=== PATIENT | female | born 1975 | race Caucasian/White ===

== ENCOUNTER 2017-08-22 | Inpatient (IN) | payer MEDICAID, SELFPAY | END 2017-08-26 08:15 | disposition home or self-care (01) | DRG 743 | PROVIDERS: Admitting Provider Obstetrics & Gynecology; Family Provider Family Medicine; Visit Provider Obstetrics & Gynecology | DX: N93.8 Other specified abnormal uterine and vaginal bleeding (principal); D25.9 Leiomyoma of uterus, unspecified; N83.202 Unspecified ovarian cyst, left side; N73.6 Female pelvic peritoneal adhesions (postinfective) | CPT/HCPCS: 58150; 49999; 36415; 36430; 81001; 85014; 85018; 86078; 86850; 86900; 86901; 86920; 86922; 87040; 96372; 96375; G0238; J0131; J2405; J2710; P9016 ==

== ENCOUNTER → 2017-12-23 12:46 | Outpatient (CLI) | payer MEDICAID, SELFPAY ==
--- NOTE | 2017-12-23 13:21 | US_ITS ---
US transvaginal HISTORY: Follow-up ovarian cyst ITS.REASON: OVARIAN CYSTS ORDERING PHYSICIAN: Eugene Michel MD PATIENT AGE: 42 years COMPARISON: 07/02/2017 FINDINGS: The uterus and left ovary have been removed surgically. The right ovary is 4.5 x 2.3 x 2.9 cm. There is a small right ovarian cyst at 1 cm and there is a septated 1.5 cm right ovarian cyst as well. Previously the largest right ovarian cyst was 2.3 cm. IMPRESSION: 1. Small right ovarian cysts. 2. Interval hysterectomy and left oophorectomy
== END ==
PROVIDERS: Family Provider Family Medicine; PCP Nurse Practitioner; Visit Provider Obstetrics & Gynecology
DX: R10.2 Pelvic and perineal pain (principal)
CPT/HCPCS: 76830

== ENCOUNTER → 2017-12-30 14:33 | Outpatient (CLI) | payer MEDICAID, SELFPAY ==
[2018-01-02 10:43] LABS: Cancer Antigen (CA) 125 6.7 U/mL (0.0-38.1)
== END ==
PROVIDERS: Visit Provider Obstetrics & Gynecology
DX: N94.9 Unspecified condition associated with female genital organs and menstrual cycle (principal)
CPT/HCPCS: 36415; 86316

== ENCOUNTER → 2018-01-16 14:00 | Outpatient (CLI) | payer MEDICAID, SELFPAY ==
[2018-01-16 14:07] LABS: Microscopic, Urine URINE MICROSCOPIC (MICROSCOPIC)
[2018-01-16 14:41] LABS: Appearance,Urine CLEAR (Clear); Blood, Urine 1+ (Negative); Color,Urine YELLOW (Yellow); Glucose,Urine (UA) Negative (Negative); Ketones,Urine TRACE (Negative); Leukocyte Esterase,Urine Negative (Negative); Nitrate,Urine Negative (Negative); Protein,Urine TRACE (Negative); Specific Gravity, Urine >= 1.030 (1.005-1.030); Urobilinogen,Urine 0.2 EU/dl (0.2)
[2018-01-16 14:43] LABS: Bilirubin,Urine 1+ (Negative)
[2018-01-16 14:58] LABS: Basophils # 0.1 K/mm3 (0-0.2); Basophils % 0.9 % (0.1-2.0); Eosinophils # 0.2 K/mm3 (0.0-0.4); Eosinophils % 2.4 % (0.1-12.0); Hematocrit 45.8 % (37.0-47.0); Lymphocytes # 2.8 K/mm3 (0.7-4.5); Lymphocytes % 34.6 K/mm3 (10-50); Mean Corpuscular HGB Conc 32.7 g/dL (31.8-35.4); Mean Corpuscular Hemoglobin 27.6 pg (27.0-31.2); Mean Corpuscular Volume 84.4 fl (81-99); Mean Platelet Volume 8.9 fl (7.4-10.4); Monocytes # 0.5 K/mm3 (0.1-1.0); Monocytes % 5.8 % (1.7-9.3); Neutrophils # 4.6 K/mm3 (1.8-7.8); Neutrophils % 56.4 % (37.0-80.0); Platelet Count 229 K/mm3 (142-424); Red Blood Count 5.43 M/mm3 (4.20-5.40); Red Cell Distribution Width 15.2 % (11.5-17.5); White Blood Count 8.1 K/mm3 (4.8-10.8)
[2018-01-16 17:38] LABS: Amorphous Sediment,Urine Trace /lpf; Mucus,Urine 1+ /lpf
[2018-01-16 17:55] LABS: Alanine Aminotransferase 25 U/L (12-78); Albumin Level 4.1 gm/dL (3.4-5.0); Albumin/Globulin Ratio 1.4 (1.1-1.8); Alkaline Phosphatase 69 U/L (46-116); Anion Gap 17.1 mEq/L (5-15); Aspartate Amino Transferase 16 U/L (15-37); Bilirubin,Total 0.2 mg/dL (0.2-1.0); Blood Urea Nitrogen 15 mg/dL (7-18); Calcium 9.3 mg/dL (8.5-10.1); Carbon Dioxide 22 mmol/L (21.0-32.0); Chloride 107 mmol/L (98-107); Creatinine,Serum 0.59 mg/dL (0.55-1.02); Estimated Glomerular Filt Rate 112 ml/min (>60); GFR (African American) 136 ML/MIN (>60); Glucose 122 mg/dL (74-106); Potassium 4.1 mmoL/L (3.5-5.1); Sodium 142 mmol/L (136-145); Total Protein,Serum 7.1 gm/dL (6.4-8.2)
== END ==
PROVIDERS: Visit Provider Obstetrics & Gynecology
DX: Z01.818 Encounter for other preprocedural examination (principal); N94.9 Unspecified condition associated with female genital organs and menstrual cycle; R10.2 Pelvic and perineal pain
CPT/HCPCS: 36415; 80053; 81001; 85025

== ENCOUNTER → 2018-02-10 12:52 | Outpatient (CLI) | payer MEDICAID, SELFPAY ==
--- NOTE | 2018-02-10 12:53 | MM_ITS ---
MM Dig mamm DX unilat LT CAD, US breast LT complete INDICATION: Follow-up abnormal mammogram and left breast biopsy ORDERING PHYSICIAN: Eugene Michel MD PATIENT AGE: 42 years COMPARISON: 07/02/2017, 06/05/2016 TECHNIQUE: Standard images performed along with problem solving views and left breast ultrasound FINDINGS: Dense fibroglandular tissue decreasing sensitivity of mammography. There is some asymmetric density in the medial aspect of the left breast which does appear to compress out on spot compression view. Previously there was a 14 mm nodular opacity in this region not readily apparent on today's exam. There was some asymmetric density in the inferior aspect of the left breast which did also appear to compress out as fibroglandular tissue. No malignant appearing mass or malignant appearing microcalcification is evident. There are clips present in the interaspect of the left breast as before. Left breast ultrasound: At 2:00 there is a hypoechoic area measuring 9 x 4 mm. Previously this measured 13 x 6 mm. This likely represents the area that was biopsied on 08/12/2017. No solid mass is evident. No suspicious abnormalities. IMPRESSION: Benign findings, postsurgical changes, no evidence of malignancy BI-RADS Category: 2 Benign Finding(s) RECOMMENDED FOLLOW-UP: 6M - 6 MONTH FOLLOW-UP Recommend resume bilateral screening mammogram June 2018 (A letter has been sent to the patient regarding results of the study.)
== END ==
PROVIDERS: Family Provider Family Medicine; PCP Family Medicine; Visit Provider Obstetrics & Gynecology
DX: R92.8 Other abnormal and inconclusive findings on diagnostic imaging of breast (principal)
CPT/HCPCS: 76641; 77065

== ENCOUNTER → 2018-05-13 08:41 | Outpatient (CLI) | payer MEDICAID, SELFPAY ==
--- NOTE | 2018-05-13 08:42 | US_ITS ---
US thyroid HISTORY: Choking, difficulty swallowing ITS.REASON: goiter ORDERING PHYSICIAN: Jorge Moss MD PATIENT AGE: 42 years Comparison: None FINDINGS: The right lobe is 4.1 x 1.3 x 1.9 cm 4 mm hypoechoic nodule upper pole 3 mm hypoechoic nodule lower pole, 4 mm complex cystic nodule lower pole 6 mm isoechoic nodule lower pole The left lobe is 3.7 x 1 x 1.7 cm. 4 mm hypoechoic nodule upper pole 3 mm hypoechoic nodule lower pole 3 mm solid-appearing nodule lower pole The isthmus is upper normal at 4 mm IMPRESSION: There are small bilateral thyroid nodules which are of low suspicion for malignancy. Consider 6 month follow-up to confirm stability
--- NOTE | 2018-05-13 08:42 | FL_ITS ---
EXAM: Barium swallow/esophagram. INDICATION: Dysphasia, enlarged thyroid ITS.REASON: dysphagia ORDERING PHYSICIAN: Jorge Moss MD PATIENT AGE: 42 years COMPARISON: None TECHNIQUE: In the upright position the patient was observed to swallow barium in both the AP and lateral view. The cervical esophagus was examined under fluoroscopy with images obtained. The patient was then placed prone in the right anterior oblique position and was observed to swallow barium with Valsalva technique . FLUOROSCOPY TIME: 52 seconds FINDINGS: There was no evidence of aspiration. There was normal peristalsis. No filling defects or mucosal abnormalities. No masses or strictures. The esophagus is midline. No esophageal deviation or compression. There is a small sliding hernia. Reflux was not demonstrated during the exam IMPRESSION: Small sliding hiatal hernia otherwise barium swallow. No esophageal compression or deviation
[2018-05-13 11:09] LABS: Free T4 (Free Thyroxine) 0.83 ng/dl (0.76-1.46); Thyroid Stimulating Hormone 1.06 uIU/ml (0.358-3.740)
[2018-05-15 13:22] LABS: Thyroid Peroxidase Antibodies 10 IU/mL (0-34)
[2018-05-15 17:28] LABS: Calcitonin <2.0 pg/mL (0.0-5.0); Thyroid Stimulating Immunoglob <0.10 IU/L (0.00-0.55)
== END ==
PROVIDERS: Family Provider Family Medicine; PCP Family Medicine; Visit Provider Otolaryngology
DX: E01.0 Iodine-deficiency related diffuse (endemic) goiter (principal); E04.9 Nontoxic goiter, unspecified
CPT/HCPCS: 36415; 74220; 76536; 82308; 84439; 84443; 84445; 86376

== ENCOUNTER → 2018-08-17 09:05 | Outpatient (CLI) | payer MEDICAID, SELFPAY ==
--- NOTE | 2018-08-17 09:16 | US_ITS ---
US thyroid HISTORY: Follow-up goiter, bilateral nodules ITS.REASON: GOITER ORDERING PHYSICIAN: Jorge Moss MD PATIENT AGE: 42 years Comparison: None FINDINGS: The right lobe is 4.1 x 1.3 x 1.7 cm. Multiple small cysts are present in the right lobe including a 4 mm hypoechoic nodule in the lower pole with a central area of increased echogenicity unchanged. The left lobe is 3.9 x 1.0 x 1.5 cm containing several small cysts the largest is 3 mm in the upper pole. The isthmus is slightly prominent at 4 mm. No solid suspicious nodules evident. IMPRESSION: Small bilateral thyroid nodules overall not significantly changed with low level of suspicion for malignancy
== END ==
PROVIDERS: PCP Family Medicine; Visit Provider Otolaryngology
DX: E04.9 Nontoxic goiter, unspecified (principal)
CPT/HCPCS: 76536

== ENCOUNTER → 2019-04-16 12:48 | Outpatient (CLI) | payer MEDICAID, SELFPAY ==
--- NOTE | 2019-04-16 12:50 | MM_ITS ---
MM Dig mamm BI DX w/CAD COMPARISON: Digital left mammogram with CAD 02/10/2018 and digital left mammogram with CAD 08/04/2017 INDICATION: Previous biopsy left breast for benign disease now complaining of possible new palpable area in her quadrant, also intermittent nipple discharge TECHNIQUE: Standard MLO and CC views were obtained along with spot compression MLO and CC views FINDINGS: Moderate scattered and heterogenic fibro glandular densities are seen throughout both breasts. Surgical clips are seen in the lower central portion left breast as before at the biopsy site. Marker was placed on the patient's skin inner left breast at the possible palpable site but there is no underlying abnormality. Ultrasound performed same date show no abnormality dislocation. There is a hypoechoic nodular lesion at the 1 to 2:00 position similar in size and appearance the previous ultrasound exam possibly due to a fibroadenoma but also could be secondary to scarring from the previous biopsy. There is a mole marker right breast. There is a possible asymmetric density outer quadrant right breast not definitely seen on the previous mammogram of the right breast June 2017. Recommend the patient return for spot compression views and ultrasound for additional evaluation. IMPRESSION: Stable post biopsy changes left breast, possible new developing asymmetric density right breast BI-RADS Category: 0 Need Additional Imaging Evaluation RECOMMENDED FOLLOW-UP: IMM - IMMEDIATE FOLLOW-UP RECOMMENDED (A letter has been sent to the patient regarding results of the study.)
== END ==
PROVIDERS: PCP Internal Medicine Adolescent Medicine; Visit Provider Obstetrics & Gynecology
DX: N63.20 Unspecified lump in the left breast, unspecified quadrant (principal)
CPT/HCPCS: 76641; 77066

== ENCOUNTER → 2019-04-17 09:47 | Outpatient (CLI) | payer MEDICAID, SELFPAY ==
--- NOTE | 2019-04-17 09:58 | XR_ITS ---
XR sacroiliac joint BI min 3V CLINICAL INDICATION: Pain ORDERING PHYSICIAN: Matthew Pedersen MD PATIENT AGE: 43 years Comparison: None FINDINGS: SI joints are unremarkable. No fracture, sclerosis, or lytic change evident. Minimal spurring noted along the inferior aspect of the right SI joint. IMPRESSION: Minimal degenerative change right SI joint otherwise negative
--- NOTE | 2019-04-17 09:58 | XR_ITS ---
XR hip LT 2-3V w/pelvis HISTORY: Pain ORDERING PHYSICIAN: Matthew Pedersen MD PATIENT AGE: 43 years COMPARISON: None FINDINGS: No fracture or dislocation is evident. No significant degenerative change. No lytic or blastic change. Unremarkable soft tissues IMPRESSION: Negative hip
== END ==
PROVIDERS: PCP Internal Medicine Adolescent Medicine; Visit Provider Internal Medicine Adolescent Medicine
DX: M25.552 Pain in left hip (principal); M54.5 Low back pain
CPT/HCPCS: 72202; 73502

== ENCOUNTER → 2019-04-30 13:25 | Outpatient (CLI) | payer MEDICAID, SELFPAY ==
--- NOTE | 2019-04-30 | US_ITS ---
PROCEDURE: MM DIG MAMM DX UNILAT RT CAD Right breast ultrasound complete with axilla CLINICAL INDICATION: abnormal mammogram COMPARISON: DMDXUL DIG MAMM-DX UNI-LT W/CAD from 08/12/2017 DXLT MM Dig mamm DX unilat LT CAD from 02/10/2018 DIG MAMM-SCREEN DAYNA from 04/16/2019 US BREAST RT COMPLETE from 04/30/2019 TECHNIQUE: Standard CC and MLO images were obtained. R2 CAD reviewed. Right breast ultrasound complete with axilla FINDINGS: Average fibroglandular tissue. There is a lobular 2.9 x 1.4 cm nodular density within the lower outer aspect of the right breast persistent on spot compression views. No malignant appearing microcalcifications. Right breast ultrasound: At 12 o'clock there is a 3 mm by 5 mm cyst. At 1 o'clock there is a 12 x 3 mm hypoechoic nodule which may represent a complex cyst. At 9 o'clock there is a 9 x 4 mm complex cystic nodule. 10 o'clock there is an 8 x 2 mm cyst. 11 o'clock there is a 9 by 9 mm complex cyst. There is a complex 2.6 x 0.7 cm nodular lesion at 9 o'clock containing both solid and cystic components parallel with the chest wall likely corresponding to the mammographic abnormality. IMPRESSION: Lobular 2.9 x 1.4 cm lesion at 9 o'clock in the right breast. This does not represent a simple cyst by ultrasound and is mildly suspicious and could represent a fibroadenoma. Biopsy is recommended. Suggest ultrasound guided mammotome biopsy BI-RAD Category: 4 Supicious Abnormality- Biopsy Considered FOLLOW-UP: Biopsy Recommended (A letter has been sent to the patient regarding results of the study.) Dictated by: Zeke Valladares MD 05/07/2019 09:36 Signed by: <Electronically signed by Zeke Valladares MD in [place]> 05/07/2019 09:36
== END ==
PROVIDERS: PCP Internal Medicine Adolescent Medicine; Visit Provider Obstetrics & Gynecology
DX: R92.8 Other abnormal and inconclusive findings on diagnostic imaging of breast (principal)
CPT/HCPCS: 76641; 77065

== ENCOUNTER → 2019-05-25 09:28 | Outpatient (CLI) | payer MEDICAID, SELFPAY ==
--- NOTE | 2019-05-25 09:30 | US_ITS ---
PROCEDURE: US MAMMOTOME BX RT CLINICAL INDICATION: abnormal mammogram Abnormal mammogram and ultrasound demonstrating a complex nodule in the right breast at 9 o'clock COMPARISON: US BREAST RT COMPLETE from 04/30/2019 MM DIG MAMM DX UNILAT RT CAD from 04/30/2019 MM CLIP PLACEMENT RT from 05/25/2019 FINDINGS: Following obtaining informed consent under aseptic conditions and local anesthesia with 1 percent buffered lidocaine and deeper anesthesia with lidocaine mixed with epinephrine, a skin sarah was performed and 9 gauge a mammotome needle inserted under sonographic guidance. Multiple cores were obtained and a sterile non ferromagnetic clip placed. The patient tolerated the procedure well without evidence of immediate complication. Post biopsy mammogram: Clip is present in the outer aspect of the right breast in the area of the mammographic abnormality. The rounded nodular area is less apparent. There are post biopsy changes. Pathology: Benign breast parenchyma with focal fibrocystic change negative for atypical ductal hyperplasia DCS or invasive carcinoma IMPRESSION: Uneventful ultrasound-guided mammotome biopsy of the right breast showing benign findings. Recommend six-month mammographic and sonographic follow-up per routine protocol Dictated by: Zeke Valladares MD 06/01/2019 17:48 Electronically signed by Zeke Valladares MD in [place] 06/01/2019 17:48
== END ==
PROVIDERS: PCP Internal Medicine Adolescent Medicine; Visit Provider Obstetrics & Gynecology
DX: R92.8 Other abnormal and inconclusive findings on diagnostic imaging of breast (principal); N63.12 Unspecified lump in the right breast, upper inner quadrant
CPT/HCPCS: 19083; 77065; C2618

== ENCOUNTER → 2019-08-26 13:47 | Outpatient (CLI) | payer MEDICAID, SELFPAY ==
[2019-08-26 19:32] LABS: Chloride 106 mmol/L (98-107); Potassium 4.8 mmoL/L (3.5-5.1); Sodium 145 mmol/L (136-145)
[2019-08-26 19:52] LABS: Alanine Aminotransferase 21 U/L (12-78); Albumin Level 4.4 gm/dL (3.4-5.0); Albumin/Globulin Ratio 1.5 (1.1-1.8); Alkaline Phosphatase 103 U/L (46-116); Anion Gap 16.8 mEq/L (5-15); Aspartate Amino Transferase 13 U/L (15-37); Bilirubin,Total 0.3 mg/dL (0.2-1.0); Blood Urea Nitrogen 12 mg/dL (7-18); Calcium 9.3 mg/dL (8.5-10.1); Carbon Dioxide 27 mmol/L (21.0-32.0); Creatinine,Serum 0.64 mg/dL (0.55-1.02); Estimated Glomerular Filt Rate 102 ml/min (>60); Free Thyroxine Index 3.5 ug/dL (5.93-13.13); GFR (African American) 123 ML/MIN (>60); Glucose 89 mg/dL (74-106); T4 (Thyroxine) 10.3 ug/dl (4.7-13.3); Thyroid Stimulating Hormone 0.86 uIU/ml (0.358-3.740); Total Protein,Serum 7.4 gm/dL (6.4-8.2); Triiodothryronine (T3) Uptake 34 % (31-39)
== END ==
PROVIDERS: Visit Provider Internal Medicine Adolescent Medicine
DX: I16.0 Hypertensive urgency (principal)
CPT/HCPCS: 36415; 80053; 84436; 84443; 84479

== ENCOUNTER 2019-10-04 13:02 | Observation (INO) ==
--- NOTE | 2019-10-04 13:30 | Pharmacy Consult Notes ---
[facility] Pharmacy VTE Monitoring - Patient Demographics Admission date: 10/04/19 Report Date: 10/04/19 Time: 13:30 Allergies/Adverse Reactions: Patient Allergies hydromorphone Allergy (Severe, Verified 08/26/19 09:50) S-DIFF. BREATHING propoxyphene [From DARVOCET-N] Allergy (Intermediate, Verified 08/26/19 09:50) SHORTNESS OF BREATH - Prophylaxis VTE Prophylaxis Ordered?: Yes Types of VTE Prophylaxis: TEDS Knee High Location of Applied Device: Bilateral Lower Extremeties - VTE Diagnosis Confirmed Treatment or plan recommended: Continue Current Treatment
[2019-10-04 14:36] LABS: Basophils % 0.5 % (0.1-2.0); Eosinophils # 0.2 K/mm3 (0.0-0.4); Eosinophils % 1.7 % (0.1-12.0); Hematocrit 50.5 % (37.0-47.0); Hemoglobin 16.7 g/dL (12.2-16.2); Lymphocytes # 2.4 K/mm3 (0.7-4.5); Lymphocytes % 26.6 % (10-50); Mean Corpuscular Volume 89.5 fl (81-99); Mean Platelet Volume 9.3 fl (7.4-10.4); Monocytes # 0.6 K/mm3 (0.1-1.0); Neutrophils % 65.3 % (37.0-80.0); Platelet Count 232 K/mm3 (142-424); Red Blood Count 5.65 M/mm3 (4.20-5.40); White Blood Count 9.2 K/mm3 (4.8-10.8)
[2019-10-04 14:53] LABS: Albumin/Globulin Ratio 1.3 (1.1-1.8); Anion Gap 12.6 mEq/L (5-15); Bilirubin,Total 0.3 mg/dL (0.2-1.0); Calcium 9.2 mg/dL (8.5-10.1); Globulin 3.2 gm/dl (1.3-3.2); Total Protein,Serum 7.2 gm/dL (6.4-8.2)
[2019-10-04 17:02] LABS: Microscopic, Urine URINE MICROSCOPIC (MICROSCOPIC)
[2019-10-04 17:06] LABS: Appearance,Urine CLEAR (Clear); Bilirubin,Urine Negative (Negative); Blood, Urine 1+ (Negative); Color,Urine YELLOW (Yellow); Glucose,Urine (UA) Negative (Negative); Ketones,Urine Negative (Negative); Leukocyte Esterase,Urine Negative (Negative); Protein,Urine Negative (Negative); Urobilinogen,Urine 0.2 EU/dl (0.2)
[2019-10-04 17:15] LABS: Bacteria,Urine Trace /lpf; RBC,Urine Occasional #/hpf (0-3); Squamous Epithelial Cell,Urine Occasional #/hpf (0-5); WBC,Urine Occasional #/hpf (0-3)
--- NOTE | 2019-10-04 17:15 | History & Physical Report ---
*Admission Date: 10/04/19 *Chief complaint: Left-sided flank pain. Hematuria *History of present illness: 43-year-old white female who went to the emergency department over the weekend with a chief complaint of flank pain, noted to have hematuria but CT stone protocol was unremarkable and she was treated with Toradol injections and discharged. She has failed to improve over the last 24 hours, came to my office, found to be tachycardic, and pain, CVA tenderness was noted, admitted to observation for repeat CT scanning, IV fluids and pain control. [facility] History I have reviewed the patient's past medical history: Yes Medical History: Reports:: Hypertension Denies:: Cancer, Diabetes Mellitus Type 1, Diabetes Mellitus Type 2, Internal Pacemaker, MRSA, Seizures *Have you ever received a pneumonia vaccine?: No *Have you received a flu vaccine this season?: No Other Medical History: Reports: Blood Transfusion Reaction, Hormone Therapy, Thyroid Disease, Other Laterality Cases: Left: Lumpectomy, Mastectomy, Bilateral: Other Other Surgeries: Yes: Hysterectomy-Total, Ureter Stent, Other. No: Pacemaker Amputation: No Fractures: No - *Social History Educational Level: Completed High School Smoking Status: Current every day smoker Tobacco Type: cigarettes # Packs/Day (cigarettes): 1 Alcohol Intake: never Alcohol Intake Frequency:: other Substance Use Type: denies use *Occupational Status:: unemployed Housing: house Household Members: spouse, children *Travel in the last 8 weeks: None Family Hx:: Coronary Artery Disease, Hypertension, Cancer, Diabetes Review of Systems - Review of Systems Review of systems:: pertinent systems reviewed and negative unless documented below - Constitutional Denies anorexia, Denies fever(s), Denies headache(s) - Eyes Denies blind spots - ENT Denies abnormal hearing, Denies dizziness, Denies dry mouth - *Cardiovascular Denies chest pain, Denies excessive sweating, Denies shortness of breath, Denies generalized swelling, Denies irregular heart rhythm - *Respiratory Denies change in phlegm color, Denies chest congestion, Denies shortness of breath with activity, Denies excessive phlegm production, Denies coughing up blood - *Gastrointestinal Reports abdominal pain, Denies change in bowel habits, Denies change in stools, Denies coffee ground vomit, Denies constipation - *Genitourinary Denies abnormal periods - *Musculoskeletal Denies abnormal walking, Denies joint swelling - Integumentary/Breasts Denies acne, Denies change in skin color - *Neurologic Denies abnormal walking, Denies behavioral changes Meds Home Medications Medication Instructions Recorded Confirmed Type Ondansetron [Zofran 4mg ODT] 4 mg PO TIDP PRN #10 tab.rapdis 09/24/19 10/04/19 Rx lisinopriL [Lisinopril 10mg Tab] 10 mg PO DAILY 10/04/19 10/04/19 History Allergies Allergy/AdvReac Type Severity Reaction Status Date / Time hydromorphone Allergy Severe S-DIFF. Verified 08/26/19 09:50 BREATHING propoxyphene Allergy Intermediate SHORTNESS Verified 08/26/19 09:50 [From GALILEOLynette] OF BREATH Exam Vital signs and Labs for Last 24 Hours: Temp Pulse Resp BP Pulse Ox 98.2 F 78 20 156/98 H 97 10/04/19 16:00 10/04/19 16:00 10/04/19 16:00 10/04/19 16:00 10/04/19 16:00 Laboratory Results - last 24 hr 10/04/19 14:16: WBC 9.2, RBC 5.65 H, Hgb 16.7 H, Hct 50.5 H, MCV 89.5, MCH 29.5, MCHC 33.0, RDW 13.0, Plt Count 232, MPV 9.3, Neut % (Auto) 65.3, Lymph % (Auto) 26.6, [place] % (Auto) 6.0, Eos % (Auto) 1.7, Baso % (Auto) 0.5, Neut # (Auto) 6.0, Lymph # (Auto) 2.4, [place] # (Auto) 0.6, Eos # (Auto) 0.2, Baso # (Auto) 0.0 10/04/19 14:16: Sodium 140, Potassium 3.6, Chloride 104, Carbon Dioxide 27, Anion Gap 12.6, BUN 13, Creatinine 0.69, Estimated Creat Clear 124, Estimated GFR 93, Est GFR ( Amer) 113, Glucose 83, Calcium 9.2, Magnesium 1.9, Total Bilirubin 0.3, AST 12 L, ALT 21, Alkaline Phosphatase 85, Total Protein 7.2, Albumin 4.0, Globulin 3.2, Albumin/Globulin Ratio 1.3, Amylase 29 10/04/19 14:16: Lipase 112 10/04/19 17:00: Urine Color Yellow, Urine Appearance Clear, Urine pH 6.0, Ur Specific [place] 1.010, Urine Protein Negative, Urine Glucose (UA) Negative, Urine Ketones Negative, Urine Blood 1+, Urine Nitrate Negative, Urine Bilirubin Negative, Urine Urobilinogen 0.2, Ur Leukocyte Esterase Negative I & O for Last 24 hours: Intake & Output 10/02/19 10/03/19 10/04/19 10/05/19 11:59 11:59 11:59 11:59 Intake Total 240 / 240 Output Total 0 / 0 Balance 240 / 240 Weight 163 lb 6 oz Narrative: Patient is in discomfort. Significant pain with CVA palpation. Tachycardia noted. Blood pressure is acceptable however. No JVD, oropharynx slightly dry. Lungs are clear, heart rate tachycardic but regular. Abdomen is soft but tender in the flanks and in both CVA areas, left worse than right. No edema or clubbing. Neurologically intact. Assessment and Plan (1) Right lower quadrant abdominal pain Current visit: No Status: Acute Category: Medical Code(s): R10.31 - Right lower quadrant pain Admit to observation, CT scan with contrast, labs, Toradol and IV fluids.
--- NOTE | 2019-10-05 11:45 | Discharge Summary ---
General - General Admission date:: 10/04/19 Discharge date: 10/05/19 HPI HPI: 43-year-old white female who went to the emergency department over the weekend with a chief complaint of flank pain, noted to have hematuria but CT stone protocol was unremarkable and she was treated with Toradol injections and discharged. She has failed to improve over the last 24 hours, came to my office, found to be tachycardic, and pain, CVA tenderness was noted, admitted to observation for repeat CT scanning, IV fluids and pain control. Objective Vital signs: Temp Pulse Resp BP Pulse Ox 97.4 F L 70 18 158/78 H 98 10/05/19 08:00 10/05/19 08:00 10/05/19 08:00 10/05/19 08:00 10/05/19 08:00 Results Labs on day of discharge: Labs from last 24 hours 10/04/19 10/04/19 10/04/19 17:00 14:16 14:16 WBC RBC Hgb Hct MCV MCH MCHC RDW Plt Count MPV Neut % (Auto) Lymph % (Auto) [place] % (Auto) Eos % (Auto) Baso % (Auto) Neut # (Auto) Lymph # (Auto) [place] # (Auto) Eos # (Auto) Baso # (Auto) Sodium 140 Potassium 3.6 Chloride 104 Carbon Dioxide 27 Anion Gap 12.6 BUN 13 Creatinine 0.69 Estimated Creat Clear 124 Estimated GFR 93 Est GFR ( Amer) 113 Glucose 83 Calcium 9.2 Magnesium 1.9 Total Bilirubin 0.3 AST 12 L ALT 21 Alkaline Phosphatase 85 Total Protein 7.2 Albumin 4.0 Globulin 3.2 Albumin/Globulin Ratio 1.3 Amylase 29 Lipase 112 Urine Color Yellow Urine Appearance Clear Urine pH 6.0 Ur Specific [place] 1.010 Urine Protein Negative Urine Glucose (UA) Negative Urine Ketones Negative Urine Blood 1+ Urine Nitrate Negative Urine Bilirubin Negative Urine Urobilinogen 0.2 Ur Leukocyte Esterase Negative Urine RBC Occasional Urine WBC Occasional Ur Squamous Epith Cells Occasional Urine Bacteria Trace 10/04/19 14:16 WBC 9.2 RBC 5.65 H Hgb 16.7 H Hct 50.5 H MCV 89.5 MCH 29.5 MCHC 33.0 RDW 13.0 Plt Count 232 MPV 9.3 Neut % (Auto) 65.3 Lymph % (Auto) 26.6 [place] % (Auto) 6.0 Eos % (Auto) 1.7 Baso % (Auto) 0.5 Neut # (Auto) 6.0 Lymph # (Auto) 2.4 [place] # (Auto) 0.6 Eos # (Auto) 0.2 Baso # (Auto) 0.0 Sodium Potassium Chloride Carbon Dioxide Anion Gap BUN Creatinine Estimated Creat Clear Estimated GFR Est GFR ( Amer) Glucose Calcium Magnesium Total Bilirubin AST ALT Alkaline Phosphatase Total Protein Albumin Globulin Albumin/Globulin Ratio Amylase Lipase Urine Color Urine Appearance Urine pH Ur Specific [place] Urine Protein Urine Glucose (UA) Urine Ketones Urine Blood Urine Nitrate Urine Bilirubin Urine Urobilinogen Ur Leukocyte Esterase Urine RBC Urine WBC Ur Squamous Epith Cells Urine Bacteria DS: Diagnosis - Discharge Diagnosis (1) Right lower quadrant abdominal pain Status: Acute Discharge Plan - Patient Discharge Instructions ACTIVITY: Continue current activity DIET: continue same diet Patient Instructions: DI for Nausea -- Adult, DI for Hematuria, DI for Flank Pain - Follow up Plan Follow up with: Matthew Pedersen MD [Primary Care Provider] - Ari Thompson MD [Staff Physician] - Disposition: Home, Self-[facility] Medications: Home Medications Medication Instructions Recorded Confirmed Type Ondansetron [Zofran 4mg ODT] 4 mg PO TIDP PRN #10 tab.rapdis 09/24/19 10/04/19 Rx lisinopriL [Lisinopril 10mg Tab] 20 mg PO DAILY 30 Days #30 tab 10/05/19 Rx Prescriptions/Medication Reconciliation: Continued Ondansetron [Zofran 4mg ODT] 4 mg PO TIDP PRN #10 tab.rapdis PRN Reason: Nausea And Vomiting Changed lisinopriL [Lisinopril 10mg Tab] 20 mg PO DAILY 30 Days #30 tab - Problem Reconciliation Problems Reviewed?: Yes
--- NOTE | 2019-10-05 11:46 | Discharge Summary ---
General - General Admission date:: 10/04/19 Discharge date: 10/05/19 HPI HPI: 43-year-old white female who went to the emergency department over the weekend with a chief complaint of flank pain, noted to have hematuria but CT stone protocol was unremarkable and she was treated with Toradol injections and discharged. She has failed to improve over the last 24 hours, came to my office, found to be tachycardic, and pain, CVA tenderness was noted, admitted to observation for repeat CT scanning, IV fluids and pain control. Hospital Course Hospital Course: Patient was admitted to the hospital for persistent pain and concern for possible pyelonephritis/flank pain. Repeat imaging showed no stones or urologic abnormality. Continued Toradol for pain control with good response. Patient had no further significant episodes during monitoring of discomfort. Denies nausea, vomiting, diarrhea, chest pain, shortness of breath. Was medically stable, plan to discharge home with close follow-up. Continued p.o. ketorolac for pain management. Discussed adequate hydration. No further acute needs at this time. Hemodynamically stable and afebrile. Cultures unremarkable Objective Vital signs: Temp Pulse Resp BP Pulse Ox 97.4 F L 70 18 158/78 H 98 10/05/19 08:00 10/05/19 08:00 10/05/19 08:00 10/05/19 08:00 10/05/19 08:00 no acute distress - *Routine HEENT Exam Head: Present: normocephalic, atraumatic Eye: Present: EOMI, PERRL ENT: Present: mucous membranes moist - *Routine Neck Exam Present: supple. Absent: JVD - *Routine Respiratory Exam Present: CTA bilaterally. Absent: accessory muscle use, wheezes, crackles - *Routine Cardiovascular Exam Present: RRR, Normal S1, Normal S2. Absent: murmur - *Routine Abdominal Exam Present: soft, normoactive bowel sounds. Absent: tenderness - *Routine Skin Exam Present: intact. Absent: cyanosis, erythema - *Routine Neurological Exam Present: alert, oriented X3 Results Labs on day of discharge: Labs from last 24 hours 10/04/19 10/04/19 10/04/19 17:00 14:16 14:16 WBC RBC Hgb Hct MCV MCH MCHC RDW Plt Count MPV Neut % (Auto) Lymph % (Auto) Ashley % (Auto) Eos % (Auto) Baso % (Auto) Neut # (Auto) Lymph # (Auto) Ashley # (Auto) Eos # (Auto) Baso # (Auto) Sodium 140 Potassium 3.6 Chloride 104 Carbon Dioxide 27 Anion Gap 12.6 BUN 13 Creatinine 0.69 Estimated Creat Clear 124 Estimated GFR 93 Est GFR ( Amer) 113 Glucose 83 Calcium 9.2 Magnesium 1.9 Total Bilirubin 0.3 AST 12 L ALT 21 Alkaline Phosphatase 85 Total Protein 7.2 Albumin 4.0 Globulin 3.2 Albumin/Globulin Ratio 1.3 Amylase 29 Lipase 112 Urine Color Yellow Urine Appearance Clear Urine pH 6.0 Ur Specific [place] 1.010 Urine Protein Negative Urine Glucose (UA) Negative Urine Ketones Negative Urine Blood 1+ Urine Nitrate Negative Urine Bilirubin Negative Urine Urobilinogen 0.2 Ur Leukocyte Esterase Negative Urine RBC Occasional Urine WBC Occasional Ur Squamous Epith Cells Occasional Urine Bacteria Trace 10/04/19 14:16 WBC 9.2 RBC 5.65 H Hgb 16.7 H Hct 50.5 H MCV 89.5 MCH 29.5 MCHC 33.0 RDW 13.0 Plt Count 232 MPV 9.3 Neut % (Auto) 65.3 Lymph % (Auto) 26.6 Ashley % (Auto) 6.0 Eos % (Auto) 1.7 Baso % (Auto) 0.5 Neut # (Auto) 6.0 Lymph # (Auto) 2.4 Ashley # (Auto) 0.6 Eos # (Auto) 0.2 Baso # (Auto) 0.0 Sodium Potassium Chloride Carbon Dioxide Anion Gap BUN Creatinine Estimated Creat Clear Estimated GFR Est GFR ( Amer) Glucose Calcium Magnesium Total Bilirubin AST ALT Alkaline Phosphatase Total Protein Albumin Globulin Albumin/Globulin Ratio Amylase Lipase Urine Color Urine Appearance Urine pH Ur Specific [place] Urine Protein Urine Glucose (UA) Urine Ketones Urine Blood Urine Nitrate Urine Bilirubin Urine Urobilinogen Ur Leukocyte Esterase Urine RBC Urine WBC Ur Squamous Epith Cells Urine Bacteria DS: Diagnosis - Discharge Diagnosis (1) Right lower quadrant abdominal pain Status: Acute (2) Renal cyst Status: Chronic (3) HTN (hypertension) Status: Chronic Discharge Plan - Patient Discharge Instructions ACTIVITY: Continue current activity DIET: continue same diet Patient Instructions: DI for Nausea -- Adult, DI for Hematuria, DI for Flank Pain - Follow up Plan Follow up with: Matthew Pedersen MD [Primary Care Provider] - Ari Thompson MD [Staff Physician] - Disposition: Home, Self-Senior Care Medications: Home Medications Medication Instructions Recorded Confirmed Type Ondansetron [Zofran 4mg ODT] 4 mg PO TIDP PRN #10 tab.rapdis 09/24/19 10/08/19 Rx Ketorolac Tromethamine [Toradol 10 mg PO Q6H PRN 4 Days #16 tab 10/05/19 10/08/19 Rx 10mg tablet] lisinopriL [Lisinopril 10mg Tab] 20 mg PO DAILY 30 Days #30 tab 10/05/19 10/08/19 Rx Prescriptions/Medication Reconciliation: New Ketorolac Tromethamine [Toradol 10mg tablet] 10 mg PO Q6H PRN 4 Days #16 tab PRN Reason: Breakthru Moderate Pain Continued Ondansetron [Zofran 4mg ODT] 4 mg PO TIDP PRN #10 tab.rapdis PRN Reason: Nausea And Vomiting Changed lisinopriL [Lisinopril 10mg Tab] 20 mg PO DAILY 30 Days #30 tab - Problem Reconciliation Problems Reviewed?: Yes
--- NOTE | 2019-10-07 15:43 | Electrocardiograph Report ---
APPROVED REPORT Exam: Resting ECG HR:63 bpm ECG Measurements Heart Rate 63 AXES OH 150 P 42 QRSd 74 QRS 65 QT 416 T61 QTc 425 <Conclusion> Normal sinus rhythm Normal ECG Electronically signed by : Matthew Pedersen, 10/07/2019 15:43:29
== END 2019-10-05 13:42 | disposition home or self-care (01) ==
LOC: 2ND
PROVIDERS: ADMIT Internal Medicine Adolescent Medicine; ATTEND Internal Medicine Adolescent Medicine
CPT/HCPCS: 74178; 80053; 81001; 82150; 83690; 83735; 85025; 90686; 93005; G0378; Q9967

== ENCOUNTER → 2019-10-15 16:21 | Outpatient (CLI) | payer OTHER, SELFPAY ==
--- NOTE | 2019-10-15 16:24 | XR_ITS ---
PROCEDURE: XR THORACIC SPINE 3V CLINICAL INDICATION: THORACIC MYOFASCIAL STRAIN Mid back pain COMPARISON: No exams were available for comparison FINDINGS: There is normal alignment. No fracture or dislocation. No lytic or blastic change. There is a mildly prominent transverse process on the at C7 as a normal variant IMPRESSION: No acute findings. Dictated by: Zeke Valladares MD 10/15/2019 16:47 Electronically signed by Zeke Valladares MD in [place] 10/15/2019 16:47
== END ==
PROVIDERS: PCP Internal Medicine Adolescent Medicine; Visit Provider Internal Medicine Adolescent Medicine
DX: S29.019D Strain of muscle and tendon of unspecified wall of thorax, subsequent encounter (principal)
CPT/HCPCS: 72072

== ENCOUNTER → 2019-11-24 14:13 | Outpatient (CLI) | payer OTHER, SELFPAY ==
--- NOTE | 2019-11-24 14:13 | US_ITS ---
PROCEDURE: MM DIG MAMM BI DX W/CAD Digital Breast Tomosynthesis Included CLINICAL INDICATION: 6 month bx. f/u COMPARISON: DMDXUL DIG MAMM-DX UNI-LT W/CAD from 08/12/2017 DXLT MM Dig mamm DX unilat LT CAD from 02/10/2018 DIG MAMM-SCREEN DAYNA from 04/16/2019 MM DIG MAMM DX UNILAT RT CAD from 04/30/2019 US BREAST RT COMPLETE from 04/30/2019 MM CLIP PLACEMENT RT from 05/25/2019 US MAMMOTOME BX RT from 05/25/2019 US BREAST RT COMPLETE from 11/24/2019 TECHNIQUE: Standard CC and MLO images and 3D Tomosynthesis was obtained. R2 CAD reviewed. Right breast ultrasound complete with axilla FINDINGS: There is average fibroglandular tissue. Scattered benign-appearing calcifications are noted. Previously noted lobular lesion in lateral aspect of the right breast is not apparent compared to the pre biopsy exam of 04/30/2019. There is a post biopsy clip in the outer aspect of the right breast. Stable asymmetry noted in the medial aspect of the right breast. There postsurgical changes of the left breast with clips in the inferior aspect of the left breast.. A clip is also present in the outer aspect of the left breast. Left breast ultrasound: The there are multiple complicated left breast cyst including a 4 mm cyst at 12 o'clock, 5 mm complicated cyst at 1 o'clock, 9 x 4 mm complicated cyst at 4 o'clock, and a an 8 x 4 mm cyst which is complicated at 9 o'clock. 8 x 4 mm cyst at 11 o'clock. No suspicious nodules evident. IMPRESSION: BI-RAD Category: 2 Benign Finding(s) FOLLOW-UP: 1YR 1 Year Follow-up (A letter has been sent to the patient regarding results of the study.) Dictated by: Zeke Valladares MD 11/30/2019 10:20 Electronically signed by Zeke Valladares MD in [place] 11/30/2019 10:20
== END ==
PROVIDERS: PCP Internal Medicine Adolescent Medicine; Visit Provider Obstetrics & Gynecology
DX: R92.8 Other abnormal and inconclusive findings on diagnostic imaging of breast (principal)
CPT/HCPCS: 76641; 77062; 77066; G0279

== ENCOUNTER 2020-01-20 18:40 | Emergency (ER) | payer OTHER, SELFPAY ==
[2020-01-20 18:41] VITALS: BP 122/85; PULSE 78; RESP 20; TEMP 36.8; O2SAT 98; BMI 28.3
--- NOTE | 2020-01-20 19:05 | XR_ITS ---
PROCEDURE: XR FOOT RT MIN 3V CLINICAL INDICATION: great toe injury Posttraumatic pain COMPARISON: [id number] XR foot RT min 3V from 08/21/2018 FINDINGS: There is a faint curve a oblique lucency along the distal and lateral aspect of the distal phalanx of the great toe as seen on the oblique view. This could be due to a Mach line or nondisplaced fracture. Please correlate with patient's area of pain and tenderness. Consider follow-up exam in 7-10 days for confirmation. IMPRESSION: Possible nondisplaced fracture involving the distal and lateral aspect of the distal phalanx of the great toe Dictated by: Zeke Valladares MD 01/20/2020 20:49 Electronically signed by Zeke Valladares MD in [place] 01/20/2020 20:49
--- NOTE | 2020-01-20 19:14 | HMH.EDGENADL ---
ED Disposition Clinical Impression: Toenail avulsion Qualifiers: Encounter type: initial encounter Qualified Code(s): S91.209A - Unspecified open wound of unspecified toe(s) with damage to nail, initial encounter Disposition: Home, Self-Care Condition on Discharge: Good Instructions: DI for Ingrown Toenail Removal Additional Instructions: Gently cleanse the toe daily and apply antibiotic ointment and bandage. Wear postop shoe for 1 week. Tylenol 3 as needed for pain. Additional instructions for CONTROLLED SUBSTANCES: You have been prescribed a medication that is a controlled substance. Controlled substances include pain medications known as opiates and sedative nerve medications known as benzodiazepines. Tramadol, fioricet, and gabapentin are also controlled substances. Some common opiates include: Codeine (such as Tylenol #3) Hydrocodone (Vicodin, Lortab, Lorcet, [place]) Oxycodone (Percocet, Percodan, Oxycodone, Oxy IR) Some common benzodiazepines include: Diazepam (Valium) Lorazepam (Ativan) Alprazolam (Xanax) Clonazepam (Klonopin) Oxazepam (Serax) All of these controlled substances are highly addictive and frequently abused. Misuse can and frequently does lead to addiction as well as overdose and . Medication should be stored in a locked cabinet or other secure storage unit. Do not store the medication in a motor vehicle. Short term supplies, 3 days or less, are prescribed because of the highly addictive nature of the medication. Any of the controlled substance medication NOT taken should be disposed of properly and NOT SAVED. The recommended method of disposing of unused medications is: Place the medicines in a sealable plastic bag. If the medicine is a solid, crush it or add water to dissolve it. Add something undesirable (cat litter, coffee grounds, etc.) Dispose of sealed bag in household trash Do not flush or pour unused medicines down a sink or drain. Controlled substances should not be shared, given away or sold. Because of the addictive nature and frequent abuse, these medications are sometimes stolen. These medications should be kept in a safe place where they cannot be stolen. Do not keep them in your car or purse. Lost or stolen prescriptions for controlled substances WILL NOT BE REFILLED in this emergency department, regardless of whether a police report was filed. Referrals: Matthew Pedersen MD [Primary Care Provider] - Forms: Work/School Release - Critical Care Critical Care Time: No Attestation: On 01/20/20, the high probability of a clinically significant, sudden or life threatening deterioration of the following system(s) required my full and direct attention, intervention and personal management. The time I documented below is in addition to time spent performing reported procedures but includes the following listed in this critical care notation. Medical Decision Making - Silverio Inquiry Pt receiving controlled substance: Yes Silverio was queried for this patient: Yes Reference #:: [id number] Risks and benefits of using a controlled substance: were discussed with pt by me Comment: in progress Vital Signs: 01/20/20 18:41 Temperature 98.2 F Temperature Source Oral Pulse Rate [Right] 78 Respiratory Rate 20 Blood Pressure [Right Arm] 122/85 Blood Pressure Mean [Right Arm] 97 02 Sat by Pulse Oximetry 98 Orders (Tests/Meds): ED MEDICATIONS Discontinued Medications Generic Name Dose Route Start Last Admin Trade Name Freq PRN Reason Stop Dose Admin Acetaminophen/Codeine Phosphate 1 tobi 01/20/20 19:42 Acetaminophen W/Codeine #3 Take Home Pack (6) PO 01/20/20 19:43 ONCE ONE Lidocaine HCl 20 ml 01/20/20 19:17 Lidocaine 2% 20ml Vial IJ 01/20/20 19:18 ONCE ONE ORDERS Category Date Time Status Foot XR right minimum 3 views [XR foot RT min 3V] Stat Exams 01/20/20 19:05 Taken - Radiology Data #1 Image(s): Foot/Toes
[2020-01-20 20:20] VITALS: BP 135/71; PULSE 82; RESP 20; TEMP 36.8; O2SAT 96
== END 2020-01-20 20:25 | disposition home or self-care (01) ==
PROVIDERS: Emergency Provider Emergency Medicine; PCP Internal Medicine Adolescent Medicine
DX: S91.211A Laceration without foreign body of right great toe with damage to nail, initial encounter (principal); W23.0XXA Caught, crushed, jammed, or pinched between moving objects, initial encounter; Y92.017 Garden or yard in single-family (private) house as the place of occurrence of the external cause; I10 Essential (primary) hypertension; Z87.442 Personal history of urinary calculi; Z90.10 Acquired absence of unspecified breast and nipple; F17.210 Nicotine dependence, cigarettes, uncomplicated; Z90.79 Acquired absence of other genital organ(s)
CPT/HCPCS: 11730; 73630; 99281

== ENCOUNTER 2020-02-10 20:33 | Emergency (ER) | payer OTHER, SELFPAY ==
[2020-02-10 20:39] VITALS: BMI 27.8
--- NOTE | 2020-02-10 20:39 | XR_ITS ---
PROCEDURE: XR TIBIA FIBULA LT 2V CLINICAL INDICATION: injury posttraumatic pain, injury with pain COMPARISON: No exams were available for comparison FINDINGS: No fracture or dislocation. No lytic or blastic change. There is some mild soft tissue swelling in the pretibial region proximally IMPRESSION: Mild soft tissue swelling otherwise negative Dictated by: Zeke Valladares MD 02/11/2020 05:32 Electronically signed by Zeke Valladares MD in [place] 02/11/2020 05:32
[2020-02-10 20:55] VITALS: BP 143/95; PULSE 103; RESP 20; TEMP 36.6; O2SAT 97; BMI 27.8
--- NOTE | 2020-02-10 21:01 | HMH.EDUTC ---
[facility] [place] Disposition Clinical Impression: Left leg pain, Hematoma Disposition: Home, Self-Care Condition on Discharge: Good Instructions: DI for Hematoma (Bruise), DI for Leg Pain Additional Instructions: Rest the extremity, a Elevate the extremity as tolerated while you are resting. Take ibuprofen for pain. I sent in a prescription to your pharmacy. Follow up with Dr. Bose (orthopedics). I put in a referral but you need to call her office and schedule an appointment. Follow up with your regular doctor. GO TO THE ER FOR ANY WORSENING SYMPTOMS Prescriptions: Ibuprofen [Ibuprofen 800mg Tablet] 800 mg PO Q8HP PRN #30 tab PRN Reason: Moderate Pain Transmission Status: Received by [facility] Referrals: Matthew Pedersen MD [Primary Care Provider] - Marcelle Bose MD [Physician] - Time of Disposition: 21:07 Medical Decision Making - Medical Records Medical records reviewed: No: I reviewed the patient's medical records. - Silverio Inquiry Pt receiving controlled substance: No Vital Signs: 02/10/20 20:55 02/10/20 21:06 Temperature 97.9 F 97.9 F Temperature Source Oral Pulse Rate 103 H Pulse Rate [Right Brachial] 103 H Respiratory Rate 20 20 Blood Pressure 143/95 H Blood Pressure [Right Arm] 143/95 H Blood Pressure Mean [Right Arm] 111 Blood Pressure Source [Right Arm] Automatic Cuff Blood Pressure Position [Right Arm] Sitting 02 Sat by Pulse Oximetry 97 Oxygen Delivery Method Room Air Orders (Tests/Meds): ORDERS Category Date Time Status Tibia/fibula XR left 2 views [XR tibia fibula LT 2V] Exams 02/10/20 20:39 Taken Stat - Radiology Data #1 Image(s): Tib/Fib Image Reviewed: Yes I reviewed the patient's radiology image Preliminary Findings: No Fracture Seen [facility] [place] HPI - General Stated complaint: AO 0515 injured Lef leg Time Seen by Provider: 02/10/20 20:55 Mode of Arrival: Ambulatory Source of Information: Patient Limitations: No Limitations Description of Symptoms (Recalled from Triage Doc. by RN): PATIENT STATES THAT ON 01/27, SHE FELL INTO A METAL PLANT STAND AND INJURED HER LEFT LEG. KNOT AND HEALING BRUISES NOTED TO OUTER PROXIMAL LEFT LOWER LEG. SHE SAW DR. BARNES ON 3/18 (RIGHT FOOT PREVIOUSLY FRACTURED), WHO STATES THAT SHE NEEDED TO SEEK TREATMENT IF LEG DOES NOT IMPROVE. HEENT Symptoms (Recalled from RN notes): No Resp Symptoms (Recalled from RN notes): No Skin Symptoms (Recalled from RN notes): No MS Symptoms (Recalled from RN notes): Yes Functional Status (Recalled from RN notes): WNL - History of Present Illness Provider Complaint: She fell and bumper her left leg into a metal plant stand on 01/27. Since then she has had bruising, swelling and tenderness in the injured area on the lateral aspect of the lower leg. - Related Data Home Medications Medication Instructions Recorded Confirmed hydrocodone 7.5 mg-ibuprofen 200 1 tab PO Q6H tab 01/31/20 02/10/20 mg tablet Previous Rx's Medication Instructions Recorded Ondansetron [Zofran 4mg ODT] 4 mg PO TIDP PRN #10 tab.rapdis 09/24/19 lisinopriL [Lisinopril 10mg Tab] 20 mg PO DAILY 30 Days #30 tab 10/05/19 diclofenac sodium 1 % topical gel 4 g TOPICAL QID PRN #30 g 01/31/20 Ibuprofen [Ibuprofen 800mg 800 mg PO Q8HP PRN #30 tab 02/10/20 Tablet] Allergies Allergy/AdvReac Type Severity Reaction Status Date / Time hydromorphone Allergy Severe S-DIFF. Verified 01/31/20 08:18 BREATHING propoxyphene Allergy Intermediate SHORTNESS Verified 01/31/20 08:18 [From [facility]] OF BREATH - Worker's Comp Is this a Worker's Comp case?: No [facility] History - Hepatitis A Screen Drug use history?: No High risk sexual behaviors?: No History of sexually transmitted infection?: No Currently employed?: No Childcare worker?: No Do you have indoor plumbing?: Yes Do you have electricity?: Yes Attestation statement:: This patient has been screened for Hepatiti
[2020-02-10 21:06] VITALS: BP 143/95; PULSE 103; RESP 20; TEMP 36.6; O2SAT 97
== END 2020-02-10 21:15 | disposition home or self-care (01) ==
PROVIDERS: Emergency Provider Nurse Practitioner Family; PCP Internal Medicine Adolescent Medicine
DX: S80.12XA Contusion of left lower leg, initial encounter (principal); W01.198A Fall on same level from slipping, tripping and stumbling with subsequent striking against other object, initial encounter; Y92.019 Unspecified place in single-family (private) house as the place of occurrence of the external cause; I10 Essential (primary) hypertension; Z87.442 Personal history of urinary calculi; G43.709 Chronic migraine without aura, not intractable, without status migrainosus; Z90.79 Acquired absence of other genital organ(s)
CPT/HCPCS: 73590; 99201

== ENCOUNTER → 2020-02-21 08:44 | Outpatient (CLI) | payer OTHER, SELFPAY ==
--- NOTE | 2020-02-21 08:50 | XR_ITS ---
PROCEDURE: XR FOOT WT BEARING RT 3V CLINICAL INDICATION: Fracture of Right Great Toe. COMPARISON: [id number] XR foot RT min 3V from 08/21/2018 XR FOOT RT MIN 3V from 01/20/2020 FINDINGS: The lucency at the tip the distal phalanx of the great toe is once again noted but appears less apparent indicating fracture healing. No displacement. No other significant anomalies are evident. The joint spaces are well-preserved. No significant degenerative/arthritic changes. No erosive changes evident. Other findings:None. IMPRESSION: Healing fracture of the great toe nondisplaced Dictated by: Zeke Valladares MD 02/21/2020 09:24 Electronically signed by Zeke Valladares MD in [place] 02/21/2020 09:24
== END ==
PROVIDERS: PCP Internal Medicine Adolescent Medicine; Visit Provider Podiatrist
DX: S92.424A Nondisplaced fracture of distal phalanx of right great toe, initial encounter for closed fracture (principal)
CPT/HCPCS: 73630

== ENCOUNTER → 2020-03-01 14:57 | Outpatient (CLI) | payer OTHER, SELFPAY ==
--- NOTE | 2020-03-01 14:58 | CA_ITS ---
APPROVED REPORT Left Lower Extremity Venous Study for DVT. Command And Control Officer: Jocelyn Glez RVT Indications Lower Extremity Pain: Current Smoker PAIN IN LEFT CALF,PT HAS HEMATOMA LT LATERAL PROXIMAL LOWER LEG THAT HAS BEEN PRESENT FOR SEVERAL WKS Risk Factors Current Smoker Vein Imaging CFV (L): compressive, spontaneous, phasic, augmentation FEM (L): compressive, spontaneous, phasic, augmentation POP (L): compressive, spontaneous, phasic, augmentation PTV (L): Compressible GSV (L): Compressible Peroneals (L):Compressible GAS (L): Compressible Conclusion No evidence of DVT or superficial thrombophlebitis in the veins scanned of the left lower extremity. Critical Notification Physician Notified Date: 03/01/2020 Time: 15:26 Physician Name: Stefanie Bose's office Electronically signed by : Zeke Valladares MD 03/03/2020 09:00:42
== END ==
PROVIDERS: PCP Internal Medicine Adolescent Medicine; Visit Provider Orthopaedic Surgery
DX: M79.662 Pain in left lower leg (principal)
CPT/HCPCS: 93971

== ENCOUNTER → 2020-03-09 12:04 | Outpatient (CLI) | payer OTHER, SELFPAY ==
--- NOTE | 2020-03-09 12:10 | XR_ITS ---
PROCEDURE: XR FOOT WT BEARING RT 3V CLINICAL INDICATION: fracture follow up COMPARISON: [id number] XR foot RT min 3V from 08/21/2018 XR FOOT RT MIN 3V from 01/20/2020 XR FOOT WT BEARING RT 3V from 02/21/2020 FINDINGS: There is a healed subtle tuft fracture of the 1st digit. Soft tissues are intact. IMPRESSION: As above Dictated by: Camilo Salazar 03/09/2020 13:12 Electronically signed by Camilo Salazar in [place] 03/09/2020 13:12
== END ==
PROVIDERS: PCP Internal Medicine Adolescent Medicine; Visit Provider Podiatrist
DX: T14.8XXA Other injury of unspecified body region, initial encounter (principal); M79.671 Pain in right foot
CPT/HCPCS: 73630

== ENCOUNTER → 2020-04-19 15:36 | Outpatient (CLI) | payer OTHER, SELFPAY ==
--- NOTE | 2020-04-19 | XR_ITS ---
PROCEDURE: XR CHEST PORTABLE CLINICAL HISTORY: COVID TESTING Cough and congestion COMPARISON: CR CXR CHEST(2 VIEWS-NOT PORTABLE) from 12/18/2014 CR CXR CHEST(2 VIEWS-NOT PORTABLE) from 02/06/2015 FINDINGS: The cardiomediastinal silhouette and pulmonary vascularity are within normal limits. The lungs are clear without infiltrates, suspicious nodules, or pleural effusions. Calcified granuloma is present in the right midlung laterally No acute bony abnormalities. IMPRESSION: No acute findings. Dictated b Zeke Valladares MD 04/19/2020 16:52 Zeke Valladares MD in [place] 04/19/2020 16:52
[2020-04-19 16:13] LABS: Alanine Aminotransferase 22 U/L (12-78); Albumin Level 4.5 g/dl (3.5-5.0); Albumin/Globulin Ratio 1.7 (1.1-1.8); Alkaline Phosphatase 76 U/L (38-126); Aspartate Amino Transferase 29 U/L (14-36); Bilirubin,Total 0.3 mg/dl (0.2-1.3); Blood Urea Nitrogen 14 mg/dl (7-17); Calcium 9.7 mg/dl (8.4-10.2); Carbon Dioxide 31 mmol/L (22.0-30.0); Chloride 102 mmol/L (98-107); Estimated Glomerular Filt Rate 109 ml/min (>60); GFR (African American) 132 ML/MIN (>60); Globulin 2.6 g/dL (1.3-3.2); Glucose 87 mg/dl (74-100); Sodium 143 mmol/L (136-145); Total Protein,Serum 7.1 g/dl (6.3-8.2)
[2020-04-19 16:39] LABS: Basophils # 0.1 K/mm3 (0-0.2); Basophils % 0.9 % (0.1-2.0); Eosinophils # 0.2 K/mm3 (0.0-0.4); Eosinophils % 2.8 % (0.1-12.0); Hematocrit 46.3 % (37.0-47.0); Hemoglobin 15.4 g/dL (12.2-16.2); Lymphocytes # 2.6 K/mm3 (0.7-4.5); Lymphocytes % 36.7 % (10-50); Mean Corpuscular HGB Conc 33.2 g/dL (31.8-35.4); Mean Corpuscular Hemoglobin 30.6 pg (27.0-31.2); Mean Platelet Volume 9.7 fl (7.4-10.4); Monocytes # 0.4 K/mm3 (0.1-1.0); Monocytes % 5.6 % (1.7-9.3); Neutrophils # 3.9 K/mm3 (1.8-7.8); Platelet Count 227 K/mm3 (142-424); Red Blood Count 5.03 M/mm3 (4.20-5.40); Red Cell Distribution Width 13.2 % (11.5-17.5); White Blood Count 7.2 K/mm3 (4.8-10.8)
== END ==
PROVIDERS: PCP Internal Medicine Adolescent Medicine; Visit Provider Internal Medicine Adolescent Medicine
DX: Z20.828 Contact with and (suspected) exposure to other viral communicable diseases (principal); R05 Cough
CPT/HCPCS: 36415; 71045; 80053; 85025; U0003

== ENCOUNTER → 2020-08-02 12:47 | Outpatient (CLI) | payer OTHER, SELFPAY ==
[2020-08-03 09:23] LABS: Covid-19 Nasal PCR Sendout Lex NOT DETECTED
== END ==
PROVIDERS: PCP Internal Medicine Adolescent Medicine; Visit Provider Internal Medicine Adolescent Medicine
DX: Z03.818 Encounter for observation for suspected exposure to other biological agents ruled out (principal)
CPT/HCPCS: U0004

== ENCOUNTER → 2020-12-14 16:07 | Outpatient (CLI) | payer OTHER, SELFPAY ==
[2020-12-14 17:04] LABS: Basophils # 0.1 K/mm3 (0-0.2); Eosinophils # 0.2 K/mm3 (0.0-0.4); Eosinophils % 1.8 % (0.1-12.0); Hematocrit 49.9 % (37.0-47.0); Hemoglobin 16.1 g/dL (12.2-16.2); Lymphocytes % 35.5 % (10-50); Mean Corpuscular HGB Conc 32.3 g/dL (31.8-35.4); Mean Corpuscular Hemoglobin 29.9 pg (27.0-31.2); Mean Corpuscular Volume 92.8 fl (81-99); Mean Platelet Volume 8.9 fl (7.4-10.4); Monocytes # 0.5 K/mm3 (0.1-1.0); Monocytes % 5.7 % (1.7-9.3); Neutrophils # 4.8 K/mm3 (1.8-7.8); Platelet Count 222 K/mm3 (142-424); Red Blood Count 5.37 M/mm3 (4.20-5.40); White Blood Count 8.5 K/mm3 (4.8-10.8)
[2020-12-14 17:37] LABS: Alanine Aminotransferase 24 U/L (12-78); Albumin Level 4.7 g/dl (3.5-5.0); Alkaline Phosphatase 74 U/L (38-126); Anion Gap 11.7 mEq/L (5-15); Aspartate Amino Transferase 30 U/L (14-36); Bilirubin,Total 0.4 mg/dl (0.2-1.3); Blood Urea Nitrogen 17 mg/dl (7-17); Calcium 10.1 mg/dl (8.4-10.2); Carbon Dioxide 28 mmol/L (22.0-30.0); Chloride 106 mmol/L (98-107); Estimated Glomerular Filt Rate 91 ml/min (>60); GFR (African American) 110 ML/MIN (>60); Globulin 2.3 g/dL (1.3-3.2); Glucose 88 mg/dl (74-100); Potassium 3.7 mmoL/L (3.5-5.1); Sodium 142 mmol/L (136-145)
== END ==
PROVIDERS: PCP Internal Medicine Adolescent Medicine; Visit Provider Nurse Practitioner Family
DX: R00.2 Palpitations (principal); R42 Dizziness and giddiness
CPT/HCPCS: 36415; 80053; 84443; 85025; 93225; 93226

== ENCOUNTER → 2020-12-22 15:00 | Outpatient (CLI) | payer OTHER, SELFPAY | PROVIDERS: PCP Internal Medicine Adolescent Medicine; Visit Provider Nurse Practitioner Family | DX: R42 Dizziness and giddiness (principal); R00.2 Palpitations | CPT/HCPCS: 93306 ==

== ENCOUNTER → 2020-12-29 10:15 | Outpatient (CLI) | payer OTHER, SELFPAY ==
--- NOTE | 2020-12-29 10:17 | US_ITS ---
PROCEDURE: US BREAST RT COMPLETE CLINICAL INDICATION: ABN MAMM COMPARISON: US BL US BREAST-LT COMPLETE W/AXILLA from 07/02/2017 US MAMTL US MAMMOTOME-LT from 08/12/2017 US BREASTLT US breast LT complete from 02/10/2018 US BREASTLT US breast LT complete from 04/16/2019 US US BREAST RT COMPLETE from 04/30/2019 US US BREAST RT COMPLETE from 11/24/2019 MG MM DIG MAMM BI DX W/CAD from 11/24/2019 US US BREAST LT COMPLETE from 12/29/2020 MG MM DIG SCREENING MAMM BI W/CAD from 12/29/2020 FINDINGS: Right breast: 4 mm cyst at 12 o'clock unchanged. At 1 o'clock there is an 8 x 3 mm complex nodule possibly due to a intramammary lymph node not significantly changed. At 4 o'clock there is a complex cyst at 11 x 11 mm. This is increased in size compared to the previous study. At 9 o'clock there is a complicated cyst at 10 x 8 x 0.3 cm not significantly changed. There is a prominent right axillary lymph node at 4 by 1.4 cm. Patient has had recent Covid19 vaccine however it is not specified as the which side the vaccine was on by the technologist. The Left breast ultrasound: 5 mm complicated cyst at 12 o'clock. 14 x 14 x 8 mm hypoechoic nodule at 1 o'clock with posterior acoustical enhancement wider than tall well-circumscribed. This is felt to be in the region that was previously biopsied on 08/12/2017. This nodule was only 9 mm on the previous exam. 5 mm hypoechoic nodule 1 o'clock. 7 mm cyst at 2 o'clock. Clips are present in the left breast. IMPRESSION: BI-RADS category 4 suspicious. Recommend right-sided ultrasound-guided FNA of the complex cyst at 4 o'clock and left-sided ultrasound guided mammotome biopsy of the nodule at 1 o'clock Dictated by: Zeke Valladares MD 01/06/2021 16:43 Zeke Valladares MD in [place] 01/06/2021 16:43
--- NOTE | 2020-12-29 10:17 | MM_ITS ---
PROCEDURE: MM DIG SCREENING MAMM BI W/CAD Digital Breast Tomosynthesis Included CLINICAL INDICATION: ABN MAMM There is a history of breast cancer in the patient's maternal and paternal grandmother and maternal aunts. There has been a previous lumpectomy left breast for benign disease. COMPARISON: MG MM DIG MAMM DX UNILAT RT CAD from 04/30/2019 MG MM CLIP PLACEMENT RT from 05/25/2019 MG MM DIG MAMM BI DX W/CAD from 11/24/2019 TECHNIQUE: Standard CC and MLO images and 3D Tomosynthesis was obtained. R2 CAD reviewed. FINDINGS: Moderate scattered fibroglandular densities are seen in the central portions of both breast. There is a mole marker right breast. There are surgical clips central portion of left breast at the previous lumpectomy site. There is a biopsy clip outer quadrant right breast as well. There is no suspicious lesion in either breast and no suspicious microcalcifications. There is very little postlumpectomy scarring left breast. IMPRESSION: Moderate breast density with no suspicious lesions seen BI-RAD Category: 2 Benign Finding(s) FOLLOW-UP: 1YR 1 Year Follow-up (A letter has been sent to the patient regarding results of the study.) Dictated by: Dr. Preet Morales MD 01/01/2021 07:45 Dr. Preet Morales MD in [place] 01/01/2021 07:45
== END ==
PROVIDERS: PCP Internal Medicine Adolescent Medicine; Visit Provider Nurse Practitioner Family
DX: Z12.31 Encounter for screening mammogram for malignant neoplasm of breast (principal); Z80.3 Family history of malignant neoplasm of breast; N60.12 Diffuse cystic mastopathy of left breast; N60.11 Diffuse cystic mastopathy of right breast
CPT/HCPCS: 76641; 77063; 77067

== ENCOUNTER → 2021-01-30 09:24 | Outpatient (CLI) | payer OTHER, SELFPAY ==
--- NOTE | 2021-01-30 09:31 | US_ITS ---
PROCEDURE: US FNA BREAST CLINICAL INDICATION: ABN MAMM COMPARISON: US US BREAST RT COMPLETE from 12/29/2020 US US BREAST LT COMPLETE from 12/29/2020 FINDINGS: Patient was scheduled for a left breast mammotome biopsy for a complex nodule at 1 o'clock. Following obtaining informed consent and time-out procedure under aseptic conditions and local anesthesia with buffered lidocaine and deeper anesthesia with lidocaine mixed with epinephrine with sonographic guidance a 21 gauge spinal needle was inserted into the nodule. The nodule did nearly completely aspirate. Mammotome biopsy was therefore not performed. FNA performed of the nodule. Cytology: Negative for malignancy. Apical run metaplasia consistent with benign fibrocystic changes. IMPRESSION: FNA performed of complex nodule of the left breast at 1 o'clock demonstrated benign findings. Suggest 6 month mammographic follow-up per routine protocol. Dictated by: Zeke Valladares MD 02/02/2021 09:34 Zeke Valladares MD in [place] 02/02/2021 09:34
--- NOTE | 2021-01-30 09:31 | US_ITS ---
PROCEDURE: US FNA BREAST CLINICAL INDICATION: ABN MAMM Right breast nodule COMPARISON: US US BREAST RT COMPLETE from 12/29/2020 US US FNA BREAST from 01/30/2021 FINDINGS: Ultrasound-guided FNA performed of the complex cyst at 4 o'clock. Following obtaining informed consent and time-out procedure under aseptic conditions and sonographic guidance with local anesthesia with 1 percent buffered lidocaine, 21 gauge needle was inserted into the complex cystic lesion which nearly completely aspirated. Cytology: Negative for malignancy. Apocrine metaplasia consistent with benign fibrocystic changes. IMPRESSION: Uneventful ultrasound-guided FNA of the right breast showing benign findings. Suggest six-month follow-up per routine protocol Dictated by: Zeke Valladares MD 02/02/2021 09:39 Zeke Valladares MD in [place] 02/02/2021 09:39
== END ==
PROVIDERS: PCP Internal Medicine Adolescent Medicine; Visit Provider Nurse Practitioner Family
DX: R92.8 Other abnormal and inconclusive findings on diagnostic imaging of breast (principal); N63.21 Unspecified lump in the left breast, upper outer quadrant; N63.13 Unspecified lump in the right breast, lower outer quadrant
CPT/HCPCS: 10005

== ENCOUNTER → 2021-03-06 09:44 | Outpatient (CLI) | payer OTHER, SELFPAY ==
--- NOTE | 2021-03-06 09:45 | US_ITS ---
PROCEDURE: US FNA LYMPH NODE CLINICAL INDICATION: Enlarged axillary lymph node COMPARISON: No exams were available for comparison FINDINGS: Following obtaining informed consent under aseptic conditions and local anesthesia with 1 percent buffered lidocaine, 21 gauge needle was inserted into the mildly prominent right axillary lymph node with ultrasound guidance 3 times. Specimen was sent for cytology and in RPMI solution. Patient tolerated procedure well without evidence mediate complication and left radiology suite in stable condition Cytology: Negative for malignant cells. IMPRESSION: Uneventful FNA right axillary node showing benign findings Dictated by: Zeke Valladares MD 03/19/2021 13:24 Zeke Valladares MD in [place] 03/19/2021 13:24
== END ==
PROVIDERS: PCP Internal Medicine Adolescent Medicine; Visit Provider Surgery
DX: N60.12 Diffuse cystic mastopathy of left breast (principal); R59.0 Localized enlarged lymph nodes
CPT/HCPCS: 10005

== ENCOUNTER 2021-04-28 12:35 | Emergency (ER) | payer OTHER, SELFPAY ==
[2021-04-28 12:36] VITALS: BP 123/84; PULSE 80; RESP 16; TEMP 36.6; O2SAT 98; BMI 24.4
--- NOTE | 2021-04-28 12:45 | XR_ITS ---
PROCEDURE INFORMATION: Exam: XR Left Foot Exam date and time: 04/28/2021 12:45 PM Age: 45 years old Clinical indication: Injury or trauma; Fall; Puncture; Foot; Left; With foreign body; Additional info: Fb TECHNIQUE: Imaging protocol: XR Left foot. Views: 3 or more views. COMPARISON: CR XR TIBIA FIBULA LT 2V 02/10/2020 8:39 PM FINDINGS: Bones/joints: There is no evidence of acute fracture.There is no evidence of malalignment or dislocation. Soft tissues: Curvilinear metallic foreign body in the soft tissues dorsal to the 1st metatarsal.. IMPRESSION: 1. Curvilinear metallic foreign body in the soft tissues dorsal to the 1st metatarsal.. 2. There is no evidence of acute fracture.There is no evidence of malalignment or dislocation.
[2021-04-28 13:01] VITALS: BP 126/86; PULSE 79; O2SAT 96
[2021-04-28 13:31] VITALS: BP 117/75; PULSE 66; O2SAT 97
--- NOTE | 2021-04-28 13:59 | HMH.EDGENADL ---
ED Disposition Clinical Impression: Foreign body in foot Qualifiers: Encounter type: initial encounter Laterality: left Qualified Code(s): S90.852A - Superficial foreign body, left foot, initial encounter Disposition: Home, Self-Care Condition on Discharge: Good Instructions: DI for Removal of Foreign Body From Skin Additional Instructions: Rest and elevate your foot for 2 days. Follow-up with Dr. Disla for wound check next week. Call Friday. Keflex as prescribed. Tylenol or ibuprofen for pain. Return to the emergency department if increasing pain, swelling, pus drainage, redness or red streaks, or fever. Prescriptions: cephALEXin [cephALEXin 500mg capsule*] 500 mg PO Q6H #28 cap Transmission Status: Received by [facility] Referrals: Matthew Pedersen MD [Primary Care Provider] - Fauzia Disla DPM [Staff Physician] - Forms: Work/School Release - Critical Care Critical Care Time: No Attestation: On 04/28/21, the high probability of a clinically significant, sudden or life threatening deterioration of the following system(s) required my full and direct attention, intervention and personal management. The time I documented below is in addition to time spent performing reported procedures but includes the following listed in this critical care notation. Medical Decision Making - Silverio Inquiry Pt receiving controlled substance: No Vital Signs: 04/28/21 12:36 04/28/21 13:01 04/28/21 13:31 Temperature 97.8 F Temperature Source Oral Pulse Rate 79 66 Pulse Rate [Radial] 80 Respiratory Rate 16 Blood Pressure 126/86 117/75 Blood Pressure [Right Arm] 123/84 Blood Pressure Mean 96 93 Blood Pressure Mean [Right Arm] 97 Blood Pressure Position [Right Arm] Sitting 02 Sat by Pulse Oximetry 98 96 97 Oxygen Delivery Method Room Air Orders (Tests/Meds): ED MEDICATIONS Discontinued Medications Generic Name Dose Route Start Last Admin Trade Name Freq PRN Reason Stop Dose Admin Cephalexin HCl 500 mg 04/28/21 14:16 04/28/21 14:26 Cephalexin 500mg Capsule PO 04/28/21 14:17 500 mg ONCE ONE Administration Tetanus/Reduced Diphtheria/Acell Pertussis 0.5 ml 04/28/21 12:45 04/28/21 12:56 Tet/Diphth/Pert-Adult 0.5ml Syringe IM 04/28/21 12:46 0.5 ml .ONCE ONE Administration ORDERS Category Date Time Status Foot XR left minimum 3 views [XR foot LT min 3V] Stat Exams 04/28/21 14:16 Taken - Radiology Data #1 Image(s): Foot/Toes Image Reviewed: Yes I reviewed the patient's radiology image, Yes I have reviewed radiologist's interpretation PROCEDURE INFORMATION: Exam: XR Left Foot Exam date and time: 04/28/2021 12:45 PM Age: 45 years old Clinical indication: Injury or trauma; Fall; Puncture; Foot; Left; With foreign body; Additional info: Fb TECHNIQUE: Imaging protocol: XR Left foot. Views: 3 or more views. COMPARISON: CR XR TIBIA FIBULA LT 2V 02/10/2020 8:39 PM FINDINGS: Bones/joints: There is no evidence of acute fracture.There is no evidence of malalignment or dislocation. Soft tissues: Curvilinear metallic foreign body in the soft tissues dorsal to the 1st metatarsal.. IMPRESSION: 1. Curvilinear metallic foreign body in the soft tissues dorsal to the 1st metatarsal.. 2. There is no evidence of acute fracture.There is no evidence of malalignment or dislocation. #2 Image(s): Foot/Toes Image Reviewed: Yes I reviewed the patient's radiology image Soft tissue swelling related to local anesthetic injection at site of foreign body. Foreign body has now been removed in its entirety. General Adult HPI - General Chief complaint: PAIN Stated complaint: [id number] wire in left foot,home accident Time Seen by Provider: 04/28/21 13:59 Mode of Arrival: Ambulatory Limitations: No Limitations Description of Symptoms (Recalled from ER [facility]
--- NOTE | 2021-04-28 14:16 | XR_ITS ---
PROCEDURE INFORMATION: Exam: XR Left Foot Exam date and time: 04/28/2021 2:16 PM Age: 45 years old Clinical indication: Other: Fb removal TECHNIQUE: Imaging protocol: XR Left foot. Views: 3 or more views. COMPARISON: CR XR FOOT LT MIN 3V 04/28/2021 1:08 PM FINDINGS: Bones/joints: There is no evidence of acute fracture.There is no evidence of malalignment or dislocation. Soft tissues: The metallic foreign body has been removed IMPRESSION: The metallic foreign body has been removed
[2021-04-28 14:40] VITALS: BP 130/74; PULSE 78; RESP 16; TEMP 36.6; O2SAT 98
--- NOTE | 2021-04-28 14:40 | PC.NURSE ---
DSD APPLIED TO LT FOOT.
== END 2021-04-28 14:42 | disposition home or self-care (01) ==
PROVIDERS: Emergency Provider Emergency Medicine; PCP Internal Medicine Adolescent Medicine
DX: S90.852A Superficial foreign body, left foot, initial encounter (principal); Y93.H2 Activity, gardening and landscaping
CPT/HCPCS: 10120; 73630; 90471; 90715; 99283

== ENCOUNTER → 2021-08-03 13:42 | Outpatient (CLI) | payer OTHER, SELFPAY ==
--- NOTE | 2021-08-03 13:44 | US_ITS ---
PROCEDURE INFORMATION: Exam: US Right Breast, Complete Exam date and time: 08/03/2021 1:44 PM Age: 45 years old Clinical indication: Follow-up for benign right breast biopsies TECHNIQUE: Imaging protocol: Complete ultrasound of all four quadrants of the Right breast and the retroareolar regions, including ultrasound of the axilla when performed. COMPARISON: US FNA BREAST 01/30/2021 10:36 AM FINDINGS: Breast: Sonographic images of the right breast demonstrates scattered benign cystic change ranging in size from 0.3 cm in the outer 12 o'clock axis to 1.1 cm in the right 4 o'clock periareolar region. No solid masses. No architectural distortion or shadowing. No axillary adenopathy. IMPRESSION: No sonographic evidence of malignancy. Annual mammographic screening is recommended unless otherwise clinically indicated. ASSESSMENT: BI-RADS Category 2: Benign
--- NOTE | 2021-08-03 13:44 | MM_ITS ---
PROCEDURE INFORMATION: Exam: MG Bilateral Diagnostic Breast Tomosynthesis Exam date and time: 08/03/2021 1:44 PM Age: 45 years old Clinical indication: Follow-up for bilateral benign breast fine-needle aspirations and including right axillary fine-needle biopsy TECHNIQUE: Imaging protocol: Bilateral Diagnostic tomosynthesis and 2D mammography including computer-aided detection (CAD) when performed. Unilateral or bilateral exam. COMPARISON: 1. MG MM DIG SCREENING MAMM BI W/CAD 12/29/2020 10:19 AM 2. MG MM DIG MAMM BI DX W/CAD 11/24/2019 2:40 PM FINDINGS: MAMMOGRAPHY: The breast tissue is heterogeneously dense, which may obscure small masses. There is no stellate mass, architectural distortion or suspicious microcalcifications in either breast to suggest malignancy. No skin thickening or axillary adenopathy. IMPRESSION: No mammographic evidence of malignancy. Annual bilateral mammographic screening is recommended unless otherwise clinically indicated. ASSESSMENT: BI-RADS Category 1: Negative
== END ==
PROVIDERS: PCP Internal Medicine Adolescent Medicine; Referring Provider Surgery; Visit Provider Internal Medicine Adolescent Medicine
DX: R92.8 Other abnormal and inconclusive findings on diagnostic imaging of breast (principal)
CPT/HCPCS: 76641; 77062; 77066; G0279

== ENCOUNTER → 2021-11-27 10:18 | Outpatient (CLI) | payer OTHER, SELFPAY ==
--- NOTE | 2021-11-27 10:29 | CT_ITS ---
FINAL REPORT CLINICAL HISTORY: NEPHROLITHIASIS bilateral flank pain COMPARISON: October 04, 2019 FINDINGS: Axial CT images of the abdomen and pelvis were obtained without intravenous contrast. Coronal reformatted images were also obtained.This study was performed with techniques to keep radiation doses as low as reasonably achievable (ALARA). Individualized dose reduction techniques using automated exposure control or adjustment of mA and/or kV according to the patient's size were employed. Abdomen: There is mild bibasilar atelectasis or scarring. There is a pneumatocele in the left lung base which is stable. There is no evidence of renal stone or hydronephrosis. There are bilateral renal masses present which cannot be accurately characterized without contrast. Mass in the lateral aspect of the left kidney measures 11 mm and was previously 8 mm. This does not appear to be a simple cyst and could represent a complex cyst. A second mass posterior to this measures 9 mm and was 4 mm. This also does not appear to be a simple cyst. A dominant left renal mass measures 35 mm and was 29 mm with a questionable septation. The gallbladder is present. The liver, spleen and pancreas have an unremarkable, unenhanced appearance. No mass or adenopathy is seen. No inflammatory process is identified. There are mild vascular calcifications. Pelvis: Images of the pelvis reveal no evidence of ureteral dilation or ureteral stone. The appendix is normal. No mass or abnormal fluid collection is identified. There are multiple phleboliths in the lower pelvis. IMPRESSION: No renal or ureteral stone, or hydronephrosis. Multiple renal masses which cannot be accurately characterized but some do not appear to be simple cysts. Could be further evaluated with renal mass protocol CT. Reviewed, Interpreted and Dictated by Mak Lovelace III, MD Transcribed by Marie Watt Authenticated by Mak Lovelace III, MD on 11/27/2021 01:03:09 PM [facility]
== END ==
PROVIDERS: PCP Internal Medicine Adolescent Medicine; Visit Provider Internal Medicine Adolescent Medicine
DX: N20.0 Calculus of kidney (principal)
CPT/HCPCS: 74176

== ENCOUNTER → 2021-12-04 07:19 | Outpatient (CLI) | payer OTHER, SELFPAY ==
--- NOTE | 2021-12-04 07:23 | CT_ITS ---
FINAL REPORT TECHNIQUE: The patient was injected with 75 cc of isovue 370 and saline flush Axial images were obtained from the lung base to the iliac crest by computed tomography. This study was performed with techniques to keep radiation doses as low as reasonably achievable (ALARA). Individualized dose reduction techniques using automated exposure control or adjustment of mA and/or kV according to the patient's size were employed. CLINICAL HISTORY: NEPHROLITHASIS...renal mass protocol 75 cc of isovue 370 and saline flush COMPARISON: November 27, 2021 FINDINGS: CT ABDOMEN: ABDOMEN: This study was performed to better characterize the previously noted presumed complex renal cysts. The mass in the lateral aspect of the left kidney represents a mean attenuation value 50 Hounsfield units on the pre infusion images, 61 Hounsfield units on the on the dynamic images and 64 Hounsfield units on the delayed images. These findings are favored to be related to a complex benign cyst. A mass posterior to this has a mean attenuation value of 22 Hounsfield units on the dynamic phase images, 5 Hounsfield units on the delayed images and 14 Hounsfield units on the pre infusion images which is probably due to a benign complex cyst. Due to the small size, density measurements are likely not reliable. The dominant focus which is well circumscribed on the post infusion images has a mean attenuation value of 14 Hounsfield units is consistent with a complex benign cyst. IMPRESSION: Multiple presumed complex benign cysts. Due to small size some are difficult to characterize. For this reason, a follow-up pre and post infusion CT scan in 6 months is recommended. Reviewed, Interpreted and Dictated by Abimael Hess MD Transcribed by Marie Watt Authenticated by Abimael Hess MD on 12/04/2021 11:26:24 AM [facility]
== END ==
PROVIDERS: PCP Internal Medicine Adolescent Medicine; Visit Provider Internal Medicine Adolescent Medicine
DX: N20.0 Calculus of kidney (principal)
CPT/HCPCS: 74160; Q9967

== ENCOUNTER → 2021-12-26 12:41 | Outpatient (CLI) | payer OTHER, SELFPAY ==
[2021-12-26 13:48] LABS: Urine Pregnancy, HCG Qual. Negative (Negative)
== END ==
PROVIDERS: Visit Provider Urology
DX: Z01.812 Encounter for preprocedural laboratory examination (principal); Z11.52 Encounter for screening for COVID-19; R31.9 Hematuria, unspecified
CPT/HCPCS: 81025; C9803; U0003; U0005

== ENCOUNTER 2021-12-28 10:26 | Day surgery (SDC) | payer OTHER, SELFPAY ==
[2021-12-26 10:44] VITALS: BMI 23.6
[2021-12-28 10:41] VITALS: BP 167/103; PULSE 76; RESP 16; TEMP 36.3; O2SAT 96
[2021-12-28 12:05] VITALS: BP 177/114; PULSE 74; RESP 16; TEMP 36.2; O2SAT 98
[2021-12-28 12:15] VITALS: BP 162/107; PULSE 76; RESP 16; TEMP 36.2; O2SAT 98
--- NOTE | 2021-12-28 14:07 | P.OP_ITS ---
Date of procedure: 12/28/21 Pre-op Diagnosis:: Gross hematuria Post-op Diagnosis:: Urethral stenosis Procedure performed:: Cystoscopy with urethral dilation Surgeon:: Ari Thompson MD Anesthesia: local Estimated blood loss (mL): 0 Clinical Note:: 46-year-old white female with gross hematuria in her urine about once a day. She states associated difficulty voiding and states she has to strain to void. Previous CT scan has shown no evidence of stones. She does have a couple of complex cyst which we are going to monitor. Operative findings:: Bladder was within normal limits but patient had a significant urethral stenosis that was dilated. Operative note:: Patient taken to the cystoscopy suite after informed consent was obtained. On the stretcher she was placed in the frog-leg position and prepped and draped in standard surgical fashion and 2% lidocaine placed into the urethra. After 5 minutes the flexible cystoscope passed into the urethral meatus and there was some resistance in passing the scope into the bladder. The bladder was examined in a systematic fashion. There is no evidence of stones, diverticula, trabeculation or cellules. The ureteral orifices in their normal anatomic position with clear efflux of urine. Scope was retroflexed and the bladder neck appeared normal. The scope then removed and we discussed the urethral stenosis with the patient. I discussed that urethral stenosis was the likely cause of her urinary difficulty and the blood in the urine. She agreed to dilation and urethra was dilated with a 22, 24 and 26 Slovenian sounds. There was significant resistance to the passage of the sounds. Patient tolerated well however. Discharged to recovery in stable condition. Condition: stable Disposition: same day Specimens:: None Complications:: None
== END 2021-12-28 12:15 | disposition home or self-care (01) ==
LOC: OUTP 10:26
PROVIDERS: PCP Internal Medicine Adolescent Medicine; Visit Provider Urology
PROC: (CPT 52281; principal; 2021-12-28 12:00)
DX: R31.0 Gross hematuria (principal); N35.92 Unspecified urethral stricture, female; I10 Essential (primary) hypertension; Z85.9 Personal history of malignant neoplasm, unspecified; Z87.442 Personal history of urinary calculi; Z79.899 Other long term (current) drug therapy
CPT/HCPCS: 52281

== ENCOUNTER 2021-12-30 17:31 | Emergency (ER) | payer OTHER, SELFPAY ==
[2021-12-30 17:40] VITALS: BP 200/109; PULSE 94; RESP 19; TEMP 36.8; O2SAT 97; BMI 26.0
--- NOTE | 2021-12-30 18:04 | HMH.EDUTC ---
[facility] [place] Clinical Impression: Upper respiratory infection, viral Disposition: Home, Self-Care Condition on Discharge: Good Instructions: DI for Viral Upper Respiratory Infection -- Adult Additional Instructions: No sign of a bacterial infection. Likely viral. Viruses can take 7-14 days to run their course. Nasal saline and bulb syringe or nose Esperanza to remove nasal drainage to help with nasal congestion. Hard to eat, drink, sleep with nasal congestion so important to keep this cleaned out. Monitor temp. Tylenol or Motrin as needed for pain or fever Encourage fluids, water, Gatorade, Powerade, Pedialyte if /toddler/child Warm salt water gargles Warm fluids Sore throat lozenges Sleep elevated Humidifier/vaporizer Follow-up immediately for new or worsening symptoms or no noticeable improvement over the next 48-72 hours. Prescriptions: Benzonatate [Benzonatate 100mg cap] 100 mg PO BID PRN 6 Days #12 cap PRN Reason: Cough Transmission Status: Received by [facility] Referrals: Matthew Pedersen MD [Primary Care Provider] - Forms: Work/School Release Time of Disposition: 18:32 Medical Decision Making - Silverio Inquiry Pt receiving controlled substance: No Vital Signs: 12/30/21 17:40 Temperature 98.3 F Temperature Source Oral Pulse Rate [Right] 94 H Respiratory Rate 19 Blood Pressure [Right Arm] 200/109 H Blood Pressure Mean [Right Arm] 139 Blood Pressure Source [Right Arm] Automatic Cuff Blood Pressure Position [Right Arm] Sitting 02 Sat by Pulse Oximetry 97 Oxygen Delivery Method Room Air - Lab Data Lab Results 12/30/21 17:54: Influenza Type A Ag Negative, Influenza Type B Ag Negative [facility] H[place] - General Chief complaint: [facility] Stated complaint: cough congestion MACDONALD runny nose Time Seen by Provider: 12/30/21 18:05 Mode of Arrival: Ambulatory Source of Information: Patient Limitations: No Limitations Description of Symptoms (Recalled from Triage Doc. by RN): PATIENT C/O COUGH AND CONGESTION X 2 DAYS HEENT Symptoms (Recalled from RN notes): Yes Resp Symptoms (Recalled from RN notes): Yes Skin Symptoms (Recalled from RN notes): No MS Symptoms (Recalled from RN notes): No Functional Status (Recalled from RN notes): WNL - History of Present Illness Provider Complaint: 46yr old female presents for cough,macdonald, nasal congestion and sore throat for 2 days - Related Data Home Medications Medication Instructions Recorded Confirmed cetirizine 10 mg tablet 10 mg PO DAILY tab 02/15/21 12/28/21 metoprolol succinate 50 mg 50 mg PO DAILY tab 02/15/21 12/28/21 tablet,extended release 24 hr omeprazole 40 mg capsule,delayed 40 mg PO DAILY cap 02/15/21 12/28/21 release lisinopril 40 mg tablet 40 mg PO DAILY tab 03/14/21 12/28/21 Previous Rx's Medication Instructions Recorded Benzonatate [Benzonatate 100mg 100 mg PO BID PRN 6 Days #12 cap 12/30/21 cap] Allergies Allergy/AdvReac Type Severity Reaction Status Date / Time hydromorphone Allergy Severe S-DIFF. Verified 12/28/21 10:40 BREATHING propoxyphene Allergy Intermediate SHORTNESS Verified 12/28/21 10:40 [From [facility]] OF BREATH - Worker's Comp Is this a Worker's Comp case?: No [facility] [place] History - Hepatitis A Screen Drug use history?: No High risk sexual behaviors?: No History of sexually transmitted infection?: No Currently employed?: No Childcare worker?: No Do you have indoor plumbing?: Yes Do you have electricity?: Yes Attestation statement:: This patient has been screened for Hepatitis A risk factors. I have reviewed the patient's past medical history: Yes Medical History: Reports:: Cancer (breast ca), Hypertension, Kidney Stones Denies:: Diabetes Mellitus Type 1, Diabetes Mellitus Type 2, Internal Pacemaker, MRSA, Seizures Other Medical History: Reports: Blood Transfusion Reaction, Hormone Therapy, Thyroid Disease, Other Comment: Migraines, renal cysts
[2021-12-30 18:18] LABS: UTC Influenza A Antigen Negative (Negative); UTC Influenza B Antigen Negative (Negative)
[2021-12-30 18:33] VITALS: BP 200/109; PULSE 94; RESP 19; TEMP 36.8; O2SAT 97
== END 2021-12-30 18:37 | disposition home or self-care (01) ==
PROVIDERS: Emergency Provider Nurse Practitioner Family; PCP Internal Medicine Adolescent Medicine
DX: J06.9 Acute upper respiratory infection, unspecified (principal); I10 Essential (primary) hypertension; N28.1 Cyst of kidney, acquired; G43.909 Migraine, unspecified, not intractable, without status migrainosus; F17.210 Nicotine dependence, cigarettes, uncomplicated; Z79.899 Other long term (current) drug therapy; Z88.5 Allergy status to narcotic agent; Z88.6 Allergy status to analgesic agent; Z88.8 Allergy status to other drugs, medicaments and biological substances; Z87.442 Personal history of urinary calculi; Z85.3 Personal history of malignant neoplasm of breast; Z82.49 Family history of ischemic heart disease and other diseases of the circulatory system
CPT/HCPCS: 87804; 99213; G0463

== ENCOUNTER → 2022-02-04 13:45 | Outpatient (CLI) | payer OTHER, SELFPAY ==
--- NOTE | 2022-02-04 13:45 | MM_ITS ---
PROCEDURE INFORMATION: Exam: MG Bilateral Diagnostic Breast Tomosynthesis Exam date and time: 02/04/2022 1:53 PM Age: 46 years old Clinical indication: Screening. Family history of maternal and paternal grandmothers as well as maternal aunts with breast cancer. History of benign left excisional biopsy. TECHNIQUE: Imaging protocol: Bilateral Diagnostic tomosynthesis and 2D mammography including computer-aided detection (CAD) when performed. Unilateral or bilateral exam. COMPARISON: 1. MG MM DIG MAMM BI DX W/CAD 08/03/2021 1:49 PM 2. MG MM DIG SCREENING MAMM BI W/CAD 12/29/2020 10:19 AM 3. MG MM DIG MAMM BI DX W/CAD 11/24/2019 2:40 PM 4. MG MM CLIP PLACEMENT RT 05/25/2019 11:49 AM FINDINGS: MAMMOGRAPHY: Breast composition: The breasts are heterogeneously dense, which may obscure small masses. Mass: None. Architectural distortion: None. Calcifications: No suspicious calcifications. Asymmetric density: None. Skin thickening: None. Axillary adenopathy: None. Other: Left surgical clips and bilateral biopsy clips. IMPRESSION: No mammographic evidence of malignancy. ASSESSMENT: Assessment: BI-RADS Category 2: Benign
== END ==
PROVIDERS: PCP Internal Medicine Adolescent Medicine; Visit Provider Surgery
DX: N60.01 Solitary cyst of right breast (principal)
CPT/HCPCS: 77062; 77066; G0279

== ENCOUNTER 2022-11-20 09:41 | Day surgery (SDC) | payer OTHER, SELFPAY ==
[2022-10-28 13:27] VITALS: BMI 24.3
[2022-11-20 10:33] VITALS: BP 152/93; PULSE 82; RESP 18; TEMP 36.2; O2SAT 99
--- NOTE | 2022-11-20 10:53 | P.PN_ITS ---
[facility] Disclaimer: The information contained in this section may have been updated after the patient was seen, as this information can be updated by other users. Medical History History of gastroesophageal reflux (GERD) Kidney stone Surgical History History of section History of hysterectomy S/P breast lumpectomy Family History Other Family history of cancer Family history of hypertension Family history of myocardial infarction Family history of stroke Social History Smoking Status: Current every day smoker tobacco type: cigarettes packs per day: 1 second hand exposure: No alcohol intake: never substance use type: denies use current occupational status: employed Travel in the last 8 weeks: None household members: spouse housing: house lives independently: Yes marital status: education level: high school current occupational exposures/hazards: Yes caffeine: Yes special braxton needs: No agree to transfusion: No do you feel safe at home: Yes victim of physical abuse: No victim of emotional abuse: No victim of sexual abuse: No would you like helpful sources: No [facility] Anesthesia Checklist Patient Identification Patient Identification: Arm Band and Verbal (Name & ) Structural Data Admitted From: Home Planned Operative Procedure/s: Colonoscopy Consent for Planned Operative Procedure(s) Verified: Yes NPO Status Verified Time NPO: 00:00 Additional verifications Anesthesia Reactions: No Hx Blood Transfusions: Yes (w/ surgery) Blood Transfusion Reaction: Yes Airway Assessment C-Spine Mobility Assessed: Yes TMJ Mobility Assessed: Yes Dentition: Good Dentition Neurological Assessment Level of Consciousness: Awake Hx Seizures: No Numbness or tingling in extremities: No Anesthesia Plan Anesthesia Risk discussed: Yes Anesthesia Plan: Verified ASA Class: II Anesthesia Type: MAC
[2022-11-20 11:02] VITALS: O2SAT 99
--- NOTE | 2022-11-20 11:28 | HMH.SCOPE ---
Procedure: Date: 11/20/22 Patient Date of :: 1975 Procedure Performed:: Colonoscopy Indications:: Positive cologuard test Performing Provider:: Jovanny Salazar MD Referring Provider:: Matthew Pedersen MD Sedation:: See RN records Procedure:: After placing the patient in the left lateral decubitus position, the colonoscopy was gently inserted into the rectum and under direct visualization advanced to the cecum which was identified by transillumination in the right lower quadrant, identification of the ileocecal valve, appendiceal orifice, and cecal strap. Color, texture, mucosa, and anatomy of the colon were carefully examined with the scope. Findings:: Anal canal: normal Rectum: internal hemorhoids Sigmoid colon: Polyp 5 mm in size. removed with hot snare polypectomy. fair preparation Descending colon: fair preparation Splenic flexure: fair preparation Transverse colon: normal without polyps or inflammatory changes Hepatic flexure: normal Ascending colon: normal without polyps or inflammatory changes Cecum: normal Terminal ileum: not visualized Impression: Polyp of sigmoid colon Fair bowel preparation Tortuous sigmoid colon Recommendations:: Await pathology results Repeat colonoscopy in 3 years Complications:: None Estimated blood obtained (mL): 0
[2022-11-20 11:31] VITALS: BP 112/73; PULSE 85; RESP 18; TEMP 36.2; O2SAT 93
[2022-11-20 11:41] VITALS: BP 97/63; PULSE 76; RESP 16; O2SAT 93
[2022-11-20 11:51] VITALS: BP 129/73; PULSE 87; RESP 18; O2SAT 94
[2022-11-20 12:01] VITALS: BP 138/73; PULSE 69; RESP 18; O2SAT 96
== END 2022-11-20 12:10 | disposition home or self-care (01) ==
PROVIDERS: PCP Internal Medicine Adolescent Medicine; Visit Provider Internal Medicine
PROC: 0DJD8ZZ Inspection of Lower Intestinal Tract, Via Natural or Artificial Opening Endoscopic (ICD-10-PCS; CPT 45378; principal; 2022-11-20 11:00)
DX: R19.5 Other fecal abnormalities (principal); D12.4 Benign neoplasm of descending colon; F17.210 Nicotine dependence, cigarettes, uncomplicated
CPT/HCPCS: 45385; J2704

== ENCOUNTER → 2023-02-28 08:53 | Outpatient (CLI) | payer OTHER, SELFPAY ==
--- NOTE | 2023-02-28 08:54 | CA_ITS ---
FINAL REPORT TECHNIQUE: Grayscale, color Doppler and duplex Doppler ultrasound of the kidneys, aorta and renal arteries was performed. Multiple velocities were measured. CLINICAL HISTORY: HTN,SMOKER COMPARISON: None FINDINGS: Aorta velocity: 85 cm/sec Right kidney: 12.1 cm. No evidence of hydronephrosis or mass. Right intrarenal RI: 0.44-0.58 Right renal artery velocity: 134 cm/sec. Right RAR (Renal artery-Aortic Ratio): 1.59 Left Kidney: 13.3 cm. Cyst in the left kidney measures up to 4 cm. Left intrarenal RI: 0.38-0.51 Left renal artery velocity: 119 cm/sec. Left RAR (Renal Artery-Aortic Ratio): 1.41 IMPRESSION: No evidence of significant renal artery stenosis. CT angiogram or postcontrast MR angiogram would be more sensitive for evaluation of possible renal artery stenosis. Reviewed, Interpreted and Dictated by Mak Lovelace III, MD Transcribed by Mindi Wheat Authenticated and [facility]
== END ==
PROVIDERS: PCP Internal Medicine Adolescent Medicine; Visit Provider Internal Medicine Adolescent Medicine
DX: I10 Essential (primary) hypertension (principal)
CPT/HCPCS: 93976

== ENCOUNTER → 2023-03-21 11:36 | Outpatient (CLI) | payer OTHER, SELFPAY ==
[2023-03-21 11:46] LABS: Microscopic, Urine URINE MICROSCOPIC (MICROSCOPIC)
[2023-03-21 12:05] LABS: Hematocrit 43.9 % (37.0-47.0); Hemoglobin 14.5 g/dL (12.2-16.2); Mean Corpuscular HGB Conc 33.1 g/dL (31.8-35.4); Mean Corpuscular Hemoglobin 29.2 pg (27.0-31.2); Mean Corpuscular Volume 88.3 fl (81-99); Platelet Count 237 K/mm3 (142-424); Red Blood Count 4.97 M/mm3 (4.20-5.40); Red Cell Distribution Width 13.5 % (11.5-17.5); White Blood Count 8.9 K/mm3 (4.8-10.8)
[2023-03-21 12:31] LABS: Appearance,Urine CLEAR (Clear); Bilirubin,Urine Negative (Negative); Blood, Urine 2+ (Negative); Color,Urine YELLOW (Yellow); Glucose,Urine (UA) Negative (Negative); Ketones,Urine Negative (Negative); Leukocyte Esterase,Urine Negative (Negative); Nitrate,Urine Negative (Negative); Protein,Urine Negative (Negative); Specific Gravity, Urine >= 1.030 (1.005-1.030)
[2023-03-21 12:38] LABS: Albumin Level 4.4 g/dl (3.5-5.0); Anion Gap 13.6 mEq/L (5-15); Blood Urea Nitrogen 18 mg/dl (7-17); Carbon Dioxide 23 mmol/L (22.0-30.0); Chloride 109 mmol/L (98-107); Estimated Glomerular Filt Rate 108 ml/min (>60); GFR (African American) 130 ML/MIN (>60); Glucose 84 mg/dl (74-100); Potassium 3.6 mmoL/L (3.5-5.1); Sodium 142 mmol/L (136-145)
[2023-03-21 12:45] LABS: Bacteria,Urine 2+ /lpf
[2023-03-21 12:50] LABS: Intact Parathyroid Hormone 97.1 pg/mL (7.5-53.5)
[2023-03-21 12:53] LABS: Creatinine,Urine Random 145 mg/dL (Not Estab.)
[2023-03-21 13:02] LABS: 25-OH Vitamin D, Total < 12.8 ng/mL (30-100)
== END ==
PROVIDERS: PCP Internal Medicine Adolescent Medicine; Visit Provider Internal Medicine Nephrology
DX: I10 Essential (primary) hypertension (principal); E55.9 Vitamin D deficiency, unspecified
CPT/HCPCS: 36415; 80069; 81001; 82088; 82306; 82570; 83970; 84155; 84244; 85014; 85018; 85048; 85049; 87086

== ENCOUNTER → 2023-04-02 08:14 | Outpatient (CLI) | payer OTHER, SELFPAY ==
--- NOTE | 2023-04-02 08:18 | US_ITS ---
FINAL REPORT TECHNIQUE: Sonographic images of the right upper quadrant were obtained. CLINICAL HISTORY: RIGHT UPPER QUAD PAIN FINDINGS: PANCREAS: Unremarkable. LIVER: Homogeneous. No focal hepatic lesion. No intrahepatic biliary ductal dilatation. GALLBLADDER: There are echogenic foci in the gallbladder, some along the non dependent wall which may represent polyps. Nonshadowing stones are identified. No pericholecystic fluid. COMMON DUCT: 3 mm. Normal for age. RIGHT KIDNEY: The right kidney measures 11.8 cm. There is no hydronephrosis, mass, or stone. FREE FLUID: None. IMPRESSION: Gallstones and possible gallbladder polyps. Reviewed, Interpreted and Dictated by Rissa Wood MD Transcribed by Amaris Gaytan Authenticated and [facility]
== END ==
PROVIDERS: PCP Internal Medicine Adolescent Medicine; Visit Provider Internal Medicine Adolescent Medicine
DX: R10.11 Right upper quadrant pain (principal)
CPT/HCPCS: 76705

== ENCOUNTER → 2023-04-09 13:16 | Outpatient (CLI) | payer OTHER, SELFPAY ==
[2023-04-09 13:38] LABS: Basophils # 0.1 K/mm3 (0-0.2); Basophils % 0.7 % (0.1-2.0); Eosinophils # 0.2 K/mm3 (0.0-0.4); Eosinophils % 2.9 % (0.1-12.0); Hematocrit 47.1 % (37.0-47.0); Hemoglobin 14.9 g/dL (12.2-16.2); Lymphocytes # 3.6 K/mm3 (0.7-4.5); Mean Corpuscular HGB Conc 31.7 g/dL (31.8-35.4); Mean Corpuscular Volume 91.5 fl (81-99); Monocytes # 0.5 K/mm3 (0.1-1.0); Monocytes % 6.6 % (1.7-9.3); Neutrophils # 3.7 K/mm3 (1.8-7.8); Neutrophils % 45.9 % (37.0-80.0); Platelet Count 225 K/mm3 (142-424); Red Blood Count 5.15 M/mm3 (4.20-5.40); Red Cell Distribution Width 13.3 % (11.5-17.5); White Blood Count 8.1 K/mm3 (4.8-10.8)
[2023-04-09 14:16] LABS: Chloride 106 mmol/L (98-107); Potassium 3.6 mmoL/L (3.5-5.1); Sodium 142 mmol/L (136-145)
[2023-04-09 14:19] LABS: Blood Urea Nitrogen 15 mg/dl (7-17); Estimated Glomerular Filt Rate 108 ml/min (>60); GFR (African American) 130 ML/MIN (>60)
[2023-04-09 14:20] LABS: Anion Gap 9.6 mEq/L (5-15); Calcium 9.7 mg/dl (8.4-10.2); Carbon Dioxide 30 mmol/L (22.0-30.0); Glucose 104 mg/dl (74-100)
== END ==
PROVIDERS: PCP Internal Medicine Adolescent Medicine; Visit Provider Surgery
DX: Z01.812 Encounter for preprocedural laboratory examination (principal); K80.10 Calculus of gallbladder with chronic cholecystitis without obstruction
CPT/HCPCS: 36415; 80048; 85025

== ENCOUNTER 2023-04-10 07:53 | Day surgery (SDC) | payer OTHER, SELFPAY ==
[2023-04-09 13:01] VITALS: BMI 25.0
[2023-04-10] VITALS (9 sets, daily range): BP systolic 123–170; BP diastolic 71–100; PULSE 50–85; RESP 12–18; TEMP 36.3–43; O2SAT 95–100
--- NOTE | 2023-04-10 08:52 | EXP.ANES.CKL ---
[facility] Disclaimer: The information contained in this section may have been updated after the patient was seen, as this information can be updated by other users. Medical History History of gastroesophageal reflux (GERD) HTN (hypertension) Kidney stone Surgical History History of section History of hysterectomy S/P breast lumpectomy Family History Other Family history of cancer Family history of diabetes mellitus Family history of hypertension Family history of myocardial infarction Family history of stroke Social History Smoking Status: Current every day smoker tobacco type: cigarettes packs per day: 1 second hand exposure: No alcohol intake: never substance use type: denies use current occupational status: employed Travel in the last 8 weeks: None household members: spouse housing: house lives independently: Yes marital status: education level: high school current occupational exposures/hazards: Yes caffeine: Yes special braxton needs: No agree to transfusion: No do you feel safe at home: Yes victim of physical abuse: No victim of emotional abuse: No victim of sexual abuse: No would you like helpful sources: No [facility] Anesthesia Checklist Patient Identification Patient Identification: Arm Band Structural Data Admitted From: Home Planned Operative Procedure/s: Laparoscopic Cholecystectomy Consent for Planned Operative Procedure(s) Verified: Yes Verified Documents: Surgical Consent NPO Status Verified Time NPO: 00:00 Additional verifications Anesthesia Reactions: No Hx Blood Transfusions: Yes Blood Transfusion Reaction: No Airway Assessment C-Spine Mobility Assessed: Yes TMJ Mobility Assessed: Yes Dentition: Good Dentition Neurological Assessment Level of Consciousness: Awake and Alert Anesthesia Plan Anesthesia Risk discussed: Yes Anesthesia Plan: Verified ASA Class: II Anesthesia Type: General
--- NOTE | 2023-04-10 10:19 | P.OP_ITS ---
Date of procedure: 04/10/23 Pre-op Diagnosis:: Chronic calculus cholecystitis Post-op Diagnosis:: Same Procedure performed:: Laparoscopic cholecystectomy Surgeon:: Ty Craig MD WALL AND FLOOR TILER:: Lemuel Wang Anesthesia: GETA Estimated blood loss (mL): 15 Operative findings:: Distended gallbladder Infundibular thickening Operative note:: After informed consent was obtained, the patient was taken to the operating room and placed in the supine position. General anesthesia was induced and the abdomen was prepped and draped in a sterile fashion. After infiltration with local anesthetic an infraumbilical incision was made. A Veress needle was placed in position. The abdomen was insufflated. A 5 mm optical trocar was placed in position. Under direct visualization, a 12 mm trocar was placed in the subxiphoid position and 2 additional 5 mm trocars were placed in the right upper quadrant. The gallbladder was elevated up and over the liver margin. The tissue around the cystic duct was carefully dissected. 3 clips were placed proximally and the duct was transected with harmonic angela. Harmonic angela were then utilized to dissect the gallbladder away from the liver margin with careful attention to the control of the cystic artery. The gallbladder was placed in a retrieval bag and removed through the subxiphoid trocar site. The right upper quadrant was thoroughly irrigated. No active bleeding or bile leak was noted. Fascia at the subxiphoid trocar site was reapproximated utilizing the NeoClose device. The remaining trocars were removed. All wounds were irrigated and skin was closed with 4-0 Monocryl in a mattress fashion to facilitate hemostasis. Dressings were applied. The patient's anesthetic agents were reversed and extubation was completed prior to transfer to recovery in stable condition. Condition: stable Disposition: PACU Specimens:: Gallbladder and contents Complications:: No immediate
--- NOTE | 2023-04-10 10:31 | EXP.ANES.I ---
[facility] Anesthesia Record Part I Anesthesia Record I Intake, IV Amount: 1,600 Estimated blood loss (mL): 0 Urine output (mL): 0 Blood Pressure: 170/100 SaO2: 95 Pulse Rate: 85 Respiratory Rate: 12 Temperature: 97.5 F Patient is:: Awake and Stable Stable to PACU at:: 10:30
--- NOTE | 2023-04-11 16:59 | P.PNANES_ITS ---
[facility] Anesthesia Record Part II Anesthesia Record Part II Discharge Time: 11:00 Destination: Surgical Day Care (OP Surgery) PACU nurse assessment reviewed?: Yes Patient Condition:: Good Anesthesia Complications:: None Swallowing reflex intact?: Yes Cyanosis?: No Blood Pressure: 160/79 Pulse Rate: 84 Temperature: 97.5 F Mental Status: Alert & Oriented Pain level:: 5 Nausea and/or vomitting:: None Intake, IV Amount: 0
[2023-04-11 17:01] VITALS: BP 160/79; PULSE 84; TEMP 36.4
== END 2023-04-10 11:30 | disposition home or self-care (01) ==
PROVIDERS: PCP Internal Medicine Adolescent Medicine; Visit Provider Surgery
PROC: 0FT44ZZ Resection of Gallbladder, Percutaneous Endoscopic Approach (ICD-10-PCS; CPT 47562; principal; 2023-04-10 09:45)
DX: K81.1 Chronic cholecystitis (principal)
CPT/HCPCS: 47562; 96374; J2405

== ENCOUNTER → 2023-04-21 08:03 | Outpatient (CLI) | payer OTHER, SELFPAY ==
[2023-04-21 09:35] LABS: Albumin Level 4.2 g/dl (3.5-5.0); Anion Gap 12.3 mEq/L (5-15); Blood Urea Nitrogen 19 mg/dl (7-17); Calcium 9.7 mg/dl (8.4-10.2); Carbon Dioxide 25 mmol/L (22.0-30.0); Chloride 108 mmol/L (98-107); Estimated Glomerular Filt Rate 108 ml/min (>60); GFR (African American) 130 ML/MIN (>60); Glucose 87 mg/dl (74-100); Phosphorous 3.9 mg/dl (2.5-4.5); Potassium 4.3 mmoL/L (3.5-5.1); Sodium 141 mmol/L (136-145)
== END ==
PROVIDERS: PCP Internal Medicine Adolescent Medicine; Visit Provider Internal Medicine Nephrology
DX: I10 Essential (primary) hypertension (principal)
CPT/HCPCS: 36415; 80069

== ENCOUNTER 2023-12-04 08:19 | Emergency (ER) | payer SELFPAY ==
[2023-12-04 08:30] VITALS: BP 200/113; PULSE 74; RESP 20; TEMP 36.6; O2SAT 100; BMI 22.3
--- NOTE | 2023-12-04 08:30 | XR_ITS ---
FINAL REPORT CLINICAL HISTORY: injury to middle finger FINDINGS: LEFT HAND Three views demonstrate no acute fracture or dislocation. There is a chronic calcification at the fourth PIP joint. The visualized joint spaces are normally aligned. The soft tissues are unremarkable. IMPRESSION: No acute process. Reviewed, Interpreted and Dictated by Mak Lovelace III, MD Transcribed by Kadie Young Authenticated and [facility]
--- NOTE | 2023-12-04 09:04 | ED_ITS ---
Discharge Plan Disposition Patient Disposition: Home, Self-Care Condition: Good Prescriptions Prescriptions: No Action clonidine HCl 0.1 mg tablet 0.1 mg PO BID chlorthalidone 25 mg tablet 25 mg PO BID Patient Comments: TAKE ONE TABLET BY MOUTH EVERY DAY amlodipine 10 mg tablet 10 mg PO BID ergocalciferol (vitamin D2) 1,250 mcg (50,000 unit) capsule 1,250 mcg PO WEEKLY Patient Comments: TAKE ONE CAPSULE BY MOUTH ONCE WEEKLY spironolactone 25 mg tablet 25 mg PO metoprolol succinate 50 mg tablet extended release 24 hr 50 mg PO DAILY Patient Comments: TAKE ONE TABLET BY MOUTH EVERY DAY cetirizine 10 mg tablet 10 mg PO DAILY Patient Comments: TAKE ONE TABLET BY MOUTH EVERY DAY omeprazole 40 mg capsule,delayed release(DR/EC) 40 mg PO DAILY Patient Comments: TAKE ONE CAPSULE BY MOUTH EVERY DAY lisinopril 40 mg tablet 40 mg PO DAILY bisoprolol-hydrochlorothiazide 10-6.25 mg tablet 1 tab PO BID benzonatate 100 MG capsule 100 mg PO BID PRN (Reason: .) hydrocodone-acetaminophen 5-325 mg tablet 1 tab PO Q6H PRN (Reason: post-op pain) Qty: 17 0RF Rx Instructions: The patient states that she has taken hydrocodone/acetaminophen historically without negative consequence. Referrals Follow up/Referrals: Matthew Pedersen MD [Primary Care Provider] - See instructions Activity Restrictions/Add. Instructions Additional Instructions/Restrictions: *RICE, Rest the extremity, Ice 15-20 minutes 3-4 times daily, Compress- wear the alejandro wrap as discussed as much as possible to help reduce swelling and pain, Elevate the extremity when at rest *Alejandro wrap is for support and help control swelling, use it except in the shower. Be sure that is not to tight but not to loose either *Elevate when resting? *Ibuprofen 600-800mg every 6-8 hours as needed for pain an inflammation. If need something more can take Tylenol in between doses of Ibuprofen to help Immediately follow up with your family doctor for new or worsening of symptoms, or no noticeable improvement over the next 3-5 days Follow up with your Family Doctor for blood pressure recheck Clinical Impressions Clinical Impression: Contusion of finger Qualifiers: Encounter type: initial encounter Finger: middle finger Damage to nail status: without damage Laterality: left Qualified Code(s): S60.032A - Contusion of left middle finger without damage to nail, initial encounter Instructions Patient Instructions: How To Perform RICE (Rest, Ice, Compress, Elevate) Discharge ED Provider: Emilee Lion [facility] HPI General Stated complaint: WC3/21, pain in Lt middle finger Mode of Arrival: Ambulatory Source of Information: Patient Limitations: No Limitations Time Seen by Provider: 12/04/23 09:04 Description of Symptoms (Recalled from Triage Doc. by RN): PATIENT C/O INJURY TO LEFT MIDDLE FINGER AFTER A DOOR SHUT ON IT AT WORK THIS MORNING. 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 holding the door with her hand when the broom hit the door causing it to close on her left middle finger States that she has been having bruising and swelling to middle finger ever since Related Data Home Medications Medication Instructions Recorded Confirmed cetirizine 10 mg tablet 10 mg PO DAILY Allergy symptoms 02/15/21 04/18/23 metoprolol succinate 50 mg 50 mg PO DAILY High blood pressure 02/15/21 04/18/23 tablet,extended release 24 hr omeprazole 40 mg capsule,delayed 40 mg PO DAILY GERD 02/15/21 04/18/23 release lisinopril 40 mg tablet 40 mg PO DAILY High blood pressure 03/14/21 04/18/23 amlodipine 10 mg tablet 10 mg PO BID bp 04/09/23 04/18/23 chlorthalidone 25 mg tablet 25 mg PO BID . 04/09/23 04/18/23 clonidine HCl 0.1 mg tablet 0.1 mg PO BID . 04/09/23 04/18/23 ergocalciferol (vitamin D2) 1,250 1,250 mcg PO WEEKLY supplment 04/09/23 04/18/23 mcg (50,000 unit) capsule benzonatate 100 mg capsule 100 mg PO BID PRN . 04/10/23 04/18/23 bisoprolol 10 1 tab PO BID bp 04/10/23 04/18/23 mg-hydrochlorothiazide 6.25 mg tablet spironolactone 25 mg tablet 25 mg PO 04/18/23 04/18/23 Previous Rx's Medication Instructions Recorded hydrocodone 5 mg-acetaminophen 325 1 tab PO Q6H PRN post-op pain #17 04/10/23 mg tablet tabs Allergies Allergy/AdvReac Type Severity Reaction Status Date / Time hydromorphone Allergy Severe S-DIFF. Verified 04/18/23 09:52 BREATHING propoxyphene Allergy Intermediate SHORTNESS Verified 04/18/23 09:52 [From [facility]] OF BREATH Worker's Comp Is this a Worker's Comp case?: No [facility] Disclaimer: The information contained in this section may have been updated after the patient was seen, as this information can be updated by other users. Medical History (Updated 12/04/23 @ 09:36 by Emilee Lion APRN) Cancer Urinary tract infection Migraine HTN (hypertension) CCC (chronic calculous cholecystitis) History of gastroesophageal reflux (GERD) Kidney stone Surgical History History of laparoscopic cholecystectomy S/P breast lumpectomy History of section History of hysterectomy Family History Other Family history of cancer Family history of diabetes mellitus Family history of hypertension Family history of myocardial infarction Family history of stroke Social History Smoking Status: Current every day smoker tobacco type: cigarettes packs per day: 1 second hand exposure: No alcohol intake: never substance use type: denies use current occupational status: employed Travel in the last 8 weeks: None household members: spouse housing: house lives independently: Yes marital status: education level: high school current occupational exposures/hazards: Yes caffeine: Yes special braxton needs: No agree to transfusion: No do you feel safe at home: Yes victim of physical abuse: No victim of emotional abuse: No victim of sexual abuse: No would you like helpful sources: No ROS Obtained: Yes All systems reviewed & no additional complaints except as documented and Yes Systems reviewed as appropriate & no additional complaints except as documented Constitutional Constitutional: Reports system reviewed and no additional complaints, except as documented and Reports as per HPI ENT Ears, Nose, Mouth, and Throat: Reports system reviewed and no additional complaints, except as documented and Reports as per HPI Cardiovascular Cardiovascular: Reports system reviewed and no additional complaints, except as documented and Reports as per HPI Respiratory Respiratory: Reports system reviewed and no additional complaints, except as documented and Reports as per HPI Gastrointestinal Gastrointestingal: Reports system reviewed and no additional complaints, except as documented and as per HPI Genitourinary Female Genitourinary: Reports system reviewed and no additional complaints, except as documented and Reports as per HPI Musculoskeletal Musculoskeletal: Reports system reviewed and no additional complaints, except as documented and Reports as per HPI Comments: pain swelling and bruising to left middle finger since door shut on it at work this morning Physical Exam General General appearance: alert and in no apparent distress Respiratory Respiratory exam: Present normal lung sounds bilaterally; Absent respiratory distress or wheezes Cardiovascular Cardiovascular exam: Present regular rate, normal rhythm and normal heart sounds Expanded Upper Extremity Exam Left: Hand L/R back image: 2 1. bruising and swelling noted Neurological Exam Neurological exam: Present alert, oriented X3 and normal gait Medical Decision Making Silverio Inquiry Pt receiving controlled substance: No Silverio was queried for this patient: No Vital Signs: 12/04/23 08:30 Temperature 97.9 F Temperature Source Oral Pulse Rate [Left Brachial] 74 Respiratory Rate 20 Blood Pressure [Left Arm] 200/113 H Blood Pressure Mean [Left Arm] 142 Blood Pressure Source [Left Arm] Automatic Cuff Blood Pressure Position [Left Arm] Sitting 02 Sat by Pulse Oximetry 100 Oxygen Delivery Method Room Air Orders (Tests/Meds): ORDERS Category Date Time Status XR hand LT min 3V Stat Exams 12/04/23 08:30 Taken Radiology Data #1: Image(s): Hand Image Reviewed: Yes I have reviewed radiologist's interpretation IMPRESSION: No acute process. Medical Decision Narrative: Discussed transfer to the ED for blood pressure control and patient declined States she took her blood pressure medication earlier this morning and declined transfer States she is always high and will F/U with her PCP patient aware of risks even and still declined transfer
--- NOTE | 2023-12-04 09:39 | PC.NURSE ---
FINGER SPLINT APPLIED TO PATIENT'S LEFT MIDDLE FINGER
[2023-12-04 09:40] VITALS: BP 189/107; PULSE 74; RESP 20; TEMP 36.6; O2SAT 100
== END 2023-12-04 09:43 | disposition home or self-care (01) ==
PROVIDERS: Emergency Provider Nurse Practitioner; PCP Internal Medicine Adolescent Medicine
DX: S60.032A Contusion of left middle finger without damage to nail, initial encounter (principal); W23.2XXA Caught, crushed, jammed or pinched between a moving and stationary object, initial encounter; F17.210 Nicotine dependence, cigarettes, uncomplicated; I10 Essential (primary) hypertension; K21.9 Gastro-esophageal reflux disease without esophagitis
CPT/HCPCS: 73130; 99212; 99214; G0463

== ENCOUNTER 2025-07-04 08:39 | Emergency (ER) | payer SELFPAY ==
[2025-07-04 08:40] VITALS: BP 197/126; PULSE 78; RESP 18; TEMP 36.7; O2SAT 100; BMI 23.3
--- NOTE | 2025-07-04 08:47 | ECG_ITS ---
APPROVED REPORT Exam: Resting ECG HR:76 bpm ECG Measurements Heart Rate 76 AXES MT 138 P 71 QRSd 73 QRS 94 QT 362 T 64 QTc 393 Conclusion SINUS RHYTHM BORDERLINE RIGHT AXIS DEVIATION [QRS AXIS > 90] BORDERLINE ECG UNCONFIRMED REPORT Electronically signed by : NATACHA GIRALDO, 07/05/2025 02:49:24
--- NOTE | 2025-07-04 09:06 | XR_ITS ---
FINAL REPORT CLINICAL HISTORY: nonspecific cough COMPARISON: 04/19/2020 FINDINGS: PA and lateral views of the chest were obtained. No acute pulmonary density is evident. There is no evidence of effusion or other pleural disease. The mediastinum has a normal appearance. The cardiac silhouette is unremarkable. IMPRESSION: Unremarkable chest exam. Reviewed, Interpreted and Dictated by Ruth Bowden MD Transcribed by Mindi Wheat Authenticated and [facility]
--- NOTE | 2025-07-04 09:09 | HMH.EDGENADL ---
Discharge Plan Disposition Patient Disposition: Home, Self-Care Prescriptions Prescriptions: New albuterol sulfate [Ventolin HFA] 90 mcg/actuation HFA aerosol inhaler 2 inh inhalation Q6H PRN (Reason: cough) Qty: 8.5 0RF benzonatate 100 mg capsule 100 mg PO TID PRN (Reason: cough) 5 Days Qty: 20 0RF eymizodzoslojdg-nwvuupjom-QM 2-30-10 mg/5 mL syrup 5 ml PO Q6H PRN (Reason: cold symptoms) 7 Days Qty: 118 0RF No Action clonidine HCl 0.1 mg tablet 0.1 mg PO BID chlorthalidone 25 mg tablet 25 mg PO BID Patient Comments: TAKE ONE TABLET BY MOUTH EVERY DAY amlodipine 10 mg tablet 10 mg PO BID ergocalciferol (vitamin D2) 1,250 mcg (50,000 unit) capsule 1,250 mcg PO WEEKLY Patient Comments: TAKE ONE CAPSULE BY MOUTH ONCE WEEKLY spironolactone 25 mg tablet 25 mg PO metoprolol succinate 50 mg tablet extended release 24 hr 50 mg PO DAILY Patient Comments: TAKE ONE TABLET BY MOUTH EVERY DAY cetirizine 10 mg tablet 10 mg PO DAILY Patient Comments: TAKE ONE TABLET BY MOUTH EVERY DAY omeprazole 40 mg capsule,delayed release(DR/EC) 40 mg PO DAILY Patient Comments: TAKE ONE CAPSULE BY MOUTH EVERY DAY lisinopril 40 mg tablet 40 mg PO DAILY bisoprolol-hydrochlorothiazide 10-6.25 mg tablet 1 tab PO BID benzonatate 100 MG capsule 100 mg PO BID PRN (Reason: .) hydrocodone-acetaminophen 5-325 mg tablet 1 tab PO Q6H PRN (Reason: post-op pain) Qty: 17 0RF Rx Instructions: The patient states that she has taken hydrocodone/acetaminophen historically without negative consequence. Referrals Follow up/Referrals: Matthew Pedersen MD [Primary Care Provider, Internal Medicine] - See instructions Activity Restrictions/Add. Instructions Additional Instructions/Restrictions: As discussed your symptoms are consistent with a viral syndrome and an upper respiratory infection and it is imperative that she stop smoking. No evidence of pneumonia on your chest x-ray today your COVID and flu test were negative treatment is supportive please return with fevers that are not breaking with Tylenol or ibuprofen increasing shortness of breath or other concerns. Clinical Impressions Clinical Impression: URI (upper respiratory infection), Encounter for smoking cessation counseling Stand Alone Forms Stand Alone Forms: Work/School Release Print Language Print Language: [place] Citizen Discharge ED Provider: Emily Suero General Adult HPI General Chief complaint: Upper Respiratory Infection Stated complaint: cough, migraine, SOA Time Seen by Provider: 07/04/25 08:58 Mode of Arrival: Ambulatory Source of Information: Patient Description of Symptoms (Recalled from ER Triage Doc. by RN): PT REPORTS PRODUCTIVE COUGH, CONGESTION, FEVER AND VOMITING. REPORTS FEVER 103.2 THIS AM. SYMPTOMS ONGOING FOR 4-5 DAYS. History of Present Illness HPI narrative: 49-year-old presents today with headache congestion nasal discomfort cough and reported fever at home. This been ongoing for 4 to 5 days since . Was exposed to influenza in her home that person ultimately developed pneumonia and she is concerned she may have pneumonia. She is a smoker. But denies any history of COPD or definitive heart or lung diseases. Multiple other people in her household with similar symptoms. Related Data Home Medications ?Medication ?Instructions ?Recorded ?Confirmed cetirizine 10 mg tablet 10 mg PO DAILY Allergy symptoms 02/15/21 04/18/23 metoprolol succinate 50 mg 50 mg PO DAILY High blood pressure 02/15/21 04/18/23 tablet,extended release 24 hr omeprazole 40 mg capsule,delayed 40 mg PO DAILY GERD 02/15/21 04/18/23 release lisinopril 40 mg tablet 40 mg PO DAILY High blood pressure 03/14/21 04/18/23 amlodipine 10 mg tablet 10 mg PO BID bp 04/09/23 04/18/23 chlorthalidone 25 mg tablet 25 mg PO BID . 04/09/23 04/18/23 clonidine HCl 0.1 mg tablet 0.1 mg PO BID . 04/09/23 04/18/23 ergocalciferol (vitamin D2) 1,250 1,250 mcg PO WEEKLY supplment 04/09/23 04/18/23 mcg (50,000 unit) capsule benzonatate 100 mg capsule 100 mg PO BID PRN . 04/10/23 04/18/23 bisoprolol 10 1 tab PO BID bp 04/10/23 04/18/23 mg-hydrochlorothiazide 6.25 mg tablet spironolactone 25 mg tablet 25 mg PO 04/18/23 04/18/23 Previous Rx's ?Medication ?Instructions ?Recorded hydrocodone 5 mg-acetaminophen 325 1 tab PO Q6H PRN post-op pain #17 04/10/23 mg tablet tabs albuterol sulfate 90 mcg/actuation 2 inh inhalation Q6H PRN cough 07/04/25 aerosol inhaler (Ventolin HFA) #8.5 grams benzonatate 100 mg capsule 100 mg PO TID PRN cough 5 days #20 07/04/25 caps cnqbdkivyvqwhab-inpmkgptrgcmtqx-CZ 5 ml PO Q6H PRN cold symptoms 7 07/04/25 2 mg-30 mg-10 mg/5 mL oral syrup days #118 mL Allergies Allergy/AdvReac Type Severity Reaction Status Date / Time hydromorphone Allergy Severe S-DIFF. Verified 04/18/23 09:52 BREATHING propoxyphene (From Allergy Intermediate SHORTNESS Verified 04/18/23 09:52 DARVOCET-N) OF BREATH PFSH PFSH Disclaimer: The information contained in this section may have been updated after the patient was seen, as this information can be updated by other users. Medical History (Updated 07/04/25 @ 09:08 by Emily Suero MD) Cancer Urinary tract infection Migraine HTN (hypertension) CCC (chronic calculous cholecystitis) History of gastroesophageal reflux (GERD) Kidney stone Surgical History History of laparoscopic cholecystectomy S/P breast lumpectomy History of section History of hysterectomy Family History Other Family history of cancer Family history of diabetes mellitus Family history of hypertension Family history of myocardial infarction Family history of stroke Social History Smoking Status: Current every day smoker tobacco type: cigarettes packs per day: 1 second hand exposure: No alcohol intake: never substance use type: denies use current occupational status: employed Travel in the last 8 weeks?: None household members: spouse housing: house lives independently: Yes marital status: education level: high school current occupational exposures/hazards: Yes caffeine: Yes special braxton needs: No agree to transfusion: No do you feel safe at home: Yes victim of physical abuse: No victim of emotional abuse: No victim of sexual abuse: No would you like helpful sources: No Have you lived/traveled outside US in past 30 days?: No Contact w/someone who lives/traveled outside US past 30 days?: No Exposure to someone with infectious disease in past 14 days?: No Do you have a fever (greater than 100.4 F or 38 C)?: No Have you tested positive for COVID-19?: No Exposed to someone with COVID-19 in past 14 days?: No Do you have a sore throat?: No Do you have a cough?: No Do you have any weakness?: No Do you have any diarrhea?: No Are you experiencing any unusual bleeding?: No Do you have any muscle aches/pain?: No Do you have any abdominal pain?: No Are you experiencing loss of taste or smell?: No Other Medical History Have you received the Flu Vaccine for this season: Yes Have you received the Pneumonia Vaccine: Yes ROS Obtained: Yes All systems reviewed & no additional complaints except as documented Physical Exam General General appearance: other (Actively coughing no respiratory distress oxygen saturations 97% on room air) Respiratory Respiratory exam: Present normal lung sounds bilaterally; Absent respiratory distress Cardiovascular Cardiovascular exam: Present regular rate and normal rhythm Neurological Exam Neurological exam: Present alert and oriented X3 Medical Decision Making Medical Records Screening: Per USPSTF and CDC recommendations, given the prevalence of disease in our region, it is our hospital?s policy to screen for HIV and viral Hepatitis for all patients aged 18 and over and those with ongoing risk factors. Silverio Inquiry Pt receiving controlled substance: No Vital Signs: 07/04/25 08:40 07/04/25 10:00 Temperature 98.1 F Temperature Source Oral Pulse Rate 71 Pulse Rate [Radial] 78 Respiratory Rate 18 Blood Pressure 152/111 H Blood Pressure [Right Arm] 197/126 H Blood Pressure Mean [Right Arm] 149 Blood Pressure Source [Right Arm] Automatic Cuff Blood Pressure Position [Right Arm] Sitting 02 Sat by Pulse Oximetry 100 96 Oxygen Delivery Method Room Air Lab Data Lab results reviewed: Yes I reviewed the patient's lab results. Lab Results 07/04/25 08:44: SARS-CoV-2 (PCR) Not detected, Influenza A Untype (PCR) Not detected, Influenza Type B (PCR) Not detected Orders (Tests/Meds): ED MEDICATIONS Discontinued Medications Generic Name Dose Route Start Last Admin Trade Name Freq PRN Reason Stop Dose Admin Acetaminophen 650 mg 07/04/25 09:07 07/04/25 09:35 Acetaminophen 325mg Tab PO 07/04/25 09:08 650 mg ONCE ONE Administration Albuterol/Ipratropium 3 ml 07/04/25 09:07 07/04/25 09:36 Ipratropium/Albuterol 3 Ml Neb IH 07/04/25 09:08 3 ml ONCE ONE Administration Bromphen/Dextromethorphan/Pseudoeph 5 ml 07/04/25 09:07 07/04/25 09:35 Bromphen/Dm/Pse Cough Syrup 5ml PO 07/04/25 09:08 5 ml ONCE ONE Administration ORDERS Category Date Time Status Chest XR 2 view (NOT portable) [XR chest 2V] Stat Exams 07/04/25 09:06 Taken HIV Combo Stat Lab 07/04/25 08:48 Ordered Hepatitis C Ab Qual. W/ RFX Stat Lab 07/04/25 08:48 Ordered Rapid PCR Covid and Flu A/B Stat Lab 07/04/25 08:44 Completed Medical Decision Narrative: Well-appearing 49-year-old without any cardiopulmonary disease history presents today with 4 to 5 days of cough with positive sick contacts consistent with viral syndromes including influenza contact. She has not had her flu vaccine this year. Chest auscultation exam is normal oxygen saturation's are normal low suspicion for pneumonia but will get a two-view chest x-ray. Also will check her for COVID and flu she is outside of any window for treatment she is also not high risk from historical standpoint. I discussed with her that there will be no antiviral therapy regardless of the results of those test. Symptomatic medications have been prescribed. She is not on toxic not in respiratory distress also no evidence of any sepsis. No indication for any labs IV fluids etc. Reassessment 1008 COVID and flu are negative chest x-ray performed which I personally interpreted shows no evidence of dense consolidation or other cardiopulmonary emergency. Patient on reassessment looks very comfortable breathing well oxygen saturation's remain normal. Patient was discharged with symptomatic care and supportive care discussed. Return precautions oversized. Critical Care Critical Care Time Critical Care Time: No
[2025-07-04 09:11] LABS: Coronavirus 19, PCR Not Detected (NotDetected); Influenza A, PCR Not Detected (NotDetected); Influenza B, PCR Not Detected (NotDetected)
--- OUTSIDE RECORDS SUMMARY | 2025-07-04 09:16 | XMS_ITS | Encounter Summary ---
Author Organization [employer] ([place], [place], [place], [place]) Address [address] [place] [address] Care Team Providers Care Immigration Coordinator Name Role Phone Unavailable Primary Care Provider Unavailabl e Encounter Details Date Type Department Care Team (Late st Contact Info) Description 12/25/2018 Transcribed Document [facility] [place] Family Medicine [facility] [place] [address] ProviderSteffanie MD [address] [place] [address] Social History Tobacco Use Types Packs/Day Years Used Date Smoking Tobacco: Never Assessed Comments Unknown Sex and Gender Information Value Date Recorded Sex Assigned at Female 03/12/2022 8:26 PM CDT Legal Sex Female 8:26 PM CDT Gender Identity Female 03/12/2022 8:26 PM CDT Sexual Orientation Not on file documented as of this encounter Miscellaneous Notes * Cerner Conversion Note - Historical ProviderMD - 12/25/2018 2:55 PM CDT [facility] [place] Pre[place] Summary Primary Physician: EHSAN HALL MD-URO Finalized Date/Time: 01/13/19 11:29:49 Pt. Name: STEWART GUTIERREZO.B./Sex: 1975 Female Med Rec #: [id number] Physician: EHSAN HALL MD-URO Financial #: [id number] Pt. Type: O Room/Bed: [facility]/ Admit/Disch: 12/25/18 12:03:00 - 12/25/18 18:06:00 Institution: [facility] [place] PreOp Case Times Entry 1 In Preop 12/25/18 12:10:00 Ready for Holding n/a Room Patient Ready for 12/25/18 14:10:00 Surgery Patient Out of Preop 12/25/18 14:40:00 Patient Out of n/a Holding Room Last Modified By: PJ VILLARREAL 12/28/18 10:18:53 SJYasmin PreOp Case Times Audit 12/28/18 10:18:53 Credit Review Officer: TANIA Modifier: [email or web address] <+> 1 Patient Out of Preop Finalized By: Aracelis Méndez, CHUY Document Signatures Signed By: PJ VILLARREAL 12/28/18 10:18 Aracelis Méndez RN 01/13/19 11:29 Unfinalized History Date/Time Username Reason for Unfinalizing Freetext Reason for Unfinalizing 01/13/19 11:29 CATHERINE Chart Audit documented in this encounter Plan of Treatment Not on file documented as of this encounter Visit Diagnoses Not on filedocumented in this encounter
--- OUTSIDE RECORDS SUMMARY | 2025-07-04 09:16 | XMS_ITS | Encounter Summary ---
Author Organization [employer] ([place], [place], [place], [place]) Address [address] [place] [address] Care Team Providers Care Embedded Systems Software Engineer Name Role Phone Unavailable Primary Care Provider Unavailabl e Encounter Details Date Type Department Care Team (Late st Contact Info) Description 12/25/2018 Transcribed Document [facility] [place] [facility] [place] [address] ProviderSteffanie MD [address] [place] [address] Social History Tobacco Use Types Packs/Day Years Used Date Smoking Tobacco: Never Assessed Comments Unknown Sex and Gender Information Value Date Recorded Sex Assigned at Female 03/12/2022 8:26 PM CDT Legal Sex Female 8:26 PM CDT Gender Identity Female 03/12/2022 8:26 PM CDT Sexual Orientation Not on file documented as of this encounter Miscellaneous Notes * Cerner Conversion Note - Steffanie ProviderMD - 12/25/2018 3:29 PM CDT DATE OF PROCEDURE: 12/25/2018 PREOPERATIVE DIAGNOSIS(ES): Left ureteral stone. POSTOPERATIVE DIAGNOSIS(ES): Left distal ureteral stone. PROCEDURE: 1. Cystoscopy. 2. Left retrograde pyelogram. 3. Left ureteroscopy. 4. Laser of left ureteral stone. 5. Left ureteral stent placement. SURGEON: Rufus Osei M.D. ANESTHESIA: General. DRAINS: 4.8 x 24 left ureteral stent, string removed. BRIEF HISTORY: Patient is a 43-year-old female, who presented to me at [facility] earlier this week with 36 hours of severe left flank pain. She had a CT scan there, which demonstrated a 3 x 4 mm stone in mid left ureter. We made arrangements for intervention due to the level of her severity of pain. She had no previous stone history. She was brought to the operating room today for intervention. She has had intermittent pain this week, but has not passed a stone, and is continuing to strain her urine. DESCRIPTION OF PROCEDURE: After satisfactory general anesthesia, she was carefully placed in dorsal supine position. Genitals were prepped and draped in normal fashion. External genitalia was unremarkable. A 21-S[place] T[place]an cystoscopy sheath was introduced with a 30 degree lens. The left ureteral orifice was moderately edematous and raised, suggestive of the stone there. Fluoroscopically, there was a thick calcification in the area of the ureterovesical junction. A 5-[place]an open-ended ureteral catheter was placed in the left ureteral orifice and retrograde pyelogram performed. This calcification proved to be within the left distal ureter with hydronephrosis above it. I then passed a 0.035 ZIPwire beyond the stone easily. This then allowed a large amount of old bloody urine to egress from the ureteral orifice. The ureteral orifice was snug and therefore a second wire was passed through the semi-rigid ureteroscope to introduce this. This was advanced up to the level of the stone, but there was a slight band there. I was able to access the stone briefly. A 365 micron fiber was used at 8 rodriguez to fragment the stone in half, but then the stone reduced more proximally. The ureter was quite edematous and did not want to accommodate the scope. After gentle attempts, it seemed quite friable. I was concerned about perforating her ureter and elected to discontinue further intervention. I therefore removed the ureteroscope and passed a stent over the previously placed wire. There was a good curl in the kidney and gallbladder. I removed the string. We will plan to leave this in for about 10 days and then readdress her stone. She was placed on Bactrim Double Strength b.i.d. as well as a prescription for Zofran and Pyridium. She was awakened and extubated, transferred to postop recovery room in stable condition. She will follow up with me in [place] next week to discuss further intervention. Rufus Osei M.D. Dict: 12/25/2018 15:29:38 Trans: 12/25/2018 19:05:55 CC1: Rufus Osei M.D. documented in this encounter Plan of Treatment Not on file documented as of this encounter Visit Diagnoses Not on filedocumented in this encounter
--- OUTSIDE RECORDS SUMMARY | 2025-07-04 09:16 | XMS_ITS | Encounter Summary ---
Author Organization [employer] ([place], [place], [place], [place]) Address [address] [place] [address] Care Team Providers Care Editor Managing Director Name Role Phone Unavailable Primary Care Provider Unavailabl e Encounter Details Date Type Department Care Team (Late st Contact Info) Description 12/25/2018 Transcribed Document [facility] [place] Family Medicine [facility] [place] [address] ProviderSteffanie MD [address] [place] [address] Social History Tobacco Use Types Packs/Day [...] Historical ProviderMD - 12/25/2018 2:55 PM CDT [facility] [place] Summary Primary Physician: EHSAN HALL MD-URO Finalized Date/Time: 12/25/18 17:26:43 Pt. Name: STEWART GUTIERREZO.B./Sex: 1975 Female Med Rec #: [id number] Physician: EHSAN HALL MD-URO Financial #: [id number] Pt. Type: O Room/Bed: [facility]/ Admit/Disch: 12/25/18 12:03:00 - Institution[place] [facility] [place] PAC[place] Case Times Entry 1 In PACU I 12/25/18 15:35:00 Ready for PACU 12/25/18 16:00:00 Discharge Discharge from PACU 12/25/18 17:15:00 I Last Modified By: LEXA BYRD, RN 12/25/18 16:31:48 [facility] Main OR PACU Case Times Audit 12/25/18 17:26:09 Slope Hoist Operator: CHEWNICL Modifier: [email or web address] <+> 1 Discharge from PACU I 12/25/18 16:31:48 Slope Hoist Operator: CHEWNICL Modifier: [email or web address] <+> 1 Ready for PACU Discharge [facility] Main OR PACU Acuity Entry 1 Start Time 12/25/18 16:00:00 Stop Time 12/25/18 17:15:00 Acuity Level [facility] PACU Acuity I Last Modified By: LEXA BYRD RN 12/25/18 17:26:42 Finalized By: LEXA BYRD, RN Document Signatures Signed By: LEXA BYRD RN 12/25/18 17:26 documented in this encounter Plan of Treatment Not on file documented as of this encounter Visit Diagnoses Not on filedocumented in this encounter
--- OUTSIDE RECORDS SUMMARY | 2025-07-04 09:16 | XMS_ITS | Encounter Summary ---
Author Organization [email or web address] ([place], [place], [place], [place]) Address [address] [place] [address] Care Team Providers Care Sales Inspector Name Role Phone Unavailable Primary Care Provider Unavailabl e Encounter Details Date Type Department Care Team (Late st Contact Info) Description 12/25/2018 Transcribed Document [facility] [place] Family Medicine [facility] [place] [address] ProviderSteffanie MD [address] [place] [address] Social History Tobacco Use Types Packs/Day [...] Historical ProviderMD - 12/25/2018 2:55 PM CDT [facility] Main OR PostOp Summary Primary Physician: EHSAN HALL MD-URO Finalized Date/Time: 12/25/18 18:11:10 Pt. Name: STEWART GUTIERREZO.B./Sex: 1975 Female Med Rec #: [id number] Physician: EHSAN HALL MD-URO Financial #: [id number] Pt. Type: O Room/Bed: [facility] Admit/Disch: 12/25/18 12:03:00 - Institution: [facility] Main OR PostOp Case Times Entry 1 In PACU II 12/25/18 17:19:00 Ready for PACU II 12/25/18 18:06:00 Discharge Discharge from PACU 12/25/18 18:06:00 II Last Modified By: Antonieta Deras, Rn 12/25/18 18:11:06 [facility] Main OR PostOp Case Times Audit 12/25/18 18:11:06 Assistant Community Manager: [id number] Modifier: [id number] <+> 1 Ready for PACU II Discharge <+> 1 Discharge from PACU II Finalized By: Antonieta Deras Rn Document Signatures Signed By: Antonieta Deras Rn 12/25/18 18:11 Electronically signed by Laurie Cantor Conversion Photographic Machine Operator Cerner at 01/03/2023 3:43 PM CDT documented in this encounter Plan of Treatment Not on file documented as of this encounter Visit Diagnoses Not on filedocumented in this encounter
--- OUTSIDE RECORDS SUMMARY | 2025-07-04 09:16 | XMS_ITS | Encounter Summary ---
Author Organization [employer] ([place], [place], [place], [place]) Address [address] [place] [address] Care Team Providers Care Pallet Rectifier Name Role Phone Unavailable Primary Care Provider Unavailabl e Encounter Details Date Type Department Care Team (Late st Contact Info) Description 12/25/2018 Transcribed Document [facility] [place] Family Medicine [address] [place] [address] ProviderSteffanie MD [address] [place] [address] Social History Tobacco Use Types Packs/Day [...] Conversion Note - Historical ProviderMD - 12/25/2018 12:37 PM CDT Pediatric Growth Entered On: 12/25/2018 12:37 EDT Performed On: 12/25/2018 12:37 EDT by [facility]i [facility] Height and Weight, Clinical Dosing Weight Source : Standing scale Weight Entry Format : [place] Clinical Dosing Weight : 80.45 kg Weight, Pounds : 177 lb [facility]i Pe[facility] - 12/25/2018 12:37 EDT Electronically signed by Laurie Cantor Conversion Department Of Sociology Chair Sandra at 01/03/2023 3:54 PM CDT documented in this encounter Plan of Treatment Not on file documented as of this encounter Visit Diagnoses Not on filedocumented in this encounter
--- OUTSIDE RECORDS SUMMARY | 2025-07-04 09:17 | XMS_ITS | Clinical Summary ---
Author Organization [facility] Address [address] [place] [address] Care Team Providers Care Computer Bookkeeper Name Role Phone Matthew Pedersen MD Primary Care Provider [phone] Allergies Active Allergy Reactions Criticality Noted Date Comments Hydromorphone Other - please docum ent in the comment field Low 03/24/2023 Side effects Other Other - please docum ent in the comment field Low 03/24/2023 Darvocet N 50 has side effects Medications Aspirin-Acetamino phen-Caffeine 520260-32.5 MG pack Take by mouth. Active cetirizine (ZyrTEC) 10 MG tablet Take 1 tablet (10 mg) by mouth 1 (one) time each day. Active EPINEPHrine (Epipen) 0.3 MG/0.3ML injection syringe Inject into the muscle if needed. Inject into upper leg. Call 911 after use. Active ondansetron (Zofran) 4 MG tablet Take 1 tablet (4 mg) by mouth every 8 (eight) hours if needed. Active omeprazole (PriLOSEC) [address] capsule Take 1 capsule (40 mg) by mouth 1 (one) time each day. Do not crush or chew. Active ibuprofen 800 MG tablet Take 1 tablet (800 mg) by mouth every 6 (six) hours if needed. Active lisinopril 40 MG tablet Take 1 tablet (40 mg) by mouth 1 (one) time each day. Active amLODIPine (Norvasc) 10 MG tablet Take by mouth 1 (one) time each day. Active cloNIDine (Catapres) 0.2 MG tablet Take 1 tablet (0.2 mg) by mouth. 3 Active metoprolol succinate XL (Toprol-XL) 50 MG 24 hr tablet Take 1 tablet (50 mg) by mouth 1 (one) time each day. 3 Active chlorthalidone (Hygroton) 25 MG tabletIndications :Hypertension, unspecified type Take 1 tablet (25 mg) by mouth 1 (one) time each day. 30 tablet 5 3 Active VITAMIN D PO Take by mouth. Active ergocalciferol 1.25 MG (63005 UT) capsule Take 1 capsule (50,000 Units) by mouth 1 (one) time per week. 3 Active spironolactone (Aldactone) 50 MG tabletIndications :Resistant hypertension Take 1 tablet (50 mg) by mouth 1 (one) time each day in the morning. 30 each 2 3 Active Family History Medical History Relation Name Comments Allergies Father Coronary artery disease Father Hypertension Father borderline diabetes Father skin disorder Father Fibromyalgia Mother Hypertension Mother Relation Name Status Comments Father Alive Mother Alive Social History Tobacco Use Types Packs/Day Years Used Date Smoking Tobacco: Every Day Cigarettes Passive Smoke Exposure: Current Smokeless Tobacco: Never Alcohol Use Standard Drinks/Week Comments Never 0 (1 standard drink = 0.6 oz pur e alcohol) Comments Unknown Sex and Gender Information Value Date Recorded Sex Assigned at Not on file Legal Sex Female 8:00 PM EDT Gender Identity Not on file Sexual Orientation Not on file Last Filed Vital Signs Vital Sign Reading Time Taken Comments Blood Pressure 144/91 04/28/2023 12:46 PM EDT Pulse 70 04/28/2023 12:46 PM EDT Temperature - - Respiratory Rate 18 04/28/2023 12:46 PM EDT Oxygen Saturation 99% 04/28/2023 12:46 PM EDT Inhaled Oxygen Concentration - - Weight 64.5 kg (142 lb 3.2 oz) 04/28/2023 12:46 PM EDT Height 162.6 cm (5' 4 ) 03/28/2023 2:42 PM EDT Body Mass Index 24.41 03/28/2023 2:42 PM EDT Plan of Treatment Health Maintenance Due Date Last Done Comments [facility]-Depression Screening 1976 [facility]-HIV Screening 1976 [facility]-Hepatitis C Screening 1976 [facility]-/Child/Adol SDOH Screenings 1976 [facility]- SDOH Screenings 1994 [facility]-Adult SDOH Screenings 1994 [facility]-Pap Smear 1997 [facility]-Cervical Cancer Screening 2006 [facility]-HPV/Cotest 2006 CT Colonography 2021 Colonoscopy 2021 FIT-DNA 2021 FIT 2021 FOBT 2021 Sigmoidoscopy 2021 [facility]-Colorectal Cancer Screening 2021 ARN-UTNOT-12 Vaccine ( season) 2025 06/21/2022, 08/17/2021, 12/26/2020, Additional history exists [facility]-Influenza Vaccine (#1) 05/16/202505/28, 06/21/2022, 08/25/2020, Additional history exists [facility]-Zoster Vaccines (1 of 2) 2026 [facility]-DTaP,Tdap,and Td Vaccines (2 - Td or Tdap) 04/28/2031 04/28/2021 [facility]-Hepatitis B Vaccines Completed 09/22/2020, 08/15 HPV Vaccines Aged Out No longer eligi ble based on patient's age to complete this topic [facility]-HIB Vaccines Aged Out No longer e ligible based on patient's age to complete this topic [facility]-Hepatitis A Vaccines Aged Out No longer eligible based on patient's age to complete this topic [facility]-IPV Vaccines Aged Out No longer e ligible based on patient's age to complete this topic [facility]-Pneumococcal Vaccine: Pediatrics (0 to 5 Years) and At-Risk Patients (6 to 49 Years) Aged Out No longer eligible based on patient's age to complete this topic [facility]-Rotavirus Vaccines Aged Out No lo nger eligible based on patient's age to complete this topic Care Teams Computer Bookkeeper Relationship Specialty Start Date End Date Matthew Pedersen MD [address] [place] [address] PCP - General Internal Medicine 03/28/23
--- OUTSIDE RECORDS SUMMARY | 2025-07-04 09:17 | XMS_ITS | Encounter Summary ---
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 Name Role Phone Unavailable Primary Care Provider Unavailabl e Encounter Details Date Type Department Care Team (Late st Contact Info) Description 12/25/2018 Transcribed Document [facility] Family Medicine [facility] [place] [address] ProviderSteffanie MD [address] [place] [id number] Social History Tobacco Use Types Packs/Day [...] Conversion Note - Historical ProviderMD - 12/25/2018 1:58 PM CDT Pre Procedure Adult Entered On: 12/25/2018 14:02 EDT Performed On: 12/25/2018 13:58 EDT by Sejal Singh Rn Height and Weight, Clinical Dosing Height Source : Stated Height Entry Format : [place] Height, Feet : 5 ft(Converted to: 152 cm, 60 Inch) Height, Inches : 4 Inch(Converted to: 0 ft 4 Inch, 10.16 cm) Clinical Height : 162.56 cm Weight Source : Standing scale Weight Entry Format : [place] Clinical Dosing Weight : 80.45 kg Weight, Pounds : 177 lb Body Surface Area (BSA) : 1.86 m2 Body Mass Index : 30.4 kg/m2 (HI) [place] Body Weight : 54 kg Sejal Singh Rn - 12/25/2018 13:58 EDT Health Histories Smoking Status : 10 or more cigarettes (1/2 pack or more)/day in last 30 days Smokeless Tobacco Status : Never Desires Tobacco Cessation Medication : No Reason for No Tobacco Cessation Medication : Refuses FDA approved medications Implant/Device Type, Deck Steward and Model : denies Sejal Singh Rn - 12/25/2018 13:58 EDT Social History (As Of: 12/25/2018 14:02:18 EDT) Tobacco: 10 or more cigarettes (1/2 pack or more)/day in last 30 days Smoking Status. (Last Updated: 12/25/2018 13:58:50 EDT by Sejal Singh Rn) Alcohol: Alcohol Use History No. (Last Updated: 12/25/2018 13:58:54 EDT by Sejal Singh Rn) Substance Abuse: Drug Use Hx: No. (Last Updated: 12/25/2018 13:58:57 EDT by Sejal Singh Rn) Infectious Disease History Infectious Disease History : Chicken pox/Shingles Fever/Chills Last 48 Hours : No Travel To Regions with Travel Advisories : No Travel Outside [place] Within Last 30 Days : No Contact With Traveler to Advisory Region : No Tuberculosis Symptoms : None Sejal Singh Rn - 12/25/2018 13:58 EDT Anesthesia/Transfusion History Family History of Anesthesia Reaction : Prior transfusion without reaction Transfusion History : Prior anesthesia without reaction Family History of Anesthesia Reaction : None Sejal Singh Rn - 12/25/2018 13:58 EDT Functional Assessment Living Situation : Home Patient Lives With : Spouse Persons Assisting Patient at Home : Spouse Current Daily Living Assistance : None Sensory Deficits : None Mobility Assistance Prior to Admission : Independent INFANTE Hx Falls Immediate/Within 3 Months : No Current Home Treatments : None Home Equipment : None Professional Skilled Services : None Special Services and Community Resources : None Sejal Singh Rn - 12/25/2018 13:58 EDT Psychosocial History Currently in Unsafe Situation : No Tried to Harm Yourself in the Past? : No Thoughts of Harming/Killing Yourself : No Sejal Singh Rn - 12/25/2018 13:58 EDT Advance Directive Patient has Advance Directive *Q : No, patient refuses Advance Directive information Sejal Singh Rn - 12/25/2018 13:58 EDT Spiritual/Cultural Needs Any Spiritual/Cultural Needs or Requests : No Sejal Singh Rn - 12/25/2018 13:58 EDT Teaching/Learning Assessment Barriers To Learning : None evident Individuals Taught : Patient Readiness to Learn : Cooperative Readiness to Learn : Explanation Learning Style Preferences Patient : None Learning Style Preferences Family : None Sejal Singh Rn - 12/25/2018 13:58 EDT Education Topics, Periop Preadmission Perioperative Education Grid Falls : Verbalizes understanding Infection Control : Verbalizes understanding IV's : Verbalizes understanding NPO Status/Directions : Verbalizes understanding Pain Management : Verbalizes understanding Postoperative Care Preparations : Verbalizes understanding Preprocedure Preparations : Verbalizes understanding Preprocedure Tests/Labs : Verbalizes understanding Sejal Singh Rn - 12/25/2018 13:58 EDT General Info Arrived From : Home Mode of Arrival on Unit : Ambulatory Patient Arrival Date/Time : 12/25/2018 12:10 EDT Legal Guardian : Spouse Want Family/Rep/Phys Notified of Admit : No Emergency Contact #1 : Cornelio Wood Emergency Contact #1 Emergency Contact #1 Relationship : Emergency Contact #2 : none Emergency Contact #2 Phone Number : none Emergency Contact #2 Relationship : none Information Obtained From : Patient Primary Language : Slovenian Preferred Communication Mode : Verbal Communication Barrier : None Currently Lactating : No Status : Hysterectomy Sejal Singh Rn - 12/25/2018 13:58 EDT Sleep Apnea Risk Assmt Hx of Obstructive Sleep Apnea Diagnosis : No Snore Loudly : Yes Tired, Fatigued, or Sleepy During Day : No Observed Stopping Breathing During Sleep : No Have/Are Being Treated for Hypertension : Yes BMI Greater Than 35 kg/m2 : No Age over 50 Years Old : No Neck Circumference Greater Than 40 cm : No Gender Male : No STOP-BANG Sleep Apnea Risk Level Score : 2 Sejal Singh Rn - 12/25/2018 13:58 EDT Danny Scale Danny Sensory Perception : No impairment Danny Moisture : Rarely moist Danny Activity : Walks occasionally Danny Mobility : No limitation Danny Nutrition : Adequate Danny Friction and Shear : No apparent problem Danny Score : 21 Sejal Singh Rn - 12/25/2018 13:58 EDT Oxygen Therapy Oxygen Therapy Mode : Room air Sejal Singh Rn - 12/25/2018 13:58 EDT Pain Assessment Pain Assessment : Initial assessment Pain Scale Goal : 4 Pain Scale Used : FACES Sejal Singh Rn - 12/25/2018 13:58 EDT Fall Risk Scales ABCs Fall Injury Risk Identification : None INFANTE Hx Falls Immediate/Within 3 Months : No [place] Secondary Diagnosis : No INFANTE Use of Ambulatory Aid : None INFANTE IV Therapy or IV Access : Yes [place] Gait/Transferring : Normal, bedrest, immobile Inf[place] Mental Status : Oriented to own ability [place] Fall Risk Score : 20 INFANTE Fall Scale Risk Level : 0-24 Low Risk [place] Fall Interventions : Adequate lighting, Bed in low position, Call device within reach, Room free of clutter/spills, Upper side-rails up, Wheels locked Sejal Singh Rn - 12/25/2018 13:58 EDT Fall Risk Education Grid Call light use : Verbalizes understanding Nonskid Footwear Use : Verbalizes understanding Prevention Responsibility Patient : Verbalizes understanding Sejal Singh Rn - 12/25/2018 13:58 EDT Barriers to Learning : None evident Individuals Taught : Patient Readiness to Learn : Cooperative Teaching Method : Explanation Learning Style Preferences Family : None Learning Style Preferences Patient : None Sejal Singh Rn - 12/25/2018 13:58 EDT Education Topics, Day of Surgery DayofSurgery Education Grid Fall Risks : Verbalizes understanding Family Instructions : Verbalizes understanding Infection Control : Verbalizes understanding Infection Risks : Verbalizes understanding IV's : Verbalizes understanding Medication Instructions : Verbalizes understanding Pain Management : Verbalizes understanding Plan of Care : Verbalizes understanding Sejal Singh Rn - 12/25/2018 13:58 EDT Valuables and Belongings Valuables and Belongings : Clothing Clothing : Common streetwear Clothing Disposition : With patient Sejal Singh Rn - 12/25/2018 13:58 EDT Pain Scale Intensity : 4 Sejal Singh Rn - 12/25/2018 13:58 EDT Image 4 - Images currently included in the form version of this document have not been included in the text rendition version of the form. Arlette Coma Arlette Best Motor Response : Obey commands Arlette Best Verbal Response : Oriented [place] Eye Opening Response : Spontaneous Arlette Coma Score : 15 Sejal Singh Rn - 12/25/2018 13:58 EDT Electronically signed by [facility] Conversion Tank Filler Cerner at 01/03/2023 3:42 PM CDT documented in this encounter Plan of Treatment Not on file documented as of this encounter Visit Diagnoses Not on filedocumented in this encounter
--- OUTSIDE RECORDS SUMMARY | 2025-07-04 09:17 | XMS_ITS | Encounter Summary ---
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 Name Role Phone Unavailable Primary Care Provider Unavailabl e Encounter Details Date Type Department Care Team (Late st Contact Info) Description 12/25/2018 Transcribed Document [facility] [place] [facility] [place] [address] ProviderSteffanie MD [address] [place] [address] Social History Tobacco Use Types [...] Conversion Note - Historical ProviderMD - 12/25/2018 2:22 PM CDT Event Note Entered On: 12/25/2018 14:22 EDT Performed On: 12/25/2018 14:22 EDT by Sejal Singh Rn Event Note Event Date/Time : 12/25/2018 14:22 EDT Description of Event : 1422: Dr. Osei notified re: patient had taken Goody's powder which contains a dose of aspirin on 12/24/18. No additional orders received. Sejal Singh Rn - 12/25/2018 14:22 EDT documented in this encounter Plan of Treatment Not on file documented as of this encounter Visit Diagnoses Not on filedocumented in this encounter
--- OUTSIDE RECORDS SUMMARY | 2025-07-04 09:17 | XMS_ITS | Encounter Summary ---
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 Role Phone Unavailable Primary Care Provider Unavailabl e Encounter Details Date Type Department Care Team (Late st Contact Info) Description 12/25/2018 Transcribed Document [facility] – [place] Family Medicine [facility] [place] [address] ProviderSteffanie MD [address] [place] [id number] Social History Tobacco Use Types Packs/Day [...] Conversion Note - Steffanie ProviderMD - 12/25/2018 5:30 [place] [address] STEWART GUTIERREZ :1975 Visit Time:12/25/2018 What to do next Your Diagnosis Calculus of kidney, Calculus of kidney Instructions From Your Care Team Discharge Follow Up Instructions: Follow up in [place] Friday am Next Hermleigh pain pill due 12/25/18 @ 11:35pm Follow-Up Appointments Follow Up with Follow up with surgeon When 12/29/2018 12:00 AM EDT Comments call Friday morning to make AM appt in [place] for Friday12/29/18 Medications What How Much When Instructions Next Dose Unchanged acetaminophen-oxyCODONE (Percocet 7.5/ 325 oral tablet) 1 Tablet(s) Oral Every 6 Hours as needed for Pain (Mild 1-3) Unchanged acetaminophen/ aspirin/ caffeine (Goodys Extra Strength oral tablet) 1 Tablet(s) Oral Every 6 Hours as needed for for headache Take your medications faithfully. Do NOT skip medication. Do NOT stop taking medications without the direction of a physician. Carry a list of your medications with you at all times, and take this medication list with you to your first follow up visit. Report any side effects. Avoid herbal remedies unless discussed with your physician. As part of your treatment plan, your physician may have prescribed a limited course of a controlled substance. This medication may be given to help people with moderate or severe pain or for other medical conditions, but there are risks involved with treatment. Common side effects may include nausea, constipation, drowsiness, sweating, itching, dry mouth, and rash. More serious side effects may include cognitive and motor impairment, like problems with thinking, concentrating, alertness, and movement (e.g. slowed reflexes), and driving and operating heavy machinery can be dangerous. It is important for you to talk to your physician if you have these side effects or questions. These controlled substances can produce physical dependence and be habit-forming if taken for an extended period of time, which means that the body has gotten used to them and may experience withdrawal symptoms if they are abruptly stopped. Withdrawal symptoms can include runny nose, sweating, goose bumps, diarrhea, abdominal cramping, rapid heartbeat, difficulty sleeping, and nervousness. Please dispose of unused and medications per pharmacy guidance. Education Materials Ureteral Stent Implantation, Care After Introduction Refer to this sheet in the next few weeks. These instructions provide you with information about caring for yourself after your procedure. Your health care provider may also give you more specific instructions. Your treatment has been planned according to current medical practices, but problems sometimes occur. Call your health care provider if you have any problems or questions after your procedure. What can I expect after the procedure? After the procedure, it is common to have: ??? Nausea. ??? Mild pain when you urinate. You may feel this pain in your lower back or lower abdomen. Pain should stop within a few minutes after you urinate. This may last for up to 1 week. ??? A small amount of blood in your urine for several days. Follow these instructions at home: Medicines ??? Take xzav-qcq-zrmqdvn and prescription medicines only as told by your health care provider. ??? If you were prescribed an antibiotic medicine, take it as told by your health care provider. Do not stop taking the antibiotic even if you start to feel better. ??? Do notdrive for 24 hours if you received a sedative. ??? Do notdrive or operate heavy machinery while taking prescription pain medicines. Activity ??? Return to your normal activities as told by your health care provider. Ask your health care provider what activities are safe for you. ??? Do notlift anything that is heavier than 10 lb (4.5 kg). Follow this limit for 1 week after your procedure, or for as long as told by your health care provider. General instructions ??? Watch for any blood in your urine. Call your health care provider if the amount of blood in your urine increases. ??? If you have a catheter: ? Follow instructions from your health care provider about taking care of your catheter and collection bag. ? Do nottake baths, swim, or use a hot tub until your health care provider approves. ??? Drink enough fluid to keep your urine clear or pale yellow. ??? Keep all follow-up visits as told by your health care provider. This is important. Contact a health care provider if: ??? You have pain that gets worse or does not get better with medicine, especially pain when you urinate. ??? You have difficulty urinating. ??? You feel nauseous or you vomit repeatedly during a period of more than 2 days after the procedure. Get help right away if: ??? Your urine is dark red or has blood clots in it. ??? You are leaking urine (have incontinence). ??? The end of the stent comes out of your urethra. ??? You cannot urinate. ??? You have sudden, sharp, or severe pain in your abdomen or lower back. ??? You have a fever. This information is not intended to replace advice given to you by your health care provider. Make sure you discuss any questions you have with your health care provider. Document Released: 05/04/2014 Document Revised: 02/06/2017 Document Reviewed: 03/15/2016 ?? 2017 Elsevier General Anesthesia, Adult, Care After These instructions provide you with information about caring for yourself after your procedure. Your health care provider may also give you more specific instructions. Your treatment has been planned according to current medical practices, but problems sometimes occur. Call your health care provider if you have any problems or questions after your procedure. What can I expect after the procedure? After the procedure, it is common to have: ??? Vomiting. ??? A sore throat. ??? Mental slowness. It is common to feel: ??? Nauseous. ??? Cold or shivery. ??? Sleepy. ??? Tired. ??? Sore or achy, even in parts of your body where you did not have surgery. Follow these instructions at home: For at least 24 hours after the procedure: ??? Do not: ? Participate in activities where you could fall or become injured. ? Drive. ? Use heavy machinery. ? Drink alcohol. ? Take sleeping pills or medicines that cause drowsiness. ? Make important decisions or sign legal documents. ? Take care of children on your own. ??? Rest. Eating and drinking ??? If you vomit, drink water, juice, or soup when you can drink without vomiting. ??? Drink enough fluid to keep your urine clear or pale yellow. ??? Make sure you have little or no nausea before eating solid foods. ??? Follow the diet recommended by your health care provider. General instructions ??? Have a responsible adult stay with you until you are awake and alert. ??? Return to your normal activities as told by your health care provider. Ask your health care provider what activities are safe for you. ??? Take nfiu-wgt-lindxmo and prescription medicines only as told by your health care provider. ??? If you smoke, do not smoke without supervision. ??? Keep all follow-up visits as told by your health care provider. This is important. Contact a health care provider if: ??? You continue to have nausea or vomiting at home, and medicines are not helpful. ??? You cannot drink fluids or start eating again. ??? You cannot urinate after 8???12 hours. ??? You develop a skin rash. ??? You have fever. ??? You have increasing redness at the site of your procedure. Get help right away if: ??? You have difficulty breathing. ??? You have chest pain. ??? You have unexpected bleeding. ??? You feel that you are having a life-threatening or urgent problem. This information is not intended to replace advice given to you by your health care provider. Make sure you discuss any questions you have with your health care provider. Document Released: 12/08/2001 Document Revised: 02/03/2017 Document Reviewed: 08/15/2016 [employer] Interactive Patient Education ?? 2017 [employer]. Cystoscopy, Care After Refer to this sheet in the next few weeks. These instructions provide you with information about caring for yourself after your procedure. Your health care provider may also give you more specific instructions. Your treatment has been planned according to current medical practices, but problems sometimes occur. Call your health care provider if you have any problems or questions after your procedure. What can I expect after the procedure? After the procedure, it is common to have: ??? Mild pain when you urinate. Pain should stop within a few minutes after you urinate. This may last for up to 1 week. ??? A small amount of blood in your urine for several days. ??? Feeling like you need to urinate but producing only a small amount of urine. Follow these instructions at home: Medicines ??? Take zwwc-kjq-fcsndlp and prescription medicines only as told by your health care provider. ??? If you were prescribed an antibiotic medicine, take it as told by your health care provider. Do not stop taking the antibiotic even if you start to feel better. General instructions ??? Return to your normal activities as told by your health care provider. Ask your health care provider what activities are safe for you. ??? Do notdrive for 24 hours if you received a sedative. ??? Watch for any blood in your urine. If the amount of blood in your urine increases, call your health care provider. ??? Follow instructions from your health care provider about eating or drinking restrictions. ??? If a tissue sample was removed for testing (biopsy) during your procedure, it is your responsibility to get your test results. Ask your health care provider or the department performing the test when your results will be ready. ??? Drink enough fluid to keep your urine clear or pale yellow. ??? Keep all follow-up visits as told by your health care provider. This is important. Contact a health care provider if: ??? You have pain that gets worse or does not get better with medicine, especially pain when you urinate. ??? You have difficulty urinating. Get help right away if: ??? You have more blood in your urine. ??? You have blood clots in your urine. ??? You have abdominal pain. ??? You have a fever or chills. ??? You are unable to urinate. This information is not intended to replace advice given to you by your health care provider. Make sure you discuss any questions you have with your health care provider. Document Released: 03/21/2006 Document Revised: 02/06/2017 Document Reviewed: 07/18/2016 [employer] Interactive Patient Education ?? 2017 [employer]. ondansetron (oral) (on JOSE se jose) Ted Jean Zuplenz What is the most important information I should know about ondansetron? You should not use ondansetron if you are also using apomorphine (Apokyn). What is ondansetron? Ondansetron blocks the actions of chemicals in the body that can trigger nausea and vomiting. Ondansetron is used to prevent nausea and vomiting that may be caused by surgery, cancer chemotherapy, or radiation treatment. Ondansetron may be used for purposes not listed in this medication guide. What should I discuss with my health care provider before taking ondansetron? You should not use ondansetron if: ? you are also using apomorphine (Apokyn); or ?? you are allergic to ondansetron or similar medicines (dolasetron, granisetron, palonosetron). To make sure ondansetron is safe for you, tell your doctor if you have: ? liver disease; ?? an electrolyte imbalance (such as low levels of potassium or magnesium in your blood); ?? congestive heart failure, slow heartbeats; ?? a personal or family history of long QT syndrome; or ?? a blockage in your digestive tract (stomach or intestines). Ondansetron is not expected to harm an unborn baby. Tell your doctor if you are . It is not known whether ondansetron passes into breast milk or if it could harm a nursing baby. Tell your doctor if you are breast-feeding a baby. Ondansetron is not approved for use by anyone younger than 4 years old. Ondansetron orally disintegrating tablets may contain phenylalanine. Tell your doctor if you have phenylketonuria (PKU). How should I take ondansetron? Follow all directions on your prescription label. Do not take this medicine in larger or smaller amounts or for longer than recommended. Ondansetron can be taken with or without food. The first dose of ondansetron is usually taken before the start of your surgery, chemotherapy, or radiation treatment. Follow your doctor's dosing instructions very carefully. Take the ondansetron regular tablet with a full glass of water. To take the orally disintegrating tablet (Zofran ODT): ? Keep the tablet in its blister pack until you are ready to take it. Open the package and peel back the foil. Do not push a tablet through the foil or you may damage the tablet. ?? Use dry hands to remove the tablet and place it in your mouth. ?? Do not swallow the tablet whole. Allow it to dissolve in your mouth without chewing. ?? Swallow several times as the tablet dissolves. To use ondansetron oral soluble film (strip) (Zuplenz): ? Keep the strip in the foil pouch until you are ready to use the medicine. ?? Using dry hands, remove the strip and place it on your tongue. It will begin to dissolve right away. ?? Do not swallow the strip whole. Allow it to dissolve in your mouth without chewing. ?? Swallow several times after the strip dissolves. If desired, you may drink liquid to help swallow the dissolved strip. ?? Wash your hands after using Zuplenz. Measure liquid medicine with the dosing syringe provided, or with a special dose-measuring spoon or medicine cup. If you do not have a dose-measuring device, ask your pharmacist for one. Store at room temperature away from moisture, heat, and light. Store liquid medicine in an upright position. What happens if I miss a dose? Take the missed dose as soon as you remember. Skip the missed dose if it is almost time for your next scheduled dose. Do not take extra medicine to make up the missed dose. What happens if I overdose? Seek emergency medical attention or call the Poison Help line at . Overdose symptoms may include sudden loss of vision, severe constipation, feeling light-headed, or fainting. What should I avoid while taking ondansetron? Ondansetron may impair your thinking or reactions. Be careful if you drive or do anything that requires you to be alert. What are the possible side effects of ondansetron? Get emergency medical help if you have signs of an allergic reaction: rash, hives; fever, chills, difficult breathing; swelling of your face, lips, tongue, or throat. Call your doctor at once if you have: ? severe constipation, stomach pain, or bloating; ?? headache with chest pain and severe dizziness, fainting, fast or pounding heartbeats; ?? fast or pounding heartbeats; ?? jaundice (yellowing of the skin or eyes); ?? blurred vision or temporary vision loss (lasting from only a few minutes to several hours); ?? high levels of serotonin in the body--agitation, hallucinations, fever, fast heart rate, overactive reflexes, nausea, vomiting, diarrhea, loss of coordination, fainting. Common side effects may include: ? diarrhea or constipation; ?? headache; ?? drowsiness; or ?? tired feeling. This is not a complete list of side effects and others may occur. Call your doctor for medical advice about side effects. You may report side effects to FDA at 4-225-AEA-6268. What other drugs will affect ondansetron? Ondansetron can cause a serious heart problem, especially if you use certain medicines at the same time, including antibiotics, antidepressants, heart rhythm medicine, antipsychotic medicines, and medicines to treat cancer, malaria, HIV or AIDS. Tell your doctor about all medicines you use, and those you start or stop using during your treatment with ondansetron. Taking ondansetron while you are using certain other medicines can cause high levels of serotonin to build up in your body, a condition called 'serotonin syndrome,' which can be fatal. Tell your doctor if you also use: ? medicine to treat depression; ?? medicine to treat a psychiatric disorder; ?? a narcotic (opioid) medication; or ?? medicine to prevent nausea and vomiting. This list is not complete and many other drugs can interact with ondansetron. This includes prescription and kyvr-reu-uhascoi medicines, vitamins, and herbal products. Give a list of all your medicines to any healthcare provider who treats you. Where can I get more information? Your pharmacist can provide more information about ondansetron. Remember, keep this and all other medicines out of the reach of children, never share your medicines with others, and use this medication only for the indication prescribed. Every effort has been made to ensure that the information provided by [employer]. ('[employer]') is accurate, up-to-date, and complete, but no guarantee is made to that effect. Drug information contained herein may be time sensitive. [employer] information has been compiled for use by healthcare practitioners and consumers in the [place] and therefore [employer] does not warrant that uses outside of the [place] are appropriate, unless specifically indicated otherwise. [employer] drug information does not endorse drugs, diagnose patients or recommend therapy. [employer] drug information is an informational resource designed to assist licensed healthcare practitioners in caring for their patients and/or to serve consumers viewing this service as a supplement to, and not a substitute for, the expertise, skill, knowledge and judgment of healthcare practitioners. The absence of a warning for a given drug or drug combination in no way should be construed to indicate that the drug or drug combination is safe, effective or appropriate for any given patient. [employer] does not assume any responsibility for any aspect of healthcare administered with the aid of information [employer] provides. The information contained herein is not intended to cover all possible uses, directions, precautions, warnings, drug interactions, allergic reactions, or adverse effects. If you have questions about the drugs you are taking, check with your doctor, nurse or pharmacist. Copyright 4781-0467 [employer]. Version: 13.. Revision Date: 07/05/2016.acetaminophen and hydrocodone (a SEET a MIN oh fen and nurys droe KOE done) Hycet, Lorcet, Hermleigh, Verdrocet, Vicodin, Xodol, Zamicet What is the most important information I should know about acetaminophen and hydrocodone? MISUSE OF OPIOID MEDICINE CAN CAUSE ADDICTION, OVERDOSE, OR . Keep the medication in a place where others cannot get to it. An overdose of acetaminophen can damage your liver or cause . Call your doctor at once if you have pain in your upper stomach, loss of appetite, dark urine, or jaundice (yellowing of your skin or eyes). Taking opioid medicine during may cause life-threatening withdrawal symptoms in the . Fatal side effects can occur if you use opioid medicine with alcohol, or with other drugs that cause drowsiness or slow your breathing. Stop taking this medicine and call your doctor right away if you have skin redness or a rash that spreads and causes blistering and peeling. What is acetaminophen and hydrocodone? Hydrocodone is an opioid pain medication, sometimes called a narcotic. Acetaminophen is a less potent pain reliever that increases the effects of hydrocodone. Acetaminophen and hydrocodone is a combination medicine used to relieve moderate to severe pain. Acetaminophen and hydrocodone may also be used for purposes not listed in this medication guide. What should I discuss with my healthcare provider before taking acetaminophen and hydrocodone? You should not use this medicine if you are allergic to acetaminophen or hydrocodone, or if you have: ? severe asthma or breathing problems; or ?? a blockage in your stomach or intestines. Tell your doctor if you have ever had: ? liver disease; ?? a drug or alcohol addiction; ?? kidney disease; ?? a head injury or seizures; ?? urination problems; or ?? problems with your thyroid, pancreas, or gallbladder. If you use opioid medicine while you are , your baby could become dependent on the drug. This can cause life-threatening withdrawal symptoms in the baby after it is born. Babies born dependent on opioids may need medical treatment for several weeks. Do not breast-feed. This medicine can pass into breast milk and cause drowsiness, breathing problems, or in a nursing baby. How should I take acetaminophen and hydrocodone? Follow all directions on your prescription label. Never take this medicine in larger amounts, or for longer than prescribed. An overdose can damage your liver or cause . Tell your doctor if the medicine seems to stop working as well in relieving your pain. Always check your bottle to make sure you have received the correct pills (same brand and type) of medicine prescribed by your doctor. Never share this medicine with another person, especially someone with a history of drug abuse or addiction. MISUSE CAN CAUSE ADDICTION, OVERDOSE, OR . Keep the medicine in a place where others cannot get to it. Selling or giving away acetaminophen and hydrocodone is against the law. Measure liquid medicine carefully. Use the dosing syringe provided, or use a medicine dose-measuring device (not a kitchen spoon). If you need surgery or medical tests, tell the doctor ahead of time that you are using this medicine. You should not stop using this medicine suddenly. Follow your doctor's instructions about tapering your dose. Store at room temperature away from moisture and heat. Keep track of your medicine. You should be aware if anyone is using it improperly or without a prescription. Do not keep leftover opioid medication. Just one dose can cause in someone using this medicine accidentally or improperly. Ask your pharmacist where to locate a drug take-back disposal program. If there is no take-back program, flush the unused medicine down the toilet. What happens if I miss a dose? Since this medicine is used for pain, you are not likely to miss a dose. Skip any missed dose if it is almost time for your next dose. Do not use two doses at one time. What happens if I overdose? Seek emergency medical attention or call the Poison Help line at . An overdose of acetaminophen and hydrocodone can be fatal. The first signs of an acetaminophen overdose include loss of appetite, nausea, vomiting, stomach pain, sweating, and confusion or weakness. Later symptoms may include pain in your upper stomach, dark urine, and yellowing of your skin or the whites of your eyes. Overdose can also cause severe muscle weakness, pinpoint pupils, very slow breathing, extreme drowsiness, or coma. What should I avoid while taking acetaminophen and hydrocodone? Avoid driving or operating machinery until you know how this medicine will affect you. Dizziness or drowsiness can cause falls, accidents, or severe injuries. Do not drink alcohol. Dangerous side effects or could occur. Ask a doctor or pharmacist before using any other medicine that may contain acetaminophen (sometimes abbreviated as APAP). Taking certain medications together can lead to a fatal overdose. What are the possible side effects of acetaminophen and hydrocodone? Get emergency medical help if you have signs of an allergic reaction: hives; difficulty breathing; swelling of your face, lips, tongue, or throat. Opioid medicine can slow or stop your breathing, and may occur. A person caring for you should seek emergency medical attention if you have slow breathing with long pauses, blue colored lips, or if you are hard to wake up. In rare cases, acetaminophen may cause a severe skin reaction that can be fatal. This could occur even if you have taken acetaminophen in the past and had no reaction. Stop taking this medicine and call your doctor right away if you have skin redness or a rash that spreads and causes blistering and peeling. Call your doctor at once if you have: ? noisy breathing, sighing, shallow breathing; ?? a light-headed feeling, like you might pass out; ?? liver problems--nausea, upper stomach pain, tiredness, loss of appetite, dark urine, shakir-colored stools, jaundice (yellowing of the skin or eyes); or ?? low cortisol levels-- nausea, vomiting, loss of appetite, dizziness, worsening tiredness or weakness. Seek medical attention right away if you have symptoms of serotonin syndrome, such as: agitation, hallucinations, fever, sweating, shivering, fast heart rate, muscle stiffness, twitching, loss of coordination, nausea, vomiting, or diarrhea. Serious side effects may be more likely in older adults and those who are overweight, malnourished, or debilitated. Long-term use of opioid medication may affect fertility (ability to have children) in men or women. It is not known whether opioid effects on fertility are permanent. Common side effects include: ? dizziness, drowsiness, feeling tired; ?? nausea, vomiting, stomach pain; ?? constipation; or ?? headache. This is not a complete list of side effects and others may occur. Call your doctor for medical advice about side effects. You may report side effects to FDA at 5-256-WUE-6925. What other drugs will affect acetaminophen and hydrocodone? You may have breathing problems or withdrawal symptoms if you start or stop taking certain other medicines. Tell your doctor if you also use an antibiotic, antifungal medication, heart or blood pressure medication, seizure medication, or medicine to treat HIV or hepatitis C. Opioid medication can interact with many other drugs and cause dangerous side effects or . Be sure your doctor knows if you also use: ? cold or allergy medicines, bronchodilator asthma/COPD medication, or a diuretic ('water pill'); ?? medicines for motion sickness, irritable bowel syndrome, or overactive bladder; ?? other narcotic medications--opioid pain medicine or prescription cough medicine; ?? a sedative like Valium--diazepam, alprazolam, lorazepam, Xanax, Klonopin, Versed, and others; ?? drugs that make you sleepy or slow your breathing--a sleeping pill, muscle relaxer, medicine to treat mood disorders or mental illness; ?? drugs that affect serotonin levels in your body--a stimulant, or medicine for depression, Parkinson's disease, migraine headaches, serious infections, or nausea and vomiting. This list is not complete. Other drugs may affect acetaminophen and hydrocodone, including prescription and tkqm-baq-hvogkan medicines, vitamins, and herbal products. Not all possible interactions are listed here. Where can I get more information? Your doctor or pharmacist can provide more information about acetaminophen and hydrocodone. Remember, keep this and all other medicines out of the reach of children, never share your medicines with others, and use this medication only for the indication prescribed. Every effort has been made to ensure that the information provided by [facility]. ('[employer]') is accurate, up-to-date, and complete, but no guarantee is made to that effect. Drug information contained herein may be time sensitive. [employer] information has been compiled for use by healthcare practitioners and consumers in the [place] and therefore [employer] does not warrant that uses outside of the [place] are appropriate, unless specifically indicated otherwise. [employer] drug information does not endorse drugs, diagnose patients or recommend therapy. [employer] drug information is an informational resource designed to assist licensed healthcare practitioners in caring for their patients and/or to serve consumers viewing this service as a supplement to, and not a substitute for, the expertise, skill, knowledge and judgment of healthcare practitioners. The absence of a warning for a given drug or drug combination in no way should be construed to indicate that the drug or drug combination is safe, effective or appropriate for any given patient. [employer] does not assume any responsibility for any aspect of healthcare administered with the aid of information [employer] provides. The information contained herein is not intended to cover all possible uses, directions, precautions, warnings, drug interactions, allergic reactions, or adverse effects. If you have questions about the drugs you are taking, check with your doctor, nurse or pharmacist. Copyright 8607-8974 [facility]. Version: 15.02. Revision Date: 07/20/2018.phenazopyridine (fen AY norah PIR i chema) AZO Urinary Pain Relief, Azo-Gesic, Azo-Standard, Baridium, Prodium, Pyridium, Re-Azo, Uricalm What is the most important information I should know about phenazopyridine? You should not use phenazopyridine if you have kidney disease. What is phenazopyridine? Phenazopyridine is a pain reliever that affects the lower part of your urinary tract (bladder and urethra). Phenazopyridine is used to treat urinary symptoms such as pain or burning, increased urination, and increased urge to urinate. These symptoms can be caused by infection, injury, surgery, catheter, or other conditions that irritate the bladder. Phenazopyridine will treat urinary symptoms, but this medication will not treat a urinary tract infection.. Take any antibiotic that your doctor prescribes to treat an infection. Phenazopyridine may also be used for purposes not listed in this medication guide. What should I discuss with my health care provider before taking phenazopyridine? You should not use phenazopyridine if you are allergic to it, or if you have kidney disease. To make sure phenazopyridine is safe for you, tell your doctor if you have: ? liver disease; ?? diabetes; or ?? a genetic enzyme deficiency called ouetaio-7-mwtrfgxcb dehydrogenase (G6PD) deficiency. FDA category B. Phenazopyridine is not expected to harm an unborn baby. Do not use this medicine without a doctor's advice if you are . It is not known whether phenazopyridine passes into breast milk or if it could harm a nursing baby. Do not use this medicine without a doctor's advice if you are breast-feeding a baby. How should I take phenazopyridine? Use exactly as directed on the label, or as prescribed by your doctor. Do not use in larger or smaller amounts or for longer than recommended. Take phenazopyridine after meals. Drink plenty of liquids while you are taking phenazopyridine. Phenazopyridine will most likely darken the color of your urine to an orange or red color. This is a normal effect and is not harmful. Darkened urine may also cause stains to your underwear that may be permanent. Phenazopyridine can also permanently stain soft contact lenses, and you should not wear them while taking this medicine. Do not use phenazopyridine for longer than 2 days unless your doctor has told you to. This medication can cause unusual results with urine tests. Tell any doctor who treats you that you are using phenazopyridine. Store at room temperature away from moisture and heat. What happens if I miss a dose? Take the missed dose as soon as you remember. Skip the missed dose if it is almost time for your next scheduled dose. Do not take extra medicine to make up the missed dose. What happens if I overdose? Seek emergency medical attention or call the Poison Help line at . What should I avoid while taking phenazopyridine? Do not use this medication while wearing soft contact lenses. Phenazopyridine can permanently discolor soft contact lenses. What are the possible side effects of phenazopyridine? Get emergency medical help if you have any of these signs of an allergic reaction: hives; difficult breathing; swelling of your face, lips, tongue, or throat. Stop using phenazopyridine and call your doctor at once if you have: ? little or no urinating; ?? swelling, rapid weight gain; ?? confusion, loss of appetite, pain in your side or lower back; ?? fever, pale or yellowed skin, stomach pain, nausea and vomiting; or ?? blue or purple appearance of your skin. Common side effects may include: ? headache; ?? dizziness; or ?? upset stomach. This is not a complete list of side effects and others may occur. Call your doctor for medical advice about side effects. You may report side effects to FDA at 7-912-JRF-5382. What other drugs will affect phenazopyridine? Other drugs may interact with phenazopyridine, including prescription and jjnn-qva-lpiwuff medicines, vitamins, and herbal products. Tell each of your health care providers about all medicines you use now and any medicine you start or stop using. Where can I get more information? Your pharmacist can provide more information about phenazopyridine. Remember, keep this and all other medicines out of the reach of children, never share your medicines with others, and use this medication only for the indication prescribed. Every effort has been made to ensure that the information provided by [facility]. ('[employer]') is accurate, up-to-date, and complete, but no guarantee is made to that effect. Drug information contained herein may be time sensitive. [employer] information has been compiled for use by healthcare practitioners and consumers in the [place] and therefore [employer] does not warrant that uses outside of the [place] are appropriate, unless specifically indicated otherwise. [employer] drug information does not endorse drugs, diagnose patients or recommend therapy. [employer] drug information is an informational resource designed to assist licensed healthcare practitioners in caring for their patients and/or to serve consumers viewing this service as a supplement to, and not a substitute for, the expertise, skill, knowledge and judgment of healthcare practitioners. The absence of a warning for a given drug or drug combination in no way should be construed to indicate that the drug or drug combination is safe, effective or appropriate for any given patient. [facility] does not assume any responsibility for any aspect of healthcare administered with the aid of information [employer] provides. The information contained herein is not intended to cover all possible uses, directions, precautions, warnings, drug interactions, allergic reactions, or adverse effects. If you have questions about the drugs you are taking, check with your doctor, nurse or pharmacist. Copyright 5176-2295 [facility]. Version: 3.05. Revision Date: 01/06/2014.sulfamethoxazole and trimethoprim (SUL fa meth OX a zole and trye METH oh prim) Bactrim, Bactrim DS, Septra DS, SMZ-TMP DS What is the most important information I should know about sulfamethoxazole and trimethoprim? You should not use this medication if you have severe liver or kidney disease, anemia caused by folic acid deficiency, or a history of low blood platelets caused by taking trimethoprim or any sulfa drug. What is sulfamethoxazole and trimethoprim? Sulfamethoxazole and trimethoprim are both antibiotics that treat different types of infection caused by bacteria. Sulfamethoxazole and trimethoprim is used a combination antibiotic used to treat ear infections, urinary tract infections, bronchitis, traveler's diarrhea, shigellosis, and Pneumocystis jiroveci pneumonia. Sulfamethoxazole and trimethoprim may also be used for purposes not listed in this medication guide. What should I discuss with my healthcare provider before taking sulfamethoxazole and trimethoprim? You should not use this medication if you are allergic to sulfamethoxazole or trimethoprim, or if you have: ? severe liver or kidney disease; ?? anemia (low red blood cells) caused by folic acid deficiency; or ?? a history of low blood platelets caused by taking trimethoprim or any sulfa drug. To make sure sulfamethoxazole and trimethoprim is safe for you, tell your doctor if you have: ? kidney or liver disease; ?? a folic acid deficiency; ?? asthma or severe allergies; ?? a thyroid disorder; ?? HIV or AIDS; ?? porphyria (a genetic enzyme disorder that causes symptoms affecting the skin or nervous system); ?? a rqnomcn-0-zveasnnvx dehydrogenase deficiency (G6PD deficiency); or ?? if you are malnourished. FDA category D. Do not use sulfamethoxazole and trimethoprim if you are . It could harm the unborn baby. Use effective control, and tell your doctor if you become during treatment. This medicine can pass into breast milk and may harm a nursing baby. Tell your doctor if you are breast-feeding a baby. Do not give this medication to a child younger than 2 months old. Serious side effects may be more likely in older adults, especially those who take other medications such as digoxin or certain diuretics. How should I take sulfamethoxazole and trimethoprim? Follow all directions on your prescription label. Do not take this medicine in larger or smaller amounts or for longer than recommended. Shake the oral suspension (liquid) well just before you measure a dose. Measure the liquid with a special dose-measuring spoon or medicine cup. If you do not have a dose-measuring device, ask your pharmacist for one. Use this medication for the full prescribed length of time. Your symptoms may improve before the infection is completely cleared. Skipping doses may also increase your risk of further infection that is resistant to antibiotics. Sulfamethoxazole and trimethoprim will not treat a viral infection such as the common cold or flu. Drink plenty of fluids to prevent kidney stones while you are taking trimethoprim and sulfamethoxazole. This medication can cause unusual results with certain medical tests. Tell any doctor who treats you that you are using sulfamethoxazole and trimethoprim. Store at room temperature away from moisture, heat, and light. What happens if I miss a dose? Take the missed dose as soon as you remember. Skip the missed dose if it is almost time for your next scheduled dose. Do not take extra medicine to make up the missed dose. What happens if I overdose? Seek emergency medical attention or call the Poison Help line at . What should I avoid while taking sulfamethoxazole and trimethoprim? Antibiotic medicines can cause diarrhea, which may be a sign of a new infection. If you have diarrhea that is watery or bloody, stop taking this medication and call your doctor. Do not use anti-diarrhea medicine unless your doctor tells you to. Avoid exposure to sunlight or tanning beds. This medication can make you sunburn more easily. Wear protective clothing and use sunscreen (SPF 30 or higher) when you are outdoors. What are the possible side effects of sulfamethoxazole and trimethoprim? Get emergency medical help if you have any of these signs of an allergic reaction: hives; difficult breathing; swelling of your face, lips, tongue, or throat. Call your doctor at once if you have: ? diarrhea that is watery or bloody; ?? pale skin, feeling light-headed or short of breath, rapid heart rate, trouble concentrating; ?? sudden weakness or ill feeling, fever, chills, sore throat, new or worsening cough; ?? cold or flu symptoms, swollen gums, painful mouth sores, pain when swallowing, skin sores; ?? low levels of sodium in the body--headache, confusion, slurred speech, severe weakness, vomiting, loss of coordination, feeling unsteady; ?? liver problems--upper stomach pain, tired feeling, dark urine, shakir-colored stools, jaundice (yellowing of the skin or eyes); or ?? severe skin reaction--fever, sore throat, swelling in your face or tongue, burning in your eyes, skin pain, followed by a red or purple skin rash that spreads (especially in the face or upper body) and causes blistering and peeling. Common side effects may include: ? nausea, vomiting, loss of appetite; or ?? mild itching or rash. This is not a complete list of side effects and others may occur. Call your doctor for medical advice about side effects. You may report side effects to FDA at 7-742-KNV-9600. What other drugs will affect sulfamethoxazole and trimethoprim? Tell your doctor about all medicines you use, and those you start or stop using during your treatment with sulfamethoxazole and trimethoprim, especially: ? leucovorin; or ?? methotrexate. This list is not complete. Other drugs may interact with sulfamethoxazole and trimethoprim, including prescription and raki-wfr-zfzusbn medicines, vitamins, and herbal products. Not all possible interactions are listed in this medication guide. Where can I get more information? Your pharmacist can provide more information about sulfamethoxazole and trimethoprim. Remember, keep this and all other medicines out of the reach of children, never share your medicines with others, and use this medication only for the indication prescribed. Every effort has been made to ensure that the information provided by [facility]. ('[employer] is accurate, up-to-date, and complete, but no guarantee is made to that effect. Drug information contained herein may be time sensitive. [employer] information has been compiled for use by healthcare practitioners and consumers in the [place] and therefore [employer] does not warrant that uses outside of the [place] are appropriate, unless specifically indicated otherwise. [employer] drug information does not endorse drugs, diagnose patients or recommend therapy. [employer] drug information is an informational resource designed to assist licensed healthcare practitioners in caring for their patients and/or to serve consumers viewing this service as a supplement to, and not a substitute for, the expertise, skill, knowledge and judgment of healthcare practitioners. The absence of a warning for a given drug or drug combination in no way should be construed to indicate that the drug or drug combination is safe, effective or appropriate for any given patient. [employer] does not assume any responsibility for any aspect of healthcare administered with the aid of information [employer] provides. The information contained herein is not intended to cover all possible uses, directions, precautions, warnings, drug interactions, allergic reactions, or adverse effects. If you have questions about the drugs you are taking, check with your doctor, nurse or pharmacist. Copyright 8050-9387 [facility]. Version: 8.01. Revision Date: 08/29/2013. Emergency Awareness and Preventative Care STROKE is an EMERGENCY Every Minute Counts Act FAST and Check for these signs: FACE Does the face look uneven? ARM Does one arm drift down? SPEECH Does their speech sound strange? TIME Call at any sign of stroke Stroke Risk Factors Atrial Fibrillation (irregular heartbeat) Diabetes Family history of stroke Heart Disease Heavy alcohol use High Blood Pressure High Cholesterol Physical inactivity and obesity Smoking Cigarette Smoking The facts are clear, cigarette smoking will shorten your life. Smoking can cause many illnesses along the way. As a healthcare provider, we recommend that you stop smoking. Assistance with quitting is available by contacting 8-433-GKNPNOW. This is a free resource providing counseling, support, and referral. Or you may contact your personal physician. [place] Suicide Prevention Lifeline: The National Suicide Prevention Lifeline is a national network of local crisis centers that provides free and confidential emotional support to people in suicidal crisis or emotional distress 24 hours a day, 7 days a week. Don't Wait! Stop a Heart Attack Before it Starts What is a heart attack? A heart attack is damage or to a part of the heart from severely decreased or lack of blood flow to the heart. Over time, arteries can become narrow from the buildup of fat and cholesterol, which is called plaque. The plaque can rupture causing a blood clot to form. When the blood clot forms, the artery can become severely narrowed or completely blocked, causing a heart attack. Heart attack is the leading cause of in the [place]. 85% of muscle damage occurs within the first 2 hours. Delay in the recognition of heart attack symptoms increases the chances of . Know the early symptoms of a heart attack: Nausea Feeling of fullness in chest Jaw Pain Pain that travels down one or both arms Fatigue/being tired Anxiety Back Pain Chest pressure, squeezing, or discomfort Shortness of breath Sweating, or a cold sweat Feeling of impending doom There are unusual signs of a heart attack, too! Women, the elderly, and diabetics may present with atypical symptoms: Fainting/dizziness Weakness Confusion Risk Factors for a Heart Attack Some heart disease risk factors, such as age and family history, cannot be changed. Others, like smoking and lack of exercise, can be changed. Smoking High Cholesterol High Blood Pressure Family History Obesity Age Gender (Males are at higher risk) Lack of Exercise Diabetes Diet Stress Excessive Alcohol Intake If you or someone you know is experiencing the signs and symptoms of a heart attack, DON???T DELAY. Call immediately and seek help. If someone collapses, perform CPR! Do not attempt to drive if you are having symptoms of heart attack. Hands-Only CPR Why Hands-Only CPR? Hands-Only CPR has been shown to be as effective as conventional CPR for cardiac arrests that occur outside of a hospital. Survival depends on immediately receiving CPR from someone nearby. How do you perform Hands-Only CPR? There are two easy steps: Call 05-16- if you see a teen or adult collapse Push hard and fast in the center of the chest at a beat of 100 beats per minute. Save a life! 4 WAYS TO GET AHEAD OF SEPSIS SEPSIS is a MEDICAL EMERGENCY. Time matters! Infections put you and your family at risk for a life-threatening condition called sepsis. Sepsis is the body's extreme response to an infection. It is life-threatening, and without timely treatment, sepsis can rapidly lead to tissue damage, organ failure, and . Sepsis happens when an infection you already have-in your skin, lungs, urinary tract or somewhere else-triggers a chain reaction throughout your body. 1 PREVENT INFECTIONS Take good care of chronic conditions. Talk to your doctor about getting the recommended vaccines. 2 PRACTICE GOOD HYGIENE Wash your hands frequently. Keep cuts or open sores clean and covered until they are healed. 3 KNOW THE SYMPTOMS Confusion or disorientation Shortness of breath High heart rate Fever, shivering, or feeling very cold Extreme pain or discomfort Clammy or sweaty skin 4 ACT FAST Get medical care IMMEDIATELY if you suspect sepsis or if you have an infection that is not getting better or is getting worse. To learn more about sepsis and how to prevent infections, visit www.cdc.gov/sepsis. Patient Portal Reminder: Be sure to sign up for the [facility] patient portal, which gives you 07/04 access to your medical information ??? including these discharge instructions ??? using your computer, smartphone, or tablet. Just go to [facility] to get started. Questions? Call . Test Results Laboratory or Other Results This Visit (last charted value for your 12/25/2018 visit) No Laboratory or Other Results This Visit Patient Name:STEWART GUTIERREZ I have received this information and was given the opportunity to ask questions. Patient/Sheet Manufacturing Supervisor Name: Patient/Sheet Manufacturing Supervisor Signature: Relationship to Patient: Clinician/Hospital Sheet Manufacturing Supervisor Signature: Date: Electronically signed by Devaughn, [facility] Conversion Straddle Buggy Operator Sandra at 01/03/2023 3:56 PM CDT documented in this encounter Plan of Treatment Not on file documented as of this encounter Visit Diagnoses Not on filedocumented in this encounter
--- OUTSIDE RECORDS SUMMARY | 2025-07-04 09:17 | XMS_ITS | Encounter Summary ---
Author Organization [employer] ([place], [place], [place], [place]) Address [address] [place] [address] Care Team Providers Care Welding Estimator Name Role Phone Unavailable Primary Care Provider Unavailabl e Encounter Details Date Type Department Care Team (Late st Contact Info) Description 12/25/2018 Transcribed Document [facility] [place] Family Medicine [facility] [place] [address] ProviderSteffanie MD [address] [place] [address] Social History Tobacco Use Types Packs/Day Years Used Date Smoking Tobacco: Never Assessed Comments Unknown Sex and Gender Information Value Date Recorded Sex Assigned at Female 03/12/2022 8:26 PM CDT Legal Sex Female 8:26 PM CDT Gender Identity Female 03/12/2022 8:26 PM CDT Sexual Orientation Not on file documented as of this encounter Miscellaneous Notes * Cerner Conversion Note - Steffanie Lee MD - 12/25/2018 5:29 PM CDT Patient Education Materials Follows: General Anesthesia, Adult, Care After These instructions [...] For at least 24 hours after the procedure:??? Do not: ? Participate in activities where [...] activities are safe for you. ??? Take wtdv-jwh-ecpgxez and prescription medicines only as told by [...] eating again. ??? You cannot urinate after 8?12 hours. ??? You develop a skin rash. [...] 12/08/2001 Document Revised: 02/03/2017 Document Reviewed: 08/15/2016 [employer] Interactive Patient Education ? 2017 [employer] Urology Ureteral Stent Implantation, Care After Introduction Refer [...] After the procedure, it is common to have:??? Nausea. ??? Mild pain when you urinate. You may feel this pain in your lower back or lower abdomen. Pain should stop within a few minutes after you urinate. This may last for up to 1 week. ??? A small amount of blood in your urine for several days. Follow these instructions at home: Medicines??? Take vhvi-vng-bbeutpo and prescription medicines only as told by [...] heavy machinery while taking prescription pain medicines. Activity??? Return to your normal activities as told by your health care provider. Ask your health care provider what activities are safe for you. ??? Do notlift anything that is heavier than 10 lb (4.5 kg). Follow this limit for 1 week after your procedure, or for as long as told by your health care provider. General instructions??? Watch for any blood in your urine. Call your health care provider if the amount of blood in your urine increases. ??? If you have a catheter:? Follow instructions from your health care provider [...] 05/04/2014 Document Revised: 02/06/2017 Document Reviewed: 03/15/2016 ? 2017 Michael Cystoscopy, Care After Refer to this sheet [...] these instructions at home: Medicines ??? Take adyy-oua-kcyumpj and prescription medicines only as told by [...] 03/21/2006 Document Revised: 02/06/2017 Document Reviewed: 07/18/2016 [employer] Interactive Patient Education ? 2017 [employer] documented in this encounter Plan of Treatment Not on file documented as of this encounter Visit Diagnoses Not on filedocumented in this encounter
--- OUTSIDE RECORDS SUMMARY | 2025-07-04 09:17 | XMS_ITS | Clinical Summary ---
Author Organization [facility] Address [address] [place] [id number] Care Team Providers Care Snuff Grinder And Screener Name Role Phone Matthew Pedersen MD Primary Care Provider [phone] Allergies No known active allergies Medications phenazopyridine (PYRIDIUM) 100 MG tablet Take 200 mg by mouth 3 (Three) Times a Day As Needed for bladder spasms. Active Mirabegron ER (MYRBETRIQ) 25 MG tablet sustained-relea se 24 hour 24 hr tablet Take 50 mg by mouth Daily. Active sulfamethoxazol e-trimethoprim (BACTRIM DS,SEPTRA DS) 800-160 MG per tablet Take 1 tablet by mouth 2 (Two) Times a Day. Active oxyCODONE-aceta minophen (PERCOCET) 7.5-325 MG per tablet Take 1 tablet by mouth Every 6 (Six) Hours As Needed. Active oxyCODONE-aceta minophen (PERCOCET) 7.5-325 MG per tablet Take 1 tablet by mouth Every 6 (Six) Hours As Needed For Pain 20 tablet 01/04/2019 11:54 AM EDT 01/04/2019 Active sulfamethoxazol e-trimethoprim (BACTRIM DS,SEPTRA DS) 800-160 MG per tablet Take 1 tablet by mouth 2 (Two) Times a Day. 14 tablet 01/04/2019 Active phenazopyridine (PYRIDIUM) 200 MG tablet Take 1 tablet by mouth 3 (Three) Times a Day. 10 tablet 01/04/2019 Active Active Problems No known active problems Social History Tobacco Use Types Packs/Day Years Used Date Smoking Tobacco: Every Day Cigarettes Smokeless Tobacco: Never Alcohol Use Standard Drinks/Week Comments No 0 (1 standard drink = 0.6 oz pur e alcohol) AUDIT-C Answer Date Recorded Frequency of Alcohol Consumption Never 01/01/2019 Average Number of Drinks Not on file 019 Frequency of Binge Drinking Not on file 12/14 Abuse Screen Answer Date Recorded Unsafe at Home or Work/School Not on file Feels Threatened by Someone? Not on file 08/2023 Does Anyone Keep You from Co ntacting Others or Doint Things Outside the Home? Not on file 06/26/2023 Physical Sign of Abuse Present Not on file 1 Housing Stability Answer Date Recorded Current Living Arrangements Not on file 06/15 Potentially Unsafe Housing Conditions Not on denilson e 06/26/2023 Family and Community Support Answer Yimi e Recorded Help with Day-to-Day Activities Not on file 06/26/2023 Lonely or Isolated Not on file 06/26/2023 Employment Answer Date Recorded Do you want help finding or keeping work or a gela b? Not on file 06/26/2023 Disabilities Answer Date Recorded Concentrating, Remembering, or Making Decisions Difficulty Not on file 06/26/2023 Doing Errands Independently Difficulty Not on fi le 06/26/2023 Education Answer Date Recorded Help with school or training? Not on file Preferred Language Not on file 06/26/2023 Comments No Sex and Gender Information Value Date Recorded Sex Assigned at Not on file Legal Sex Female 2:32 PM EDT Gender Identity Not on file Sexual Orientation Not on file Last Filed Vital Signs Vital Sign Reading Time Taken Comments Blood Pressure 137/85 01/04/2019 11:30 AM EDT Pulse 77 01/04/2019 11:30 AM EDT Temperature 36.5 C (97.7 F) 01/04/2019 11:00 AM EDT Respiratory Rate 16 01/04/2019 11:00 AM EDT Oxygen Saturation 97% 01/04/2019 11:30 AM EDT Inhaled Oxygen Concentration - - Weight 80.3 kg (177 lb) 01/04/2019 8:37 AM EDT Height 162.6 cm (5' 4 ) 01/04/2019 8:37 AM EDT Body Mass Index 30.38 01/04/2019 8:37 AM EDT Plan of Treatment Health Maintenance Due Date Last Done Comments ANNUAL PHYSICAL 1975 Annual Gynecologic Pelvic an d Breast Exam 1975 HEPATITIS C SCREENING 1975 TDAP/TD VACCINES (1 - Tdap) 11/30/1995 MAMMOGRAM 2016 COLOGUARD 2021 COLON CANCER SCREENING 5 YEA R SIGMOIDOSCOPY 2021 COLONOSCOPY 2021 [address]AL CANCER SCREENING 2021 CT COLONOGRAPHY 2021 FECAL OCCULT BLOOD TEST 2021 FIT Testing (1 year) 2021 INFLUENZA VACCINE 04/15/2025 Pneumococcal Vaccine 0-49 Aged Out No longer eligible based on patient's age to complete this topic Medical Devices Implanted Type Area Janitorial Maintenance Worker Device Identifier Shelf Expiration Date Model / Serial / Lot Stent Percuflx No Gw 4.8x24 - [id number] Implanted:Qty: 1 on 01/04/2019 by Rufus Osei MD at [facility] Stent Left: Ureter [employer] 10/04/2021 [id number] / / [id number] Insurance [address] Care Teams Snuff Grinder And Screener Relationship Specialty Start Date End Date Matthew Pedersen MD [address] [facility] [address] [place] [address] PCP - General Adolescent Medicine 01/04/19
--- OUTSIDE RECORDS SUMMARY | 2025-07-04 09:18 | XMS_ITS | Referral Summary ---
Author Organization [employer] ([place], [place], [place], [place]) Address [address] [place] [address] Care Team Providers Care Food Service Team Member Name Role Phone Unavailable Primary Care Provider Unavailabl e Social History Tobacco Use Types Packs/Day Years Used Date Smoking Tobacco: Never Assessed Comments Unknown Sex and Gender Information Value Date Recorded Sex Assigned at Female 03/12/2022 8:26 PM CDT Legal Sex Female 8:26 PM CDT Gender Identity Female 03/12/2022 8:26 PM CDT Sexual Orientation Not on file Plan of Treatment Not on file
--- OUTSIDE RECORDS SUMMARY | 2025-07-04 09:18 | XMS_ITS | Clinical Summary ---
Author Organization [employer] ([place], [place], [place], [place]) Address [address] [place] [address] Care Team Providers Care Hay Stacker Name Role Phone Unavailable Primary Care Provider [...]
--- OUTSIDE RECORDS SUMMARY | 2025-07-04 09:18 | XMS_ITS | Encounter Summary ---
Author Organization [employer] ([place], [place], [place], [place]) Address [address] [place] [address] Care Team Providers Care Aws Solution Architect Name Role Phone Unavailable Primary Care Provider Unavailabl e Encounter Details Date Type Department Care Team (Late st Contact Info) Description 12/25/2018 Transcribed Document [facility] [place] Family Medicine [facility] [place] [address] ProviderSteffanie MD [facility] [place] [address] Social History Tobacco Use Types [...] 12/25/2018 2:55 PM CDT [facility] OR IntraOp Summary Primary Physician: EHSAN HALL MD-URO Finalized Date/Time: 12/25/18 15:29:26 Pt. Name: [email or web address].B./Sex: 1975 Female Med Rec #: [id number] Physician: EHSAN HALL MD-URO Financial #: [id number] Pt. Type: O Room/Bed: [facility]/4 Admit/Disch: 12/25/18 12:03:00 - Institution: [facility] [place] IntraOp Case Attendance Entry 1 Entry 2 Entry 3 Case Attendee EHSAN HALL HARRIMAN, KELLY, NA Hess, Tabetha L RN -URO Role Performed Surgeon/Proceduralist, LIGHT OIL OPERATOR/Nurse Department Specialist Bike Technician, First First Time In 12/25/18 14:44:00 12/25/18 14:44:00 12/25/18 14:44:00 Time Out 12/25/18 15:29:00 12/25/18 15:29:00 12/25/18 15:29:00 Procedure Cystoscopy Cystoscopy Cystoscopy Ureteroscopy, Ureteroscopy, Ureteroscopy, Cystoscopy Stent Cystoscopy Stent Cystoscopy Stent Insertion, Cystoscopy Insertion, Cystoscopy Insertion, Cystoscopy Laser Stone Manipulation Laser Stone Manipulation Laser Stone Manipulation Other Attendee Superficial Wound Closed By: Last Modified By: Coco Eason, Coco López, Coco López RN 12/25/18 15:29:20 12/25/18 15:29:20 12/25/18 15:29:20 Entry 4 Entry 5 Entry 6 Case Attendee Glenys Beal, Scrub ABHINAV RODRIGUEZ, YVONNE Vance, Tech Landscape Maintenance Internship Role Performed Scrub, First Laser French Weaver Laser French Weaver Time In 12/25/18 14:44:00 12/25/18 14:44:00 12/25/18 15:00:00 Time Out 12/25/18 15:29:00 12/25/18 15:01:00 12/25/18 15:29:00 Procedure Cystoscopy Cystoscopy Cystoscopy Ureteroscopy, Ureteroscopy, Ureteroscopy, Cystoscopy Stent Cystoscopy Stent Cystoscopy Stent Insertion, Cystoscopy Insertion, Cystoscopy Insertion, Cystoscopy Laser Stone Manipulation Laser Stone Manipulation Laser Stone Manipulation Other Attendee Superficial Wound Closed By: Last Modified By: Coco Eason RN Hess, Tabetha L, Coco López RN 12/25/18 15:29:20 12/25/18 15:29:20 12/25/18 15:29:20 [facility] IntraOp Case Attendance Audit 12/25/18 15:29:20 Staff Counselor: DAVIE Modifier: DAVIE 1 <+> Time Out 1 <*> Procedure Cystoscopy Ureteroscopy, Cystoscopy Stent Insertion, Cystoscopy Laser Stone Manipulation 2 <+> Time In 2 <+> Time Out 2 <*> Procedure Cystoscopy Ureteroscopy, Cystoscopy Stent Insertion, Cystoscopy Laser Stone Manipulation 3 <+> Time In 3 <+> Time Out 3 <*> Procedure Cystoscopy Ureteroscopy, Cystoscopy Stent Insertion, Cystoscopy Laser Stone Manipulation 4 <+> Time In 4 <+> Time Out 4 <*> Procedure Cystoscopy Ureteroscopy, Cystoscopy Stent Insertion, Cystoscopy Laser Stone Manipulation 5 <+> Time In 5 <*> Procedure Cystoscopy Ureteroscopy, Cystoscopy Stent Insertion, Cystoscopy Laser Stone Manipulation 6 <+> Time Out 6 <*> Procedure Cystoscopy Ureteroscopy, Cystoscopy Stent Insertion, Cystoscopy Laser Stone Manipulation [facility] IntraOp Case Times Entry 1 Patient In Room Time 12/25/18 14:44:00 Out Room Time 12/25/18 15:29:00 Anesthesia Start Time 12/25/18 14:44:00 Stop Time 12/25/18 15:29:00 Anesthesia Ready 12/25/18 14:44:00 Surgery / Procedure Times Start Time 12/25/18 14:55:00 Stop Time 12/25/18 15:20:00 Last Modified By: Coco Eason RN 12/25/18 15:29:18 [facility] IntraOp Case Times Audit 12/25/18 15:29:18 Staff Counselor: HESSTL Modifier: HESSTL <+> 1 Out Room Time <+> 1 Stop Time 12/25/18 15:20:41 Staff Counselor: HESSTL Modifier: HESSTL <+> 1 Stop Time [facility] IntraOp Communication Entry 1 Communication To Family/Significant other Comment communication board Communication By Coco Eason RN Last Modified By: Coco Eason RN 12/25/18 15:01:24 [facility] IntraOp Counts Verification Entry 1 Procedure Cystoscopy Ureteroscopy, Cystoscopy Stent Insertion, Cystoscopy Laser Stone Manipulation Count Info Count Type Sponge Counts Verification Baseline/pre-procedure Sequence Count Results Correct, surgeon notified Counts Performed By Count Performed By Glenys Beal Scrub (Scrub) Tech Count Performed By Coco Eason RN (RN) Last Modified By: Coco Eason RN 12/25/18 15:01:36 [facility] IntraOp Counts Final Entry 1 Procedure Cystoscopy Ureteroscopy, Cystoscopy Stent Insertion, Cystoscopy Laser Stone Manipulation Final Count Info Count Type Sponge Counts Verification Skin Closure/end of Sequence procedure Count Results Correct, surgeon notified Counts Performed By Count Performed By Glenys Beal, Eldaub (Scrub) Tech Count Performed By Coco Eason RN (RN) Last Modified By: Coco Eason RN 12/25/18 15:01:47 [facility] IntraOp Cultures and Spec Summary Entry 1 Cultrures and Specimens Specimen Ordered: Yes Specimens Types Pathology Specimen(s) Labeled Pathology and Sent to Last Modified By: Coco Eason RN 12/25/18 15:17:01 [facility] IntraOp Departure from OR Entry 1 Integumentary Assessment Integumentary WDL Assessment WDL Transfer/Handoff Transfer to PACU Phase I Handoff Method Bedside/Face to face Post-op Transport Stretcher/Gurney Via Patient Transport TAMEKA FRAGA NA, Accompanied by Coco Eason RN Last Modified By: Coco Eason RN 12/25/18 15:01:54 [facility] IntraOp Fire Risk Assessment Entry 1 Fire Info Surgical Site or 0- No Incision Above the Xyphoid Open O2 Source 0- No (Mask or Cannula) Available Ignition 1- Yes (ESU, Laser, Light Source) Fire Risk 1 Assessment Score Fire Score Fire Risk Yes Assessment Complete Fire Risk Coco Eason RN Assessment Verified By Fire Risk 12/25/18 14:44:00 Assessment Verified Date/Time Fire Risk Standard Fire Yes Safety Precautions Followed Last Modified By: Coco Eason RN 12/25/18 15:20:38 [facility] IntraOp Fire Risk Assessment Audit 12/25/18 15:20:38 Staff Counselor: DAVIE Modifier: HESSTL <+> 1 Fire Risk Assessment Verified By [facility] IntraOp General Case Instructor Tap Dancing 1 Case Information OR OR 10 [facility] Case Level 1 Room Verified Yes Wound Class II - Clean-Contaminated Specialty SN Urology Anesthesia Type General ASA Class 2 Diagnosis Preop Diagnosis left ureteral stone Postop Same As Preop No Postop Diagnosis see md postop note Last Modified By: Coco Eason RN 12/25/18 15:04:46 [facility] IntraOp Intraoperative Assessment Entry 1 Valid History / Yes Physical in Chart Preoperative Yes Checklist Reviewed/Evaluated Allergies Reviewed Yes Patient is Latex No Sensitive Isolation Not applicable Precautions Noted Level of WDL Consciousness (WDL = Alert, Oriented to Person, Place, and Time) Skin Assessment Yes Verified Present Upon IVs Arrival to OR Last Modified By: Coco Eason RN 12/25/18 15:04:51 [facility] IntraOp Intraoperative Equipment Entry 1 Type Monitoring Equipment Intraop Monitoring Electrocardiogram Three lead placement (ECG) Electrode Placement Blood Pressure Non-Invasive BP Device Source Blood Pressure Arm, left upper Location Pulse Oximeter Hand, right Probe Site Antiembolic Devices Antiembolic Devices Sequential compression device, knee high Antiembolic Device Bilateral Location Scopes Photo/Video Documentation Intraop Equipment bilateral scds on and Comment working before pt asleep Last Modified By: Coco Eason RN 12/25/18 15:05:33 [facility] IntraOp Medication Admin Entry 1 Entry 2 Medication/Irrigant Isovue-300 50ml - lidocaine 2% urojet [id number] 10ml jelly - [id number] Combo Med List Time Administered Route of Administration Dose Dose Unit of Measure Volume Administered By Procedure Irrigation Irrigant Volume In Irrigant Volume Out Last Modified By: Coco Eason RN Hess, Tabetha L, RN 12/25/18 15:05:00 12/25/18 15:05:00 [facility] IntraOp Patient Positioning Entry 1 Procedure Cystoscopy Ureteroscopy, Cystoscopy Stent Insertion, Cystoscopy Laser Stone Manipulation Body Position Lithotomy Left Arm Position Resting at side Right Arm Position Resting at side Left Leg Position Secured in Leg Rodriguez Right Leg Position Secured in Leg Rodriguez Feet Uncrossed Yes Pressure Points Yes Checked Positioning Devices Stirrups/Leg Rodriguez, Cysto Positioned By Coco Eason RN, TAMEKA FRAGA NA, ADKINS, TIMOTHY D, MD-URO Position Verified Positioning Yes Verified by Anesthesia Positioning Yes Verified by Surgeon Last Modified By: Coco Eason RN 12/25/18 15:05:40 [facility] IntraOp Sign In Entry 1 Patient, Site, Yes Procedure Identified Surgical Consent Yes Confirmed Relevant Surgical Yes Documents Available Surgical Site Yes Marked by person performing procedure Anesthesia Machine Yes Check Completed Medication Checks Yes Completed Allergies Yes Airway Difficult No Airway/Aspiration Risk Difficult Yes Airway/Aspiration Intervention Equipment Available Blood Loss Risk No Blood Loss No Intervention Equipment Prepared and Ready Hypothermia Risk Yes Warming Measures Yes Taken Last Modified By: Coco Eason RN 12/25/18 15:05:43 [facility] Intra Op Sign Out Entry 1 RN Confirmation Surgical Yes Procedure(s) Identified Instrument, Sponge Yes and Sharps Counts Correct/Documented Equipment Problems N/A Documented Urinary Catheter N/A Documented in IView Carlson Patient Yes Recovery Concerns Reviewed with Anesthesia Provider, Surgeon and RN Carlson Patient Yes Management Concerns Reviewed with Anesthesia Provider, Surgeon and RN Safety Checklist Yes Elements Complete? RN Sign Out Coco Eason RN Signature RN Sign Out 12/25/18 15:29:00 Signature Date/Time Plan of Care Outcome - Fire Risk OUTCOME STATEMENT: Goal met Patient is free from injury related to surgical fire Plan of Care Outcome - Pt Positioning OUTCOME STATEMENT: Goal met Absence of signs and symptoms of positioning injury. Plan of Care Outcome - Skin Prep OUTCOME STATEMENT: Goal met Intraoperative care is consistent with measures to prevent infection Plan of Care Outcome - Xray/Images OUTCOME STATEMENT: Goal met Absence of observable signs or symptoms of radiation injury Plan of Care Outcome - Counts OUTCOME STATEMENT: Goal met Absence of signs and symptoms of injury related to extraneous objects Last Modified By: Coco Eason RN 12/25/18 15:29:22 [facility] Intra Op Sign Out Audit 12/25/18 15:29:22 Staff Counselor: DAVIE Modifier: HESSTL <+> 1 RN Sign Out Signature Date/Time [facility] IntraOp Skin Prep Entry 1 Procedure Cystoscopy Ureteroscopy, Cystoscopy Stent Insertion, Cystoscopy Laser Stone Manipulation Prescribed Yes Pre-Surgical Prep Completed Prep Area op site Intraop Prep Prep Agents Betadine solution Prep by Coco Eason RN Hair Removal Methods No hair removal performed Last Modified By: Coco Eason RN 12/25/18 15:05:57 [facility] IntraOp Surgical Procedures Entry 1 Entry 2 Entry 3 Procedure Cystoscopy Ureteroscopy Cystoscopy Stent Cystoscopy Laser Stone Insertion Manipulation Modifiers Additional LEFT URETEROSCOPY WITH Procedure STONE EXTRACTION; STENT Description PLACEMENT Primary Procedure Yes No No Primary Surgeon EHSAN HALL, EHSAN HALL, EHSAN HALL MD-URO -URO -URO Start 12/25/18 14:55:00 12/25/18 14:55:00 12/25/18 14:55:00 Stop 12/25/18 15:20:00 12/25/18 15:20:00 12/25/18 15:20:00 Physician States Cecum Reached Anesthesia Type General General General Specialty SN Urology SN Urology SN Urology Wound Class II - Clean-Contaminated II - Clean-Contaminated II - Clean-Contaminated Last Modified By: Coco Eason RN Hess, Tabetha L, RN Hess, Coco L, RN 12/25/18 15:20:42 12/25/18 15:20:42 12/25/18 15:20:42 [facility] IntraOp Surgical Procedures Audit 12/25/18 15:20:42 Staff Counselor: DAVIE Modifier: DAVIE <+> 1 Stop <+> 2 Stop <+> 3 Stop [facility] IntraOp Time Out Entry 1 Procedure to be Cystoscopy Performed Ureteroscopy, Cystoscopy Stent Insertion, Cystoscopy Laser Stone Manipulation Time Out Time Out Pause Time 12/25/18 14:54:00 All activity Yes suspended (unless life threatening emergency) Team Verbally Correct patient Confirms Information identity, Correct side and site are marked, Consent form is present and accurate, Agreement on the procedure to be done, Correct patient position, Relevant images/results properly labeled/appropriately displayed, Confirm antibiotics have been administered, Confirm the skin prep has dried, Confirm prosthesis/implant/devic e is present, Performed in location of procedure after prepped/draped Antibiotic Yes Prophylaxis Administered Or In Progress Within the Last 60 Minutes Beta Zoya N/A Administered Venous Yes Thromboembolism Prophylaxis Required Anticipated Critical Events Surgeon None expected Anesthesia Provider None expected Nursing Assures Sterility of instruments Essential Imaging N/A Labeled and Displayed Last Modified By: Coco Eason RN 12/25/18 15:06:26 Case Comments <None> Finalized By: Coco Esaon RN Document Signatures Signed By: Coco Eason RN 12/25/18 15:29 Electronically signed by Devaughn [facility] Conversion Patient Financial Coordinator Cerner at 01/03/2023 4:06 PM CDT documented in this encounter Plan of Treatment Not on file documented as of this encounter Visit Diagnoses Not on filedocumented in this encounter
[2025-07-04] MEDS: ACETAMINOPHEN 325MG TAB 650 MG PO (09:35)
[2025-07-04] MEDS: BROMPHEN/DM/PSE COUGH SYRUP 5ML 5 ML PO (09:35)
[2025-07-04] MEDS: IPRATROPIUM/ALBUTEROL 3 ML NEB IH (09:36)
--- NOTE | 2025-07-04 09:52 | PC.NURSE ---
PT COMPLETED NEB TREATMENT. NO NEEDS AT THIS TIME. CALL LIGHT WITHIN REACH
[2025-07-04 10:00] VITALS: BP 152/111; PULSE 71; O2SAT 96
[2025-07-04 10:10] VITALS: BP 152/111; PULSE 69; RESP 18; TEMP 36.7; O2SAT 98
== END 2025-07-04 10:14 | disposition home or self-care (01) ==
PROVIDERS: Emergency Provider Student in an Organized Health Care Education/Training Program; PCP Internal Medicine Adolescent Medicine
DX: R50.9 Fever, unspecified (principal); R09.81 Nasal congestion; J06.9 Acute upper respiratory infection, unspecified; F17.210 Nicotine dependence, cigarettes, uncomplicated; Z71.6 Tobacco abuse counseling
CPT/HCPCS: 71046; 87636; 93005; 99284